=== PATIENT | female | born 1935 | race Caucasian/White ===

== ENCOUNTER 2017-05-07 17:24 | Emergency (ER) | payer MEDICARE, OTHER, SELFPAY ==
[2017-05-07 17:26] VITALS: BP 132/79; PULSE 93; RESP 16; TEMP 36.6; O2SAT 99; BMI 25.4
--- NOTE | 2017-05-07 17:31 | ED.RN ---
PT REPORTS ACHING IN CHEST. RESPIRATORY CALLED FOR EKG.
--- NOTE | 2017-05-07 17:53 | ED.VISSUMM ---
- ER Visit Summary Date of Service: 05/07/17 Chief Complaint: Diarrhea and I just do not feel well History of Present Illness: The patient is a 81 F past medical history of hypertension, high cholesterol and renal insufficiency. Patient's had a prior cholecystectomy and appendectomy. States she has not felt well for weeks. She has had diarrhea. Denies any melena. She has had nausea without vomiting. She has had decreased appetite and decreased intake. Denies any fever. Denies any weight loss. Physical Examination: Elderly female no acute distress. Vital signs are stable afebrile. Pulse ox 9 9% on room air no signs of hypoxia. HEENT exam mildly driving his membranes otherwise unremarkable. Neck nontender no lymphadenopathy. Lungs to auscultation bilaterally. Heart regular rhythm no murmur. Chest nontender. Abdomen soft nondistended normal bowel sounds no peritoneal signs. No organ megaly or masses. No pulsatile masses. Both the right upper right lower quadrant unremarkable. No signs of obstruction. No hernias. She is moving all 4 extremities. They are nontender. No edema. Normal range of motion. Bilateral equal symmetrical dorsi plantar flexion. Bilateral survey technologist strength. Back exam nontender. Neurologically she is awake and alert. Test Results: CBC normal. EKG sinus rhythm rate of 91 with no HI or ischemia. Left bundle branch block. BMP showed potassium of 2.8 she has had low potassium as before. She is on potassium replacement. BUN 25 creatinine 1.25 which is also baseline. Hepatic panel normal. Lipase normal. Troponin normal. Chest x-ray portable one view showed no acute abnormality read both by myself and the radiologist. Emergency Department Course and Treatment: Patient with a very nondescript abdominal discomfort does not feel well. Her exam is benign other than possibly mildly dehydrated. She will be treated with IV fluids and IV Zofran. Labs will be obtained. Treatment Plan: Repeat exam at 1905 the patient is doing well. We discussed all her test results. She states she is currently on potassium she will double that for the next week. Plenty of fluids. Zofran for nausea and follow-up with her primary care physician. Disposition: Discharge Impression: Acute diarrhea of uncertain etiology Hypokalemia Chronic renal insufficiency This note was generated with [employer] software. It may contain incorrect words, spelling, and punctuation that were not noted in review of the chart prior to signing ED Disposition - Plan for ED Patient: Chief Complaint: Diarrhea Referrals: Celio Dumas MD [NON-STAFF] -
[2017-05-07 17:56] VITALS: O2SAT 98
--- NOTE | 2017-05-07 17:56 | ED.DCSUM_ITS ---
- ER Visit Summary Date of Service: 05/07/17 Chief Complaint: Diarrhea and I just do not feel well History of Present Illness: The patient is a 81 F past medical history of hypertension, high cholesterol and renal insufficiency. Patient's had a prior cholecystectomy and appendectomy. States she has not felt well for weeks. She has had diarrhea. Denies any melena. She has had nausea without vomiting. She has had decreased appetite and decreased intake. Denies any fever. Denies any weight loss. Physical Examination: Elderly female no acute distress. Vital signs are stable afebrile. Pulse ox 9 9% on room air no signs of hypoxia. HEENT exam mildly driving his membranes otherwise unremarkable. Neck nontender no lymphadenopathy. Lungs to auscultation bilaterally. Heart regular rhythm no murmur. Chest nontender. Abdomen soft nondistended normal bowel sounds no peritoneal signs. No organ megaly or masses. No pulsatile masses. Both the right upper right lower quadrant unremarkable. No signs of obstruction. No hernias. She is moving all 4 extremities. They are nontender. No edema. Normal range of motion. Bilateral equal symmetrical dorsi plantar flexion. Bilateral chief communications officer strength. Back exam nontender. Neurologically she is awake and alert. Test Results: CBC normal. EKG sinus rhythm rate of 91 with no SD or ischemia. Left bundle branch block. BMP showed potassium of 2.8 she has had low potassium as before. She is on potassium replacement. BUN 25 creatinine 1.25 which is also baseline. Hepatic panel normal. Lipase normal. Troponin normal. Chest x-ray portable one view showed no acute abnormality read both by myself and the radiologist. Emergency Department Course and Treatment: Patient with a very nondescript abdominal discomfort does not feel well. Her exam is benign other than possibly mildly dehydrated. She will be treated with IV fluids and IV Zofran. Labs will be obtained. Treatment Plan: Repeat exam at 1905 the patient is doing well. We discussed all her test results. She states she is currently on potassium she will double that for the next week. Plenty of fluids. Zofran for nausea and follow-up with her primary care physician. Disposition: Discharge Impression: Acute diarrhea of uncertain etiology Hypokalemia Chronic renal insufficiency This note was generated with [employer] software. It may contain incorrect words, spelling, and punctuation that were not noted in review of the chart prior to signing ED Disposition - Plan for ED Patient: Chief Complaint: Diarrhea Referrals: Celio Dumas MD [NON-STAFF] -
[2017-05-07] MEDS: 0.9% Normal Saline 1,000 ML 1000 ML IV (17:57)
--- NOTE | 2017-05-07 18:03 | EKG12_ITS ---
Test Reason : CP Blood Pressure : / mmHG Vent. Rate : 091 BPM Atrial Rate : 091 BPM P-R Int : 160 ms QRS Dur : 136 ms QT Int : 416 ms P-R-T Axes : 050 -25 106 degrees QTc Int : 511 ms Normal sinus rhythm Left bundle branch block Abnormal ECG Confirmed by MANOLO SOMMER, CARLOS ([id number]), newspaper managing editor RAYMOND MONTAÑO ([id number]) on 05/09/2017 4:07:05 PM Referred By: HOME Confirmed By:CARLOS FRENCH MD
--- NOTE | 2017-05-07 18:15 | RAD_ITS ---
STUDY: X-RAY CHEST REASON FOR EXAM: Female, 81 years old. Vertigo, shortness of breath and diarrhea. TECHNIQUE: Single AP portable view of the chest. COMPARISON: Prior comparison studies are not available for review at this time. FINDINGS: Cardiac monitoring leads are present. There is hyperinflation of the lungs consistent with chronic obstructive lung disease (COPD). There is mild interstitial thickening present in both lungs. There is no demonstrated pleural abnormality. There is borderline cardiomegaly. Normal mediastinum and jacob. Normal visualized pulmonary arteries. There is atherosclerotic calcification of the aortic arch with tortuosity. There is demineralization of the osseous structures. Normal visualized ribs, clavicles, and shoulders. There is no demonstrated abnormality of the visualized soft tissue structures of the upper abdomen. RAD/Chest 1 View (Portable) IMPRESSION: No radiographic evidence of acute cardiopulmonary disease. Electronically Signed: Ginny Rosenthal MD at 18:45 EST , Service support ,
[2017-05-07 18:22] LABS: Absolute Neutrophil Count 8.3 X10^3/uL (2.0-7.7); Basophil# 0.01 X10^3/uL; Basophil% 0.1 % (0-1); Eosinophil# 0.11 X10^3/uL; Eosinophils% 1.1 % (0-5); Hematocrit 36.9 % (37-47); Hemoglobin 12.4 g/dl (12.0-15.0); Lymphocyte % 6.2 % (19-41); Mean Corp Hgb Conc 33.6 g/gl (32-36); Mean Corpuscular Hgb 30.2 pg (27.0-32.0); Mean Corpuscular Volume 89.8 fL (81-99); Mean Platelet Vol. 9.3 fl (6.2-12.0); Monocyte# 0.57 X10^3/uL; Monocyte% 5.9 % (0-10); Neutrophil # 8.31 X10^3/uL (2.7-7.7); Neutrophil % 86.6 % (47-70); Platelet Count 248 K/mm3 (150-450); RBC Distribution Width CV 13.5 % (11.6-14.6); RBC Distribution Width SD 44.4 fl (35.1-43.9); Red Blood Count 4.11 M/mm3 (4.2-5.4); White Blood Count 9.6 K/mm3 (4.4-11.0)
[2017-05-07 18:23] LABS: Differential Indicated SCAN CRITERIA MET; POSITIVE COUNT NO; POSITIVE DIFFERENTIAL YES; POSITIVE MORPHOLOGY NO
[2017-05-07 18:31] LABS: AST(SGOT) 20 U/L (15-37); Alanine Aminotransfer ALT/SGPT 22 U/L (13-56); Albumin, Serum 3.5 g/dL (3.2-5.0); Alkaline Phosphatase 44 U/L (45-117); Anion Gap 12 (5-15); BUN 25 mg/dL (7-18); Bilirubin, Direct 0.13 mg/dL (0.00-0.30); Calcium,Total 8.3 mg/dL (8.5-10.1); Chloride 101 mmol/L (98-107); Creatinine, Serum 1.25 mg/dL (0.55-1.02); EST Glomerular Filtration Rate 44 mL/min (>60); Est Glom Filt Rate - Afr Amer 53 mL/min (>60); Estimated Creatinine Clearance 25.78 ml/min; Globulin 4.1 g/dL (2.2-4.2); Glucose 129 mg/dL (74-106); Lipase 228 U/L (73-393); Potassium 2.8 mmol/L (3.5-5.1); Protein, Total 7.6 g/dL (6.4-8.2); Sodium Level 138 mmol/L (136-145)
[2017-05-07 18:37] LABS: Anisocytosis RARE; Platelet Estimate ADEQUATE (ADEQ)
--- OUTSIDE RECORDS SUMMARY | 2017-05-07 18:50 | XMS RPT_ITS ---
:1935 Author Organization OHIP Care Team Providers Name Role Phone CARLOS ORTEGA Attending Unavailable CARLOS ORTEGA Referring Unavailable GRETCHEN VIEIRA (PA) Attending Unavailable GRETCHEN VIEIRA (PA) Referring Unavailable CARLOS ORTEGA Referring Unavailable CARLOS ORTEGA Attending Unavailable CARLOS ORTEGA Referring Unavailable MICHELLE DUNHAM (SALES RECRUITER) Attending Unavailable MICHELLE DUNHAM (SALES RECRUITER) Referring Unavailable CARLOS ORTEGA Attending Unavailable CARLOS ORTEGA Referring Unavailable Celio Ortega Primary Care Unavailable Refugio Sanches Attending Unavailable Celio Tello Attending Unavailable Denny Case Primary Care Unavailable PROBLEMS PROBLEMS DATE TYPE CONDITION / CODE ATTENDING STATUS SOURCE 09/30/2016 Active Low back pain / NA Active [facility] M54.5(ICD-10) [facility] [place] Repository 07/02/2016 Active Essential NA Active [facility] (primary) Clinic Main hypertension / [place] I10(ICD-10) Repository 07/02/2016 Active Disorder of kidney NA Active [facility] and ureter, Clinic Main unspecified / [place] N28.9(ICD-10) Repository 06/27/2016 Active Urinary tract NA Active [facility] infection, site Clinic Main not specified / [place] N39.0(ICD-10) Repository 05/23/2016 Active Hyperglycemia, NA Active [facility] unspecified / Clinic Main R73.9(ICD-10) [facility] Repository 05/23/2016 Active Cystitis, NA Active [facility] unspecified Clinic Main without hematuria [place] / N30.90(ICD-10) Repository 05/17/2016 Active Unknown / CARLOS ORTEGA Active [place] UNK(Medicity R Clinic Main Unknown) [place] Repository 05/20/2016 Admitting ACUTE CYSTITIS Sanches, Refugio Active [facility] diagnosis WITHOUT HEMATURIA Community / N30.00(ICD-10) Hospital Repository 05/20/2016 Admitting HYPOKALEMIA / Sanches, Refugio Active [place] diagnosis E87.6(ICD-10) [facility] Repository 05/20/2016 Admitting OTHER ABNORMAL Sanches, Refugio Active [place] diagnosis GLUCOSE / Community R73.09(ICD-10) Hospital Repository 05/20/2016 Admitting 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, Refugio Active [place] diagnosis DISEASE W STAGE 5 [facility] Hospital / I12.0(ICD-10) Repository 05/20/2016 Admitting END STAGE RENAL Sanches, Refugio Active [place] diagnosis DISEASE / Community N18.6(ICD-10) Hospital Repository 05/20/2016 Admitting PURE Sanches, Refugio Active [facility] diagnosis HYPERCHOLESTEROLEM Community [place], UNSPECIFIED / Hospital E78.00(ICD-10) Repository 05/20/2016 Admitting INTERMEDIATE Sanches, Refugio Active [place] diagnosis (CURRENT) USE OF [facility] ASPIRIN / Hospital Z79.82(ICD-10) Repository 05/20/2016 Admitting OTHER INTERMEDIATE Sanches, Refugio Active [facility] diagnosis (CURRENT) DRUG [facility] THERAPY / Hospital Z79.899(ICD-10) Repository PROCEDURES PROCEDURES No Procedure Records FoundRESULTS RESULTS CBC W/DIFF, AUTOMATED Collected: 05/07/2017 Status: F Source: [facility] 6:00 PM [facility] REPOSITORY TYPE CODE TESTS RESULT OUT OF RANGE REFERENCE UNITS LAB L100.1000 Normal 4.4-11.0 K/mm3 WBC 9.6 LAB L100.1200 Low 4.2-5.4 M/mm3 RBC 4.11 LAB L100.1300 Normal 12.0-15.0 g/dl HGB 12.4 LAB L100.1400 Low 37-47 % HCT 36.9 LAB L100.1500 Normal 81-99 fL MCV 89.8 LAB L100.1600 Normal 27.0-32.0 pg MCH 30.2 LAB L100.1700 Normal 32-36 g/gl MCHC 33.6 LAB L100.1810 Normal 11.6-14.6 % RDW 13.5 CV LAB L100.1820 High 35.1-43.9 fl RDW 44.4 SD LAB L100.1900 Normal 150-450 K/mm3 PLT 248 LAB L100.2000 Normal 6.2-12.0 fl MPV 9.3 LAB L100.2100 High 47-70 % NEUT% 86.6 LAB L100.2200 Low 19-41 % LY% 6.2 LAB L100.2300 Normal 0-10 % MONO% 5.9 LAB L100.2400 Normal 0-5 % EO% 1.1 LAB L100.2500 Normal 0-1 % BASO% 0.1 LAB L100.2550 Normal 0.0-0.9 % IM 0.100 GRAN % Result Comment: IG% - Immature Granulocytes (promyelocytes, myelocytes andmetamyelocytes) > 1% indicates that a LEFT SHIFT is Present. LAB L100.2620 High 2.0-7.7 X10 3/uL Absolute 8.3 Neut LAB L100.2720 Low 0.83-4.51 X10 3/ul Absolute 0.60 Lymph LAB L100.4500 Normal SMEAR SEE COMMENT COMMENT Result Comment: LYMPHOPENIA NOTED LAB L100.5500 Normal ADEQ PLT ADEQUATE EST LAB L100.7300 Normal ANISO RARE Performed By: #### L100.0100 ####[facility] [id number] [place], [place], [address] BASIC METABOLIC Collected: 05/07/2017 Status: F Source: [place] PROFILE ([facility]) 6:00 PM [facility] REPOSITORY Order Comment: 'TROP' Serial specimen #1, #2, #3, or #4: 1 TYPE CODE TESTS RESULT OUT OF RANGE REFERENCE UNITS LAB L501.0100 High 74-106 mg/dL GLU 129 Result Comment: Fasting Glucose result greater than or equal to 126 mg/ dLsuggests DIABETES MELLITUS per A.D.A. criteria.Please note revised GLUCOSE reference range /02/2018. LAB L501.1000 High 7-18 mg/dL BUN 25 LAB L501.1100 High 0.55-1.02 mg/dL CREAT,SERUM 1.25 Result Comment: The validity of the calculated GFR AND GFRAA in patients over70 years has not been determined. Clinical correlation isessential. LAB L501.1110 Low >60 mL/min EST GFR 44 Result Comment: Non- GFR Calc LAB L501.1115 Low >60 mL/min EST GFR - AA 53 Result Comment: GFR Calc LAB L501.1255 Normal ml/min Estimated 25.78 CRCL LAB L501.1300 Normal 10-20 RATIO BUN/CRE 20.0 LAB L501.2200 Low 8.5-10 mg/dL CA 8.3 .1 LAB L501.5300 Normal 136-14 mmol/L NA 138 5 LAB L501.5600 Low 3.5-5. mmol/L K 2.8 1 LAB L501.5900 Normal 98-107 mmol/L CL 101 LAB L501.6100 Normal 21.0-3 mmol/L CO2 25.0 2.0 LAB L501.6200 Normal 5-15 GAP 12 Performed By: #### L500.2500, L500.3400, L501.2450, L501.4010 ####[facility] [address] [place], [place], [address] LIVER PROFILE Collected: 05/07/2017 Status: F Source: [place] 6:00 PM [facility] REPOSITORY Order Comment: 'TROP' Serial specimen #1, #2, #3, or #4: 1 TYPE CODE TESTS RESULT OUT OF RANGE REFERENCE UNITS LAB L501.1500 Normal 6.4-8.2 g/dL T 7.6 PROT LAB L501.1800 Normal 3.2-5.0 g/dL ALB 3.5 LAB L501.1950 Normal 2.2-4.2 g/dL GLOB 4.1 LAB L501.4100 Normal 15-37 U/L AST 20 LAB L501.4305 Low 45-117 U/L ALK P 44 LAB L501.4405 Normal 13-56 U/L ALT 22 Result Comment: Please note revised ALT reference range vlwbynciw70/28/2018. LAB L501.4600 Normal 0.20-1.00 mg/dL T BILI 0.50 LAB L501.4700 Normal 0.00-0.30 mg/dL D BILI 0.13 Performed By: #### L500.2500, L500.3400, L501.2450, L501.4010 ####[facility] [address] [place], [address] LIPASE Collected: 05/07/2017 Status: F Source: [place] 6:00 PM [facility] REPOSITORY Order Comment: 'TROP' Serial specimen #1, #2, #3, or #4: 1 TYPE CODE TESTS RESULT OUT OF RANGE REFERENCE UNITS LAB L501.2450 Normal 73-393 U/L LIPASE 228 Performed By: #### L500.2500, L500.3400, L501.2450, L501.4010 ####[facility] [address] [place], [address] TROPONIN-I Collected: 05/07/2017 Status: F Source: [place] 6:00 PM [facility] REPOSITORY Order Comment: 'TROP' Serial specimen #1, #2, #3, or #4: 1 TYPE CODE TESTS RESULT OUT OF RANGE REFERENCE UNITS LAB L501.4010 Normal <0.06 ng/mL < TROPONIN-I 0.02 Result Comment: TROPONIN-I EXPECTED VALUES <0.05 NEGATIVE 0.06 - 0.59 AT RISK OF AR > OR = 0.60 SUGGEST AR Performed By: #### L500.2500, L500.3400, L501.2450, L501.4010 ####[facility] [address] [place], [address] CHEST 1 VIEW Observed: 05/07/2017 Status: F Source: [place] (PORTABLE) 5:54 PM [facility] RE[facility]ITORY [facility] [id number] [place], [place] [address]Nxmtw 1 View (Portable)MR#: [id number] Acct: [id number]: TALA LOONEY Rep #: [id number]: 1935 F 81 From: Ginny Rosenthal MDPCP: Celio Ortega MD Status: PRE ERStudy: Chest 1 View (Portable) Date of Exam: 05/07/17Exam# [id number] Ordering Dr: Celio Tello MDSTUDY: X-RAY CHESTREASON FOR EXAM: Female, 81 years old. Vertigo, shortness of breath anddiarrhea.TECHNIQUE: Single AP portable view of the chest.COMPARISON: Prior comparison studies are not available for review at thistime. FINDINGS:Cardiac monitoring leads are present.There is hyperinflation of the lungs consistent with chronic obstructivelung disease (COPD). There is mild interstitial thickening present in bothlungs. There is no demonstrated pleural abnormality.There is borderline cardiomegaly. Normal mediastinum and jacob. Normalvisualized pulmonary arteries. There is atherosclerotic calcification ofthe aortic arch with tortuosity.There is demineralization of the osseous structures. Normal visualizedribs, clavicles, and shoulders.There is no demonstrated abnormality of the visualized soft tissuestructures of the upper abdomen. ORDER #: [id number] RAD/Chest 1 View (Portable)IMPRESSION:No radiographic evidence of acute cardiopulmonary disease.Electronically Signed:Ginny Rosenthal MD at 18:45 ESTTel , Service support , HD: Celio Ortega MD; Celio Tello MD Refractory Technician:Signed OBSOLETE Observed: 04/04/2017 Status: COMPLETED Source: [place] 12:00 AM [facility] REPOSITORY Refill (ALECWS) ---------TALA LOONEY ([id number]) 1935 FDate Time Provider Department04/04/17 CARLOS ORTEGA During your visit today, we recorded the following information about you:Carlos Ortega MD 04/04/2017 10: 34 AM SignedThe following approved medication requests have been transmitted electronically.Signed Prescriptions Disp Refills metoprolol succinate ER (TOPROL XL) 50 mg 24 hr tablet 135 tablet 0 Sig: TAKE ONE TABLET BY MOUTH IN THE MORNING AND TAKE ONE-HALF tablet IN THEEVENING JUSTICE: No Authorizing Provider: CARLOS ORTEGA MDAllergies As of Date: 04/04/2017 Noted Allergy ReactionDEMEROL (MEPERIDINE (PF)) 09/10/2014 14 - Other: See Comments Comments: knocked me for a loopINFLUENZA VAC TYP A,B SURF ANT 12/28/2004PENICILLINS 12/28/2004SULFA (SULFONAMIDE ANTIBIOTICS) 05/28/2016 14 - Other: See Comments Comments : pharmacist has sulfa as allergy 05/27/2016Date Reviewed: 12/12/2016Reviewed by: Ayanna George Ma - Fully AssessedReason for Visit: Refill Request [94]Order(s):metoprolol succinate ER (TOPROL XL) 50 mg 24 hr tabletTAKE ONE TABLET BY MOUTH IN THE MORNING AND TAKE ONE-HALF tablet IN THE EVENINGDisp: 135 tabletRfl: 0Prescriptions as of 04/04/2017 Sig: METOPROLOL SUCCINATE ER 50 MG* TAKE ONE TABLET BY MOUTH IN T* AMLODIPINE 5 MG TABLET TAKE ONE TABLET BY MOUTH EVER* TRIAMTERENE 37.5 MG-HYDROCHLO* Take 1 capsule by mouth once * POTASSIUM CHLORIDE ER 20 MEQ * TAKE ONE TABLET BY MOUTH ONCE* ATORVASTATIN 10 MG TABLET Take 1 tablet by mouth once d* CHOLECALCIFEROL (VITAMIN D3) * Take 1 tablet by mouth once d* CALCIUM 500 MG TABLET Take 1 tablet by mouth twice * ASPIRIN 81 MG CAPSULE,DELAYED* Take by mouth once daily.Problem List As Of Date 04/04/2017 Noted Resolved Essential hypertension [I10] Mixed hyperlipidemia [E78.2] OSTEOPOROSIS NOS [M81.0] ANEMIA NOS [D64.9] BUNDLE BRANCH BLOCK NOS [I45.4] More... APPENDICITIS ACUTE [K35.80] INVALID FOR*2008 Hypokalemia [E87.6] INVALID FOR* Change in bowel habits [R19.4] INVALID FOR*Prescriptions ordered this encounter Disp Refills Start End METOPROLOL SUCCINATE ER 50 MG TABLET* 135 * 0 04/04/2017 Cmt: This prescription was filled on . Any refills authorized will be placed on file. Sig: TAKE ONE TABLET BY MOUTH IN THE MORNING AND TAKE ONE-HALF tablet IN THE EVENINGMedications Discontinued During This Encounter metoprolol succinate ER (TOPROL XL) * 135 * 3 07/04/2016 04/04/2017 Si tablet by mouth in the morning and 1/2 tablet in the evening, total of 75 mg daily. Disc: Reason for discontinue is not on file. Status:Closed by NAT GALVEZ on OBSOLETE Observed: 03/25/2017 Status: COMPLETED Source: [place] 12:00 AM [facility] REPOSITORY Refill (FAMPWS) ---------TALA LOONEY ([id number]) 1935 FDate Time Provider Department03/25/17 CARLOS ORTEGA During your visit today, we recorded the following information about you:Kandi Phelanheather Rios 03/25/2017 10:12 AM SignedPlease see patient's MyChart requestCarlos Ortega MD 03/27/2017 7:58 AM SignedThe following approved medication requests have been transmitted electronically.She has appt in June with Dr CaseSigned Prescriptions Disp Refills amLODIPine (NORVASC) 5 mg tablet 90 tablet 0 Sig: TAKE ONE TABLET BY MOUTH EVERY DAY JUSTICE: No Authorizing Provider: CARLOS ORTEGA MDAllergies As of Date: 03/25/2017 Noted Allergy ReactionDEMEROL (MEPERIDINE (PF)) 09/10/2014 14 - Other: See Comments Comments: knocked me for a loopINFLUENZA VAC TYP A, B SURF ANT 12/28/2004PENICILLINS 12/28/2004SULFA (SULFONAMIDE ANTIBIOTICS) 05/28/2016 14 - Other: See Comments Comments: pharmacist has sulfa as allergy 2016Date Reviewed: 12/12/2016Reviewed by: Ayanna George Ma - Fully AssessedReason for Visit : Refill Request [94]Order(s):amLODIPine (NORVASC) 5 mg tabletTAKE ONE TABLET BY MOUTH EVERY DAYDisp: 90 tabletRfl: 0Prescriptions as of 03/25/2017 Sig: AMLODIPINE 5 MG TABLET TAKE ONE TABLET BY MOUTH EVER* TRIAMTERENE 37.5 MG-HYDROCHLO* Take 1 capsule by mouth once * POTASSIUM CHLORIDE ER 20 MEQ * TAKE ONE TABLET BY MOUTH ONCE* METOPROLOL SUCCINATE ER 50 MG* 1 tablet by mouth in the mor* ATORVASTATIN 10 MG TABLET Take 1 tablet by mouth once d* CHOLECALCIFEROL (VITAMIN D3) * Take 1 tablet by mouth once d* CALCIUM 500 MG TABLET Take 1 tablet by mouth twice * ASPIRIN 81 MG CAPSULE,DELAYED* Take by mouth once daily.Problem List As Of Date 03/25/2017 Noted Resolved Essential hypertension [I10] Mixed hyperlipidemia [E78.2] OSTEOPOROSIS NOS [M81.0] ANEMIA NOS [D64.9] BUNDLE BRANCH BLOCK NOS [I45.4] More... APPENDICITIS ACUTE [K35.80] INVALID FOR*2008 Hypokalemia [E87.6] INVALID FOR* Change in bowel habits [R19.4] INVALID FOR*Prescriptions ordered this encounter Disp Refills Start End AMLODIPINE 5 MG TABLET 90 t* 0 03/27/2017 Cmt: This prescription was filled on . Any refills authorized will be placed on file. Sig: TAKE ONE TABLET BY MOUTH EVERY DAYMedications Discontinued During This Encounter amLODIPine (NORVASC) 5 mg tablet 90 t * 3 06/28/2016 03/27/2017 Route: ORAL Sig: Take 1 tablet by mouth once daily. Disc: Reason for discontinue is not on file. Status:Closed by NAT GALVEZ on 03/28/17 OBSOLETE Observed: 02/14/2017 Status: COMPLETED Source: [place] 12:00 AM [facility] REPOSITORY Refill (FAMPWS) ---------TALA LOONEY ([id number]) 1935 FDate Time Provider Sxekczixee11/12/17 CARLOS ORTEGAPKALYN During your visit today, we recorded the following information about you:Daphne Marko Psr 02/14/2017 11:15 AM SignedPatient has been identified by name and date of : YesRX INSTRUCTIONS:Patient aware RX will be sent to pharmacy. No need to notify patient.Daphne Marko DerLori Patricia CLARK 2016 12:03 PM SignedLOV: 12/12/16NOV: 05/16/[address] Rothman REFILL: 08/16/16 #90 w 1 refillCarlos Ortega MD 02/14/2017 5:36 PM SignedThe following approved medication requests have been transmitted electronically.Signed Prescriptions Disp Refills triamterene- hydrochlorothiazide 37.5-25 mg per capsule 90 capsule 1 Sig: Take 1 capsule by mouth once daily. JUSTICE: No Authorizing Provider: CARLOS ORTEGA MDRoxanne James Ma 02/15/2017 9:25 AM SignedThe following approved medication requests have been transmitted electronically.Signed Prescriptions Disp Refills triamterene-hydrochlorothiazide 37.5-25 mg per capsule 90 capsule 1 Sig: Take 1 capsule by mouth once daily. JUSTICE: No Authorizing Provider: CARLOS ORTEGA As of Date: 02/14/2017 Noted Allergy ReactionDEMEROL (MEPERIDINE (PF)) 09/10 14 - Other: See Comments Comments: knocked me for a loopINFLUENZA VAC TYP A,B SURF ANT 12/28/2004PENICILLINS 12/28/2004SULFA (SULFONAMIDE ANTIBIOTICS) 05/28/2016 14 - Other: See Comments Comments: pharmacist has sulfa as allergy 05/27/2016Date Reviewed: 2016Reviewed by: Ayanna George Ma - Fully AssessedReason for Visit: Refill Request [94]Reason For Visit History RecordedVisit Diagnosis:Essential hypertension [I10]Order(s):triamterene- hydrochlorothiazide 37.5-25 mg per capsuleTake 1 capsule by mouth once daily.Disp: 90 capsuleRfl: 1Prescriptions as of 02/14/2017 Sig: TRIAMTERENE 37.5 MG-HYDROCHLO* Take 1 capsule by mouth once * POTASSIUM CHLORIDE ER 20 MEQ * TAKE ONE TABLET BY MOUTH ONCE* METOPROLOL SUCCINATE ER 50 MG* 1 tablet by mouth in the mor* AMLODIPINE 5 MG TABLET Take 1 tablet by mouth once d* ATORVASTATIN 10 MG TABLET Take 1 tablet by mouth once d* CHOLECALCIFEROL (VITAMIN D3) * Take 1 tablet by mouth once d* CALCIUM 500 MG TABLET Take 1 tablet by mouth twice * ASPIRIN 81 MG CAPSULE,DELAYED* Take by mouth once daily.Problem List As Of Date 02/14/2017 Noted Resolved Essential hypertension [I10] Mixed hyperlipidemia [E78.2] OSTEOPOROSIS NOS [M81.0] ANEMIA NOS [D64.9] BUNDLE BRANCH BLOCK NOS [I45.4] More... APPENDICITIS ACUTE [K35.80] INVALID FOR*01/19/2009 Hypokalemia [E87.6] INVALID FOR* Change in bowel habits [R19.4] INVALID FOR*Prescriptions ordered this encounter Disp Refills Start End TRIAMTERENE 37.5 MG-HYDROCHLOROTHIAZ* 90 c* 1 02/14/2017 Route: ORAL Sig: Take 1 capsule by mouth once daily.Medications Discontinued During This Encounter triamterene-hydrochlorothiazide 37.5* 90 c* 1 08/16/2016 02/14/2017 Route: ORAL Sig: Take 1 capsule by mouth once daily. Disc: Reason for discontinue is not on file. Status:Closed by ELVIA REYNOLDS MA on 02/15/17 OBSOLETE Observed: 01/14/2017 Status: COMPLETED Source: [place] 12:00 AM [facility] REPOSITORY Refill (FAMPWS) ---------TALA LOONEY ([id number]) 1935 FDate Time Provider Raedrupvix90/11/17 CARLOS ORTEGA During your visit today, we recorded the following information about you:Carlos Ortega MD 01/16/2017 1: 44 PM SignedThe following approved medication requests have been transmitted electronically.Signed Prescriptions Disp Refills potassium chloride ER (K-DUR, KLOR-CON) 20 mEq tablet 90 tablet 3 Sig : TAKE ONE TABLET BY MOUTH ONCE DAILY JUSTICE: No Authorizing Provider: CARLOS ORTEGA [facility] As of Date: 01/14/2017 Noted Allergy ReactionDEMEROL (MEPERIDINE (PF)) 09/10/2014 14 - Other: See Comments Comments: knocked me for a loopINFLUENZA VAC TYP A, B SURF ANT 12/28/2004PENICILLINS 12/28/2004SULFA (SULFONAMIDE ANTIBIOTICS) 05/28/2016 14 - Other: See Comments Comments: pharmacist has sulfa as allergy 2016Date Reviewed: 12/12/2016Reviewed by: Ayanna George Ma - Fully AssessedReason for Visit : Refill Request [94]Order(s):potassium chloride ER (K-DUR, KLOR-CON) 20 mEq tabletTAKE ONE TABLET BY MOUTH ONCE DAILYDisp: 90 tabletRfl: 3Prescriptions as of 01/14/2017 Sig: POTASSIUM CHLORIDE ER 20 MEQ * TAKE ONE TABLET BY MOUTH ONCE* TRIAMTERENE 37.5 MG-HYDROCHLO* Take 1 capsule by mouth once * METOPROLOL SUCCINATE ER 50 MG* 1 tablet by mouth in the mor* AMLODIPINE 5 MG TABLET Take 1 tablet by mouth once d* ATORVASTATIN 10 MG TABLET Take 1 tablet by mouth once d* CHOLECALCIFEROL (VITAMIN D3) * Take 1 tablet by mouth once d* CALCIUM 500 MG TABLET Take 1 tablet by mouth twice * ASPIRIN 81 MG CAPSULE,DELAYED* Take by mouth once daily.Problem List As Of Date 01/14/2017 Noted Resolved Essential hypertension [I10] Mixed hyperlipidemia [E78.2] OSTEOPOROSIS NOS [M81.0] ANEMIA NOS [D64.9] BUNDLE BRANCH BLOCK NOS [I45.4] More... APPENDICITIS ACUTE [K35.80] INVALID FOR*2008 Hypokalemia [E87.6] INVALID FOR* Change in bowel habits [R19.4] INVALID FOR*Prescriptions ordered this encounter Disp Refills Start End POTASSIUM CHLORIDE ER 20 MEQ TABLET,* 90 t* 3 01/16/2017 Cmt: This prescription was filled on 01/14/2017. Any refills authorized will be placed on file. Sig: TAKE ONE TABLET BY MOUTH ONCE DAILYMedications Discontinued During This Encounter potassium chloride ER (K-DUR, KLOR-C* 90 t * 3 05/03/2016 01/16/2017 Route: ORAL Sig: Take 1 tablet by mouth once daily. Disc: Reason for discontinue is not on file. Status:Closed by SHIMA LOPEZ MA on 01/16/17 PROGRESS Observed: 12/12/2016 Status: COMPLETED Source: [place] 3:23 PM [facility] [place] REPOSITORY HNO ID: [id number]: Carlos Bolivarice: (none) Author Type: PhysicianType: Progress NotesFiled: 12/12/2016 3:25 PMNote Text:Chief ComplaintPatient presents with:F/U 6 MonthHPIRita B Aayush is a 81 year old female who presents here today forfollow-up of pre-diabetes, hypertension .ACTIVE PROBLEM LISTEssential HypertensionMixed HyperlipidemiaOsteoporosis, UnspecifiedAnemia, UnspecifiedBundle Branch Block, UnspecifiedHypokalemiaChange in Bowel HabitsPast medical history, appointments, medications, allergies reviewed.Previous Medical HistoryPAST MEDICAL HISTORYDiagnosis Date- Anemia, unspecified- Bundle branch block, unspecified left- Osteoporosis, unspecified- Other and unspecified hyperlipidemia- Other symptoms involving digestive system(787.99)- Unspecified hypertensive heart disease without heart failurePrevious Surgical HistoryPAST SURGICAL HISTORYProcedure Laterality Date- COLONOSCOP W/ OR W/O [facility] SPEC 12/24/10- LAPAROSCOPY, SURGICAL, APPENDECTOMY 4-55-44Lgmqlt HistoryFAMILY HISTORYProblem Relation Age of Onset- Cancer Brother prostate- Blood Disease Sister 87Patient AllergiesALLERGIESAllergen Reactions- Demerol [Meperidine* Other: See Comments knocked me for a loop- Influenza Vac Typ A*- Penicillins- Sulfa (Sulfonamide * Other: See Comments pharmacist has sulfa as allergy 05/27/2016Current MedicationsCurrent Outpatient Prescriptions on File Prior to Visit:triamterene-hydrochlorothiazide 37.5-25 mg per capsule Take 1 capsule bymouth once daily.metoprolol succinate ER (TOPROL XL) 50 mg 24 hr tablet 1 tablet by mouthin the morning and 1/2 tablet in the evening, total of 75 mg daily.amLODIPine (NORVASC) 5 mg tablet Take 1 tablet by mouth once daily.atorvastatin (LIPITOR) 10 mg tablet Take 1 tablet by mouth once daily.sulfamethoxazole-trimethoprim (BACTRIM) 400-80 mg per tablet Take 2tablets by mouth twice daily.predniSONE (DELTASONE) 50 mg tab Take 1 tablet by mouth as directed. Ifany hives or rash from Sulfa antibioticsdiphenhydrAMINE (BENADRYL) 50 mg capsule Take 1 capsule by mouth asdirected. If any hives or rash from Sulfa antibioticspotassium chloride ER (K-DUR, KLOR-CON) 20 mEq tablet Take 1 tablet bymouth once daily.Cholecalciferol, Vitamin D3, 2,000 unit cap Take 1 tablet by mouth oncedaily.calcium, elemental, Tab Take 1 tablet by mouth twice daily.Aspirin 81 mg ORAL CpDR Take by mouth once daily.No current facility-administered medications on file prior to visit.Social HistorySocial History Marital status: Spouse name: Years of education: Number of children:Social History Main Topics Smoking status: Never Smoker Smokeless status: Never Used Alcohol use: No Drug use: NoSocial History Narrative 2005. 3 years but were together for years prior. Briefprevious marriage. Brother 2013.ROS:General: Feels well, no weight changes, fever, chills.HEENT: No sinus congestion, earache, sore throat.Cardiac: No chest pain, palpitations, shortness of breathResp: No cough, wheeze.GI: No reflux symptoms, food intolerance, bowel changes.: No urinary frequency, dysuria.MS: No pain or joint complaints.PHYSICAL EXAMINATIONBP 140/70 Pulse 74 Resp 16 Wt 59.4 kg (131 lb) BMI 25.58 kg/g0Dhlebdr: Alert and oriented, no distress, pleasant and cooperative.Heart: Regular, normal S1 and S2, no murmurs, rubs, or gallopsLungs: Clear to auscultation bilaterallyAbdomen: BenignExtremities: Feet/ankles without edema, posterior tibial pulses full andsymmetricalHealth Maintenance ListZOSTAVAX due on 1996DIABETES SCREEN due on 10/01/2019TETANUS due on 7BONE DENSITY CompletedADULT PREVNAR-13 CompletedPNEUMOVAX AGE 65 AND OVER WITH 5YR LOOKBACK CompletedData reviewedLab ResultsComponent Value Date/TimeCHOL 187 01/04/2016 09:24 AMHDL 45 (L) 01/04/2016 09:24 AMLDL 105 01/04/2016 09:24 IACCW0C 6.1 (H) 05/23/2016 09:58 AMAssessment/Plan:(I10) Essential hypertension (primary encounter diagnosis)Comment:Plan: COMP METABOLIC PANEL(E78.2) Mixed hyperlipidemiaComment :Plan: LIPID PANEL BASIC(Z88.7) History of influenza vaccine allergyComment:Plan: appropriately declines shot(R73.9) HyperglycemiaComment:Plan: HGB A1C, COMP METABOLIC PANELLabs ordered for before next appt. Dr Wang medications selected for refill.RTO:Carlos Ortega MD CNOV Observed: 12/12/2016 Status: COMPLETED Source: MOBILE 2:40 PM [facility] REPOSITORY Office Visit (FAMPWS) ---------TALA LOONEY ([id number]) 1935 [facility] Tgtovnqiub97/9/17 2:40 PM CARLOS ORTEGA During your visit today, we recorded the following information about you: Pulse Respiration Blood pressure Weight 74/minute 16/minute 140/70 59.4 kgCarlos Ortega MD 12/12/2016 3:25 PM SignedChief ComplaintPatient presents with:F/U 6 MonthHPIRita B Aayush is a 81 year old female who presents here today for follow-upof pre-diabetes, hypertension .ACTIVE PROBLEM LISTEssential HypertensionMixed HyperlipidemiaOsteoporosis, UnspecifiedAnemia, UnspecifiedBundle Branch Block, UnspecifiedHypokalemiaChange in Bowel HabitsPast medical history , appointments, medications, allergies reviewed.Previous Medical HistoryPAST MEDICAL HISTORYDiagnosis Date- Anemia, unspecified- Bundle branch block, unspecified left- Osteoporosis, unspecified- Other and unspecified hyperlipidemia- Other symptoms involving digestive system(787.99)- Unspecified hypertensive heart disease without heart failurePrevious Surgical HistoryPAST SURGICAL HISTORYProcedure Laterality Date- COLONOSCOP W/ OR W/O [facility] SPEC 12/24/10- LAPAROSCOPY, SURGICAL, APPENDECTOMY [id number] HistoryFAMILY HISTORYProblem Relation Age of Onset- Cancer Brother prostate- Blood Disease Sister 87Patient AllergiesALLERGIESAllergen Reactions- Demerol [Meperidine* Other: See Comments ANDquot;knocked me for a loopANDquot;- Influenza Vac Typ A*- Penicillins- Sulfa (Sulfonamide * Other: See Comments pharmacist has sulfa as allergy 05/27/2016Current MedicationsCurrent Outpatient Prescriptions on File Prior to Visit:triamterene-hydrochlorothiazide 37.5-25 mg per capsule Take 1 capsule by mouthonce daily.metoprolol succinate ER (TOPROL XL) 50 mg 24 hr tablet 1 tablet by mouth inthe morning and 1/2 tablet in the evening, total of 75 mg daily.amLODIPine ( NORVASC) 5 mg tablet Take 1 tablet by mouth once daily.atorvastatin (LIPITOR) 10 mg tablet Take 1 tablet by mouth once daily.sulfamethoxazole-trimethoprim (BACTRIM) 400-80 mg per tablet Take 2 tablets bymouth twice daily.predniSONE (DELTASONE) 50 mg tab Take 1 tablet by mouth as directed. If anyhives or rash from Sulfa antibioticsdiphenhydrAMINE (BENADRYL) 50 mg capsule Take 1 capsule by mouth as directed.If any hives or rash from Sulfa antibioticspotassium chloride ER (K-DUR, KLOR-CON) 20 mEq tablet Take 1 tablet by mouthonce daily.Cholecalciferol, Vitamin D3, 2,000 unit cap Take 1 tablet by mouth once daily.calcium, elemental, Tab Take 1 tablet by mouth twice daily.Aspirin 81 mg ORAL CpDR Take by mouth once daily.No current facility-administered medications on file prior to visit.Social HistorySocial History Marital status: Spouse name: Years of education: Number of children:Social History Main Topics Smoking status: Never Smoker Smokeless status: Never Used Alcohol use: No Drug use: NoSocial History Narrative 2005. 3 years but were together for years prior. Briefprevious marriage. Brother 2013.ROS:General: Feels well, no weight changes, fever, chills.HEENT: No sinus congestion, earache, sore throat.Cardiac: No chest pain, palpitations, shortness of breathResp: No cough, wheeze.GI: No reflux symptoms, food intolerance, bowel changes.: No urinary frequency, dysuria.MS: No pain or joint complaints.PHYSICAL EXAMINATIONBP 140/70 Pulse 74 Resp 16 Wt 59.4 kg ( 131 lb) BMI 25.58 kg/j2Ftyysjn: Alert and oriented, no distress, pleasant and cooperative.Heart : Regular, normal S1 and S2, no murmurs, rubs, or gallopsLungs: Clear to auscultation bilaterallyAbdomen: BenignExtremities: Feet/ankles without edema, posterior tibial pulses full andsymmetricalHealth Maintenance ListZOSTAVAX due on 1996DIABETES SCREEN due on 2019TETANUS due on 7BONE DENSITY CompletedADULT PREVNAR-13 CompletedPNEUMOVAX AGE 65 AND OVER WITH 5YR LOOKBACK CompletedData reviewedLab ResultsComponent Value Date/TimeCHOL 187 01/04/2016 09:24 AMHDL 45 (L) 01/04/2016 09:24 AMLDL 105 01/04/2016 09:24 DDHWF8I 6.1 (H) 05/23/2016 09:58 AMAssessment/Plan:(I10) Essential hypertension (primary encounter diagnosis)Comment:Plan: COMP METABOLIC PANEL(E78.2) Mixed hyperlipidemiaComment:Plan: LIPID PANEL BASIC(Z88.7) History of influenza vaccine allergyComment:Plan: appropriately declines shot(R73.9) HyperglycemiaComment:Plan: HGB A1C, COMP METABOLIC PANELLabs ordered for before next appt. Dr Wang medications selected for refill.RTO: Carlos Ortega MDReferring Provider: CARLOS ORTEGA [[id number]]Allergies As of Date: 2016 Noted Allergy ReactionDEMEROL (MEPERIDINE (PF)) 09/10/2014 14 - Other: See Comments Comments: knocked me for a loopINFLUENZA VAC TYP A,B SURF ANT 12/28/2004PENICILLINS 12/28/2004SULFA (SULFONAMIDE ANTIBIOTICS) 05/28/2016 14 - Other: See Comments Comments: pharmacist has sulfa as allergy 05/27/2016Date Reviewed: 12/12/2016Reviewed by: Ayanna George Ma - Fully AssessedReason for Visit: F/U 6 Month [444]Primary Visit Diagnosis: Essential hypertension [I10] Other Visit Diagnoses:Mixed hyperlipidemia [E78.2] History of influenza vaccine allergy [Z88.7] Hyperglycemia [R73.9]Order(s): HGB A1C [ECCSM8W] Order #: [id number] FUTURE COMP METABOLIC PANEL [SQCMP] Order #: [id number] FUTURE LIPID PANEL BASIC [SQLIPB] Order #: [id number] FUTUREPrescriptions as of 12/12/2016 Sig: TRIAMTERENE 37.5 MG-HYDROCHLO* Take 1 capsule by mouth once * METOPROLOL SUCCINATE ER 50 MG* 1 tablet by mouth in the mor* AMLODIPINE 5 MG TABLET Take 1 tablet by mouth once d* ATORVASTATIN 10 MG TABLET Take 1 tablet by mouth once d* POTASSIUM CHLORIDE ER 20 MEQ * Take 1 tablet by mouth once d* CHOLECALCIFEROL (VITAMIN D3) * Take 1 tablet by mouth once d* CALCIUM 500 MG TABLET Take 1 tablet by mouth twice * ASPIRIN 81 MG CAPSULE ,DELAYED* Take by mouth once daily.Problem List As Of Date 12/12/2016 Noted Resolved Essential hypertension [I10] Mixed hyperlipidemia [E78.2] OSTEOPOROSIS NOS [M81.0] ANEMIA NOS [D64.9] BUNDLE BRANCH BLOCK NOS [I45.4] More... APPENDICITIS ACUTE [K35.80] INVALID FOR*01/19/2009 Hypokalemia [E87.6] INVALID FOR* Change in bowel habits [R19.4] INVALID FOR*Medications Discontinued During This Encounter sulfamethoxazole-trimethoprim (BACTR* 20 t* 0 06/03/2016 12/12/2016 Cmt: Supplying pt with Prednisone and benadryl to have on hand if any hives or rash She is aware that any difficulty swallowing or breathing she needs to go immediately to ER Route: ORAL Sig: Take 2 tablets by mouth twice daily. Disc: Reason for discontinue is not on file. predniSONE (DELTASONE) 50 mg tab 2 ta* 1 06/03/2016 12/12/2016 Route: ORAL Sig: Take 1 tablet by mouth as directed. If any hives or rash from Sulfa antibiotics Disc: Course of therapy completed diphenhydrAMINE (BENADRYL) 50 mg cap* 2 ca* 1 06/03/2016 12/12/2016 Route: ORAL Sig: Take 1 capsule by mouth as directed. If any hives or rash from Sulfa antibiotics Disc: Course of therapy completedEncounter Number: [id number] Status:Closed by CELIO ORTEGA MD on 12/12/16 [place] CBC AND DIFF Collected: 09/30/2016 Status: F Source: MOBILE 3:39 PM [facility] REPOSITORY TYPE CODE TESTS RESULT OUT OF REFERENCE UNITS RANGE LAB WWBC 3.70-11.00 k/uL [facility] WBC 6.55 LAB WRBC 3.90-5.20 m/uL [facility] RBC 3.99 LAB WHGB 11.5-15.5 g/dL [place] 12.2 Hemoglobin LAB WHCT 36.0-46.0 % [place] 36.7 Hematocrit LAB WMCV 80.0-100.0 fL [facility] MCV 92.0 LAB WMCH 26.0-34.0 pg [facility] MCH 30.6 LAB WMCHC 30.5-36.0 g/dL [place] MCHC 33.2 LAB WRDW 11.5-15.0 % [place] RDW 13.6 LAB WPLT 150-400 k/uL [place] 280 Platelet Cnt LAB WMPV 9.0-12.7 fL [place] MPV 9.6 Result Comment: Test performed by: [facility], [address] [place] [address]. LAB WNEUT % [facility] Neut% 57.5 LAB WLYMP % [facility] Lymp% 27.8 LAB WMONOC % [facility] [place]% 11.8 LAB WEOS % [facility] Eos% 2.6 LAB WBASO % [place] Baso% 0.3 LAB WANEUT 1.45-7.50 k/uL [place] Abs 3.77 Neut LAB WALYMP 1.00-4.00 k/uL [place] Abs 1.82 Lymp LAB WAMONO 0.00-0.86 k/uL [facility] Abs 0.77 [place] LAB WAEOS 0.00-0.45 k/uL [facility] Abs 0.17 Eos LAB WABASO 0.00-0.10 k/uL [facility] Abs 0.02 Baso BASIC METABOLIC PANL Collected: 09/30/2016 Status: F Source: MOBILE 3:39 PM [facility] REPOSITORY TYPE CODE TESTS RESULT OUT OF REFERENCE UNITS RANGE LAB GLU 74-99 mg/dL Glucose 96 Result Comment: The [place] Diabetes Association (ADA) provides guidance for cutoff values for fasting glucose and random glucose. The ADA defines fasting as no caloric intake for at least 8 hours. Fasting plasma glucose results between 100 to 125 mg/dL indicate increased risk for diabetes (prediabetes).Fasting plasma glucose results greater than or equal to 126 mg/dL meet the criteria for diagnosis of diabetes. In the absence of unequivocal hyperglycemia, results should be confirmed by repeat testing. In a patient with classic symptoms of hyperglycemia or hyperglycemic crisis, random plasma glucose results greater than or equal to 200 mg/dL meet the criteria for diagnosis of diabetes.Reference: Standards of Medical Care in Diabetes 2016 , [place] Diabetes Association. Diabetes Care. 2016.39(Suppl 1). LAB BUN High 7-21 mg/dL BUN 25 LAB CRET High 0.58-0.96 mg/dL Creatinine 1.16 LAB NA 136-144 mmol/L Sodium 140 LAB K Low 3.7-5.1 mmol/L Potassium 3.6 LAB CL 97-105 mmol/L Chloride 99 LAB CO2 22-30 mmol/L CO2 23 LAB AGAP 9-18 mmol/L Anion Gap 18 LAB CA 8.5-10.2 mg/dL Calcium, Total 9.7 LAB GFRAA eGFR- Amer. 54 LAB GFRNAA . eGFR-All Other Races 45 Result Comment: eGFR (Estimated GFR) Units of measure: mL/min/1.73 meters squaredeGFR is derived from the reexpressed MDRD Study equation using the following parameters: serum creatinine, age, gender and race. The creatinine assay has been calibrated to be traceable to IDMS.An eGFR <60 mL/min/1.73m2 for >3 months is consistent with chronic kidney disease. Refer to KDOQI guidelines for clinical interpretation.In patients with unstable renal function, e.g. those with acute kidney injury, the eGFR may not accurately reflect actual GFR. Performed By: #### BMP ####[facility] [address] [place], [place] [phone] PROGRESS Observed: 09/30/2016 Status: COMPLETED Source: MOBILE 2:59 PM [facility] [place] REPOSITORY HNO ID: [id number]: Michelle Nolen (Relief Driller) Jonathan: (none) Author Type: Nurse PractitionerType: Progress NotesFiled: 09/30/2016 3:50 PMNote Text: Chief ComplaintPatient presents with:Pain, BackHPIRita Cristina Looney is a 81 year old female who presents here today for rightlower back ache for about 5 days. Keeps saying I just don't feel right.No known injury, although prior to onset, she admits she has been workingin the garden, bending over pulling weeds. Describes as ache, does radiatearound to the front, rubbing both sides lower abdomen. Also reports she' shad loose stools for one week. Describes as watery. Up to 6/day initially,now once/ day. Denies any nausea or vomiting, no abdominal pain. Againstates I just don't feel good. Continues to eat. Denies weakness,numbness or tingling or radicular pain down her legs. States she isusually full of pep and go.Colonoscopy-2010, normal/clear.The ROS is otherwise negative.Past medical history, appointments, medications, allergies reviewed.Patient AllergiesALLERGIESAllergen Reactions- Demerol [Meperidine* Other: See Comments knocked me for a loop- Influenza Vac Typ A* - Penicillins- Sulfa (Sulfonamide * Other: See Comments pharmacist has sulfa as allergy 05/27/2016Current MedicationsCurrent Outpatient Prescriptions on File Prior to Visit:triamterene-hydrochlorothiazide 37.5-25 mg per capsule Take 1 capsule bymouth once daily.metoprolol succinate ER (TOPROL XL) 50 mg 24 hr tablet 1 tablet by mouthin the morning and 1/2 tablet in the evening, total of 75 mg daily.amLODIPine ( NORVASC) 5 mg tablet Take 1 tablet by mouth once daily.atorvastatin (LIPITOR) 10 mg tablet Take 1 tablet by mouth once daily.sulfamethoxazole-trimethoprim (BACTRIM) 400- 80 mg per tablet Take 2tablets by mouth twice daily.predniSONE (DELTASONE) 50 mg tab Take 1 tablet by mouth as directed. Ifany hives or rash from Sulfa antibioticsdiphenhydrAMINE (BENADRYL) 50 mg capsule Take 1 capsule by mouth asdirected. If any hives or rash from Sulfa antibioticspotassium chloride ER (K -DUR, KLOR-CON) 20 mEq tablet Take 1 tablet bymouth once daily.Cholecalciferol, Vitamin D3, 2,000 unit cap Take 1 tablet by mouth oncedaily.calcium, elemental, Tab Take 1 tablet by mouth twice daily.Aspirin 81 mg ORAL CpDR Take by mouth once daily.No current facility-administered medications on file prior to visit.Previous Medical HistoryPAST MEDICAL HISTORYDiagnosis Date- Anemia, unspecified- Bundle branch block, unspecified left- Osteoporosis, unspecified- Other and unspecified hyperlipidemia- Other symptoms involving digestive system(787.99)- Unspecified hypertensive heart disease without heart failurePrevious Surgical HistoryPAST SURGICAL JZJTAKS42/21/11: COLONOSCOP W/ OR W/O [facility] SPEC3-30-09: LAPAROSCOPY, SURGICAL, APPENDECTOMYFamily HistoryFAMILY HISTORY Cancer Brother Comment: prostate Blood Disease Sister 87Social HistorySocial History Marital status: Spouse name: Years of education: Number of children:Social History Main Topics Smoking status: Never Smoker Smokeless status: Never Used Alcohol use: No Drug use: NoSocial History Narrative 2005. 3 years but were together for years prior. Briefprevious marriage. Brother 2013.EXAM:BP 134/72 (BP Site: Right Arm, BP Position: Sitting, BP Cuff Size: RegularAdult) Pulse 76 Temp 37.3 ?C (99.2 ?F) (Left Tympanic) Resp 16 Wt58.3 kg (128 lb 9.6 oz) BMI 25.12 kg/m2Yupwhcs Appearance: Well appearing, alert, in no acute distress,well-hydrated, well nourished., Not toxic.Oropharynx: Dentures and Lips, mucosa, and tongue normal, teeth and gumsnormal, oropharynx normal.Neck: Supple, no adenopathy; thyroid symmetric, normal size, no bruits.Back:no pain to palpation of vertebrae, good flexion and extension, goodrange of motion, motor and sensory appear to be normal, Able to get up ontip toes, forward flexion normal. + tenderness with hyperextension. +muscle tenderness right lower back.Lungs: Lungs clear to auscultation. No wheezing, rhonchi, rales.Heart: RRR without murmur, gallop, or rubs. No ectopy.Abdomen: Normal abdominal exam, Abdomen soft, non-tender. Bowel soundsnormal. No masses, organomegaly, Negative CVA tenderness.Neurologic: Gait normal. Reflexes normal and symmetric. Sensation grosslyintact..Component Latest Ref Rng AND Units 09/30/2016Glucose, Urine Neg mg/dL NegBilirubin, Urine Neg NegKetones, Urine Neg NegSpecific [place], Ur 1.005 - 1.030 1.010Hemoglobin/Blood,Ur Neg Non-Hemo TrpH, Urine 4.5 - 8.0 6.5Protein, Urine Neg mg/dL NegUrobilinogen, Urine Normal (<1.1) EU NormalNitrites Neg NegLeukocytes Neg NegColor/Appearance comment: Faint yellow-clearQuality Check yes/no YesASSESSMENT/PLAN:1. Acute right-sided low back pain without sciatica - ICD9: 724.2, ICD10:M54.5 (primary diagnosis)Mechanical low back pain- Warm moist heat for 20 min three times a day, tylenol as needed- UA DIP B/O- [facility] CBC AND DIFF- BASIC METABOLIC PNL2. Diarrhea, unspecified - ICD9: 787.91, ICD10: R19.7- Recommend BRAT diet , will check stat CBC.Will have telephone contact with patient early next week.- [facility] CBC AND DIFF- BASIC METABOLIC PNLMichelle Dunham MSN TRAFFIC SIGN SUPERVISOR CNOV Observed: 09/30/2016 Status: COMPLETED Source: MOBILE 2:40 PM [facility] REPOSITORY Office Visit (FAMPWS) ---------TALA LOONEY ([id number]) 1935 FDate Time Provider Department09/30/16 2:40 PM MICHELLE DUNHAM (SALES RECRUITER) FAMPWS During your visit today, we recorded the following information about you: Temperature Pulse Respiration Blood pressure 99.2 degrees 76/minute 16/minute 134/72 Weight 58.3 kgKelJENNIFER Lopez TRAFFIC SIGN SUPERVISOR 09/30/2016 3:50 PM SignedChief ComplaintPatient presents with:Pain, BackHPIRita B Aayush is a 81 year old female who presents here today for right lowerback ache for about 5 days. Keeps saying ANDquot;I just don't feel rightANDquot;.No known injury, although prior to onset, she admits she has been working [place], [place] over pulling weeds. Describes as ache, does radiate aroundto the front, rubbing both sides lower abdomen. Also reports she's had loosestools for one week. Describes as watery. Up to 6/day initially, now once/day.Denies any nausea or vomiting, no abdominal pain. Again states ANDquot;I justdon't feel goodANDquot;. Continues to eat. Denies weakness, numbness or tinglingor radicular pain down her legs. States she is usually full of ANDquot;pep andgoANDquot;.Colonoscopy-2010, normal/clear.The ROS is otherwise negative.Past medical history, appointments, medications, allergies reviewed.Patient AllergiesALLERGIESAllergen Reactions- Demerol [Meperidine* Other: See Comments ANDquot;knocked me for a loopANDquot; - Influenza Vac Typ A*- Penicillins- Sulfa (Sulfonamide * Other: See Comments pharmacist has sulfa as allergy 05/27/2016Current MedicationsCurrent Outpatient Prescriptions on File Prior to Visit:triamterene-hydrochlorothiazide 37.5-25 mg per capsule Take 1 capsule by mouthonce daily.metoprolol succinate ER (TOPROL XL) 50 mg 24 hr tablet 1 tablet by mouth inthe morning and 1/2 tablet in the evening, total of 75 mg daily.amLODIPine (NORVASC) 5 mg tablet Take 1 tablet by mouth once daily.atorvastatin (LIPITOR) 10 mg tablet Take 1 tablet by mouth once daily.sulfamethoxazole-trimethoprim (BACTRIM) 400-80 mg per tablet Take 2 tablets bymouth twice daily.predniSONE (DELTASONE) 50 mg tab Take 1 tablet by mouth as directed. If anyhives or rash from Sulfa antibioticsdiphenhydrAMINE (BENADRYL) 50 mg capsule Take 1 capsule by mouth as directed.If any hives or rash from Sulfa antibioticspotassium chloride ER (K-DUR, KLOR-CON) 20 mEq tablet Take 1 tablet by mouthonce daily.Cholecalciferol, Vitamin D3, 2,000 unit cap Take 1 tablet by mouth once daily.calcium, elemental, Tab Take 1 tablet by mouth twice daily.Aspirin 81 mg ORAL CpDR Take by mouth once daily.No current facility-administered medications on file prior to visit.Previous Medical HistoryPAST MEDICAL HISTORYDiagnosis Date- Anemia, unspecified- Bundle branch block, unspecified left- Osteoporosis, unspecified- Other and unspecified hyperlipidemia- Other symptoms involving digestive system(787.99)- Unspecified hypertensive heart disease without heart failurePrevious Surgical HistoryPAST SURGICAL ZAXJOVV22/21/11: COLONOSCOP W/ OR W/O [facility] SPEC3-30-: LAPAROSCOPY, SURGICAL, APPENDECTOMYFamily HistoryFAMILY HISTORY Cancer Brother Comment: prostate Blood Disease Sister 87Social HistorySocial History Marital status: Spouse name : Years of education: Number of children:Social History Main Topics Smoking status: Never Smoker Smokeless status: Never Used Alcohol use: No Drug use: NoSocial History Narrative 2005. 3 years but were together for years prior. Briefprevious marriage. Brother 2013.EXAM:BP 134/72 (BP Site: Right Arm, BP Position: Sitting, BP Cuff Size: RegularAdult) Pulse 76 Temp 37.3 ?C (99.2 ?F) (Left Tympanic) Resp 16 Wt 58.3kg (128 lb 9.6 oz) BMI 25.12 kg/q5Bmoessq Appearance: Well appearing, alert, in no acute distress, well-hydrated,well nourished., Not toxic.Oropharynx: Dentures and Lips, mucosa, and tongue normal, teeth and gumsnormal, oropharynx normal.Neck: Supple, no adenopathy; thyroid symmetric, normal size, no bruits.Back:no pain to palpation of vertebrae, good flexion and extension, good rangeof motion, motor and sensory appear to be normal, Able to get up on tip toes,forward flexion normal. + tenderness with hyperextension. + muscle tendernessright lower back.Lungs: Lungs clear to auscultation. No wheezing, rhonchi, rales.Heart: RRR without murmur, gallop, or rubs. No ectopy.Abdomen: Normal abdominal exam, Abdomen soft, non-tender. Bowel sounds normal.No masses, organomegaly, Negative CVA tenderness.Neurologic: Gait normal. Reflexes normal and symmetric. Sensation grosslyintact..Component Latest Ref Rng ANDamp; Units 09/30/2016Glucose, Urine Neg mg/dL NegBilirubin, Urine Neg NegKetones, Urine Neg NegSpecific [place], Ur 1.005 - 1.030 1.010Hemoglobin/Blood,Ur Neg Non-Hemo TrpH, Urine 4.5 - 8.0 6.5Protein, Urine Neg mg/dL NegUrobilinogen, Urine Normal (ANDlt;1.1) EU NormalNitrites Neg NegLeukocytes Neg NegColor/Appearance comment: Faint yellow-clearQuality Check yes/no YesASSESSMENT/PLAN:1. Acute right-sided low back pain without sciatica - ICD9: 724.2, ICD10: M54.5(primary diagnosis)Mechanical low back pain- Warm moist heat for 20 min three times a day, tylenol as needed - UA DIP B/O- [facility] CBC AND DIFF- BASIC METABOLIC PNL2. Diarrhea, unspecified - ICD9: 787.91, ICD10: R19.7- Recommend BRAT diet , will check stat CBC.Will have telephone contact with patient early next week.- [facility] CBC AND DIFF- BASIC METABOLIC PNLJENNIFER Hayes MSN TRAFFIC SIGN SUPERVISOR 09/30/2016 3:24 PM Signed1. Recommend that you take Tylenol one tablet every 4-6 hours as needed forback pain.2. Decrease or stop using Flax seed, popcorn for the time being. May use BRATdiet-Bananas, rice, applesauce and toast. YogurtReferring Provider: SELF [[id number]]Allergies As of Date: 09/30/2016 Noted Allergy ReactionDEMEROL (MEPERIDINE (PF)) 09/10/2014 14 - Other: See Comments Comments: knocked me for a loopINFLUENZA VAC TYP A,B SURF ANT 12/28/2004PENICILLINS 12/28/2004SULFA (SULFONAMIDE ANTIBIOTICS) 05/28/2016 14 - Other: See Comments Comments: pharmacist has sulfa as allergy 05/27/2016Date Reviewed: 09/30/2016Reviewed by: Chelly Zhou Ma - Fully AssessedReason for Visit: Pain, Back [855]Primary Visit Diagnosis:Acute right-sided low back pain without sciatica [M54.5] Other Visit Diagnosis:Diarrhea, unspecified [ R19.7]Order(s):UA DIP B/O [[id number]] Order #: [id number] [facility] CBC AND DIFF [SQWCBCDF] Order # : [id number] FUTURE BASIC METABOLIC PNL [SQBMP] Order #: [id number] FUTUREPrescriptions as of 09/30/2016 Sig: TRIAMTERENE 37.5 MG-HYDROCHLO* Take 1 capsule by mouth once * METOPROLOL SUCCINATE ER 50 MG* 1 tablet by mouth in the mor* AMLODIPINE 5 MG TABLET Take 1 tablet by mouth once d* ATORVASTATIN 10 MG TABLET Take 1 tablet by mouth once d* SULFAMETHOXAZOLE 400 MG-TRIME* Take 2 tablets by mouth twice* PREDNISONE 50 MG TABLET Take 1 tablet by mouth as dir* DIPHENHYDRAMINE 50 MG CAPSULE Take 1 capsule by mouth as di* POTASSIUM CHLORIDE ER 20 MEQ * Take 1 tablet by mouth once d* CHOLECALCIFEROL (VITAMIN D3) * Take 1 tablet by mouth once d* CALCIUM 500 MG TABLET Take 1 tablet by mouth twice * ASPIRIN 81 MG CAPSULE ,DELAYED* Take by mouth once daily.Problem List As Of Date 09/30/2016 Noted Resolved Essential hypertension [I10] Mixed hyperlipidemia [E78.2] OSTEOPOROSIS NOS [M81.0] ANEMIA NOS [D64.9] BUNDLE BRANCH BLOCK NOS [I45.4] More... APPENDICITIS ACUTE [K35.80] INVALID FOR*01/19/2009 Hypokalemia [E87.6] INVALID FOR* Change in bowel habits [R19.4] INVALID FOR* Other instructions from your clinician : 1. Recommend that you take Tylenol one tablet every 4-6 hours as needed for back pain. 2. Decrease or stop using Flax seed, popcorn for the time being. May use BRAT diet-Bananas, rice, applesauce and toast. YogurtEncounter Number: [id number] Status:Closed by MICHELLE DUNHAM TRAFFIC SIGN SUPERVISOR on 09/30/16 PROGRESS Observed: 07/10/2016 Status: COMPLETED Source: MOBILE 2:54 PM [facility] RE[facility]IT[facility] HNO ID: [id number]: Carlos Bolivarice: (none) Author Type: PhysicianType: Progress NotesFiled: 07/10/2016 3:15 PMNote Text:Chief ComplaintPatient presents with:F/U 6 monthsHPIRita B Aayush is a 81 year old female who presents here today forfollow-up of BP, osteoporosis, lipid,Patient denies any exertional chest pain, dyspnea, palpitations, syncope,orthopnea, edema or paroxysmal nocturnal dyspnea.generally feeling well.ACTIVE PROBLEM LISTHypertensionMixed HyperlipidemiaOsteoporosis, UnspecifiedAnemia, UnspecifiedBundle Branch Block, UnspecifiedHypokalemiaChange in Bowel HabitsPast medical history, appointments, medications, allergies reviewed.Previous Medical HistoryPAST MEDICAL HISTORYDiagnosis Date- Anemia, unspecified- Bundle branch block, unspecified left- Osteoporosis, unspecified- Other and unspecified hyperlipidemia- Other symptoms involving digestive system- Unspecified hypertensive heart disease without heart failurePrevious Surgical HistoryPAST SURGICAL DVJCZDX85/21/11: COLONOSCOP W/ OR W/O [facility] SPEC3-: LAPAROSCOPY, SURGICAL, APPENDECTOMYFamily HistoryFAMILY HISTORY Cancer Brother Comment: prostate Blood Disease Sister 87Patient AllergiesALLERGIESAllergen Reactions- Demerol [Meperidine* Other: See Comments knocked me for a loop- Influenza Vac Typ A*- Penicillins- Sulfa (Sulfonamide * Other: See Comments pharmacist has sulfa as allergy 05/27/2016Current MedicationsCurrent Outpatient Prescriptions on File Prior to Visit:amLODIPine (NORVASC) 5 mg tablet Take 1 tablet by mouth once daily.atorvastatin (LIPITOR) 10 mg tablet Take 1 tablet by mouth once daily.sulfamethoxazole-trimethoprim (BACTRIM) 400-80 mg per tablet Take 2tablets by mouth twice daily.predniSONE (DELTASONE) 50 mg tab Take 1 tablet by mouth as directed. Ifany hives or rash from Sulfa antibioticsdiphenhydrAMINE (BENADRYL) 50 mg capsule Take 1 capsule by mouth asdirected. If any hives or rash from Sulfa antibioticspotassium chloride ER (K-DUR, KLOR-CON) 20 mEq tablet Take 1 tablet bymouth once daily.triamterene-hydrochlorothiazide 37.5-25 mg per capsule Take 1 capsule bymouth once daily.Cholecalciferol, Vitamin D3, 2,000 unit cap Take 1 tablet by mouth oncedaily.calcium, elemental, Tab Take 1 tablet by mouth twice daily.Aspirin 81 mg ORAL CpDR Take by mouth once daily.No current facility-administered medications on file prior to visit.Social HistorySocial History Marital status : Spouse name: Years of education: Number of children:Social History Main Topics Smoking status: Never Smoker Smokeless status: Never Used Alcohol use: No Drug use: NoSocial History Narrative 2005. 3 years but were together for years prior. Briefprevious marriage. Brother 2013.ROS:General: Feels well, no weight changes, fever, chills.HEENT: No sinus congestion, earache, sore throat.Cardiac: No chest pain, palpitations, shortness of breathResp: No cough, wheeze.GI: No reflux symptoms, food intolerance, bowel changes.: No urinary frequency, dysuria.MS: No pain or joint complaints.PHYSICAL EXAMINATIONBP 130/76 (BP Site: Left Arm, BP Position: Sitting, BP Cuff Size: RegularAdult) Pulse 80 Resp 12 Wt 59.1 kg (130 lb 6.4 oz) BMI 25.47 kg/d9Elfxujk: Alert and oriented, no distress, pleasant and cooperative.Heart: Regular, normal S1 and S2, no murmurs, rubs, or gallopsLungs: Clear to auscultation bilaterallyAbdomen: BenignExtremities: Feet/ankles without edema, posterior tibial pulses full andsymmetricalHealth Maintenance ListZOSTAVAX due on 1996DIABETES SCREEN due on 07/03/2019COLORECTAL CANCER SCREENING,SEE MODIFIER due on 1LIPID SCREEN due on 01/03/2021TETANUS due on 7BONE DENSITY CompletedADULT PREVNAR-13 CompletedPNEUMOVAX AGE 65 AND OVER WITH 5YR LOOKBACK CompletedData reviewedAssessment/Plan:(I10) Essential hypertension (primary encounter diagnosis)Comment:Plan: metoprolol succinate ER (TOPROL XL) 50 mg 24 hr tablet, LIPID PANEL BASIC(R73.9) HyperglycemiaComment:Plan: HGB A1C, BASIC METABOLIC PNL Watch for development of DM, labs prior to December visit.(E78.2) Mixed hyperlipidemiaComment:Plan: LIPID PANEL BASICSigned Prescriptions Disp Refills metoprolol succinate ER (TOPROL XL) 50 mg 24 hr tablet 135 tablet 3 Si tablet by mouth in the morning and 1/2 tablet in the evening,total of 75 mg daily. JUSTICE: NoRTO: 6 Carissa Ortega MD CNOV Observed: 07/04/2016 Status: COMPLETED Source: MOBILE 1:40 PM [facility] REPOSITORY Office Visit (FAMPWS) ---------TALA LOONEY ([id number]) 1935 FDate Time Provider Department07/04/16 1:40 PM CARLOS ORTEGA FAMPWS During your visit today, we recorded the following information about you: Pulse Respiration Blood pressure Weight 80/minute 12/minute 130/76 59.1 kgCarlos Ortega MD 07/10/2016 3:15 PM SignedChief ComplaintPatient presents with:F/U 6 monthsHPRonna Winklera is a 81 year old female who presents here today for follow-upof BP, osteoporosis, lipid ,Patient denies any exertional chest pain, dyspnea, palpitations, syncope,orthopnea, edema or paroxysmal nocturnal dyspnea.generally feeling well.ACTIVE PROBLEM LISTHypertensionMixed HyperlipidemiaOsteoporosis, UnspecifiedAnemia, UnspecifiedBundle Branch Block, UnspecifiedHypokalemiaChange in Bowel HabitsPast medical history, appointments, medications, allergies reviewed.Previous Medical HistoryPAST MEDICAL HISTORYDiagnosis Date- Anemia, unspecified- Bundle branch block, unspecified left- Osteoporosis, unspecified- Other and unspecified hyperlipidemia- Other symptoms involving digestive system- Unspecified hypertensive heart disease without heart failurePrevious Surgical HistoryPAST SURGICAL ZPHFAGC88/21/11: COLONOSCOP W/ OR W/O [facility] SPEC3: LAPAROSCOPY, SURGICAL, APPENDECTOMYFamily HistoryFAMILY HISTORY Cancer Brother Comment: prostate Blood Disease Sister 87Patient AllergiesALLERGIESAllergen Reactions- Demerol [Meperidine* Other: See Comments ANDquot;knocked me for a loopANDquot;- Influenza Vac Typ A*- Penicillins- Sulfa (Sulfonamide * Other: See Comments pharmacist has sulfa as allergy 05/27/2016Current MedicationsCurrent Outpatient Prescriptions on File Prior to Visit:amLODIPine (NORVASC) 5 mg tablet Take 1 tablet by mouth once daily.atorvastatin (LIPITOR) 10 mg tablet Take 1 tablet by mouth once daily.sulfamethoxazole- trimethoprim (BACTRIM) 400-80 mg per tablet Take 2 tablets bymouth twice daily.predniSONE (DELTASONE) 50 mg tab Take 1 tablet by mouth as directed. If anyhives or rash from Sulfa antibioticsdiphenhydrAMINE (BENADRYL) 50 mg capsule Take 1 capsule by mouth as directed.If any hives or rash from Sulfa antibioticspotassium chloride ER (K-DUR, KLOR-CON) 20 mEq tablet Take 1 tablet by mouthonce daily.triamterene-hydrochlorothiazide 37.5-25 mg per capsule Take 1 capsule by mouthonce daily.Cholecalciferol, Vitamin D3, 2,000 unit cap Take 1 tablet by mouth once daily.calcium, elemental, Tab Take 1 tablet by mouth twice daily.Aspirin 81 mg ORAL CpDR Take by mouth once daily.No current facility-administered medications on file prior to visit.Social HistorySocial History Marital status: Spouse name: Years of education: Number of children:Social History Main Topics Smoking status: Never Smoker Smokeless status: Never Used Alcohol use: No Drug use: NoSocial History Narrative 2005. 3 years but were together for years prior. Briefprevious marriage. Brother 2013.ROS :General: Feels well, no weight changes, fever, chills.HEENT: No sinus congestion, earache, sore throat.Cardiac: No chest pain, palpitations, shortness of breathResp: No cough, wheeze.GI: No reflux symptoms, food intolerance, bowel changes.: No urinary frequency, dysuria.MS: No pain or joint complaints.PHYSICAL EXAMINATIONBP 130/76 (BP Site: Left Arm, BP Position: Sitting, BP Cuff Size: RegularAdult) Pulse 80 Resp 12 Wt 59.1 kg (130 lb 6.4 oz) BMI 25.47 kg/ h0Smshvsf: Alert and oriented, no distress, pleasant and cooperative.Heart: Regular, normal S1 and S2, no murmurs, rubs, or gallopsLungs: Clear to auscultation bilaterallyAbdomen: BenignExtremities : Feet/ankles without edema, posterior tibial pulses full andsymmetricalHealth Maintenance ListZOSTAVAX due on 1996DIABETES SCREEN due on 07/03/2019COLORECTAL CANCER SCREENING,SEE MODIFIER due on 1LIPID SCREEN due on 01/03/2021TETANUS due on 7BONE DENSITY CompletedADULT PREVNAR-13 CompletedPNEUMOVAX AGE 65 AND OVER WITH 5YR LOOKBACK CompletedData reviewedAssessment/Plan:(I10) Essential hypertension (primary encounter diagnosis)Comment:Plan: metoprolol succinate ER (TOPROL XL) 50 mg 24 hr tablet, LIPID PANEL BASIC( R73.9) HyperglycemiaComment:Plan: HGB A1C, BASIC METABOLIC PNL Watch for development of DM, labs prior to December visit.(E78.2) Mixed hyperlipidemiaComment:Plan: LIPID PANEL BASICSigned Prescriptions Disp Refills metoprolol succinate ER (TOPROL XL) 50 mg 24 hr tablet 135 tablet 3 Si tablet by mouth in the morning and 1/2 tablet in the evening, totalof 75 mg daily. JUSTICE: NoRTO : 6 Kip Jara Provider: CARLOS ORTEGA [[id number]]Allergies As of Date: 2016 Noted Allergy ReactionDEMEROL (MEPERIDINE (PF)) 09/10/2014 14 - Other: See Comments Comments: knocked me for a loopINFLUENZA VAC TYP A,B SURF ANT 12/28/2004PENICILLINS 12/28/2004SULFA (SULFONAMIDE ANTIBIOTICS) 05/28/2016 14 - Other: See Comments Comments: pharmacist has sulfa as allergy 05/27/2016Date Reviewed: 07/04/2016Reviewed by: Chelly Zhou Ma - Fully AssessedReason for Visit: F/U 6 months [1177]Primary Visit Diagnosis: Essential hypertension [I10] Other Visit Diagnoses:Hyperglycemia [R73.9] Mixed hyperlipidemia [E78.2]Order(s):metoprolol succinate ER (TOPROL XL) 50 mg 24 hr tablet1 tablet by mouth in the morning and 1/2 tablet in the evening, total of 75 mg daily.Disp: 135 tabletRfl: 3 HGB A1C [[id number]] Order #: [id number] FUTURE BASIC METABOLIC PNL [SQBMP ] Order #: [id number] FUTURE LIPID PANEL BASIC [SQLIPB] Order #: [id number] FUTUREPrescriptions as of 07/04/2016 Sig: METOPROLOL SUCCINATE ER 50 MG* 1 tablet by mouth in the mor* AMLODIPINE 5 MG TABLET Take 1 tablet by mouth once d* ATORVASTATIN 10 MG TABLET Take 1 tablet by mouth once d* SULFAMETHOXAZOLE 400 MG-TRIME* Take 2 tablets by mouth twice* PREDNISONE 50 MG TABLET Take 1 tablet by mouth as dir* DIPHENHYDRAMINE 50 MG CAPSULE Take 1 capsule by mouth as di* POTASSIUM CHLORIDE ER 20 MEQ * Take 1 tablet by mouth once d* TRIAMTERENE 37.5 MG-HYDROCHLO* Take 1 capsule by mouth once * CHOLECALCIFEROL (VITAMIN D3) * Take 1 tablet by mouth once d* CALCIUM 500 MG TABLET Take 1 tablet by mouth twice * ASPIRIN 81 MG CAPSULE ,DELAYED* Take by mouth once daily.Problem List As Of Date 07/04/2016 Noted Resolved Hypertension [I10] Mixed hyperlipidemia [E78.2] OSTEOPOROSIS NOS [M81.0] ANEMIA NOS [ D64.9] BUNDLE BRANCH BLOCK NOS [I45.4] More... APPENDICITIS ACUTE [K35.80] INVALID FOR*01/19/2009 Hypokalemia [E87.6] INVALID FOR* Change in bowel habits [R19.4] INVALID FOR*Prescriptions ordered this encounter Disp Refills Start End METOPROLOL SUCCINATE ER 50 MG TABLET* 135 * 3 07/04/2016 Si tablet by mouth in the morning and 1/2 tablet in the evening, total of 75 mg daily.Medications Discontinued During This Encounter metoprolol succinate ER (TOPROL XL) * 135 * 3 07/02/2015 07/04/2016 Si tablet by mouth in the morning and 1/2 tablet in the evening, total of 75 mg daily. Disc: Reason for discontinue is not on file. Status:Closed by CELIO ORTEGA MD on 07/10/16 CNCO Observed: 07/04/2016 Status: COMPLETED Source: MOBILE 12:00 AM [facility] REPOSITORY Letter Laura Ortega M.D.[address] [place], [place] [id number]: Ri Cristina Gvtgobop[address] [facility] [place] [address]Aylgwu #: [id number] Ms. Looney, I have received the results of your recent tests.Sugar and kidney function, electrolytes unchanged. No new orders.Please do not hesitate to contact me with any questions.Sincerely,Carlos Ortega M.D.electronically signed to expedite mailing BASIC METABOLIC PANL Collected: 07/02/2016 Status: F Source: MOBILE 9:37 AM [facility] REPOSITORY TYPE CODE TESTS RESULT OUT OF REFERENCE UNITS RANGE LAB GLU High 74-99 mg/dL Glucose 104 Result Comment: The [place] Diabetes Association (ADA) provides guidance for cutoff values for fasting glucose and random glucose. The ADA defines fasting as no caloric intake for at least 8 hours. Fasting plasma glucose results between 100 to 125 mg/dL indicate increased risk for diabetes (prediabetes).Fasting plasma glucose results greater than or equal to 126 mg/dL meet the criteria for diagnosis of diabetes. In the absence of unequivocal hyperglycemia, results should be confirmed by repeat testing. In a patient with classic symptoms of hyperglycemia or hyperglycemic crisis, random plasma glucose results greater than or equal to 200 mg/dL meet the criteria for diagnosis of diabetes.Reference: Standards of Medical Care in Diabetes 2016 , [place] Diabetes Association. Diabetes Care. 2016.39(Suppl 1). LAB BUN 7-21 mg/dL BUN 21 LAB CRET High 0.58-0.96 mg/dL Creatinine 1.16 LAB NA 136-144 mmol/L Sodium 140 LAB K 3.7-5.1 mmol/L Potassium 4.0 LAB CL 97-105 mmol/L Chloride 99 LAB CO2 22-30 mmol/L CO2 26 LAB AGAP 9-18 mmol/L Anion Gap 15 LAB CA 8.5-10.2 mg/dL Calcium, Total 9.5 LAB GFRAA eGFR- Amer. 54 LAB GFRNAA . eGFR-All Other Races 45 Result Comment: eGFR (Estimated GFR) Units of measure: mL/min/1.73 meters squaredeGFR is derived from the reexpressed MDRD Study equation using the following parameters: serum creatinine, age, gender and race. The creatinine assay has been calibrated to be traceable to IDMS.An eGFR <60 mL/min/1.73m2 for >3 months is consistent with chronic kidney disease. Refer to KDOQI guidelines for clinical interpretation.In patients with unstable renal function, e.g. those with acute kidney injury, the eGFR may not accurately reflect actual GFR. Performed By: #### BMP ####[facility] [place], [place] [phone] OBSOLETE Observed: 06/28/2016 Status: COMPLETED Source: MOBILE 12:00 AM [facility] REPOSITORY Refill (FAMPWS) ---------TALA LOONEY ([id number]) 1935 FDate Time Provider Department06/28/16 CARLOS ORTEGA During your visit today, we recorded the following information about you:Marga Moreira Psr 06/28/2016 10 :13 AM SignedPatient has been identified by name and date of : YesRX INSTRUCTIONS: Patient is completely out of this medication and needs thisprescription sent to her pharmacy today (06/28/2016) as soon as possible!Patient aware RX will be sent to pharmacy. No need to notify patient. Anyquestions/problems, call patient at [phone].Marga Moreira Josefina Hannon PharmD 2016 10:23 AM SignedPharmacist Refill Authorization ReviewName: Tala Cristina NolanRN: [id number]: 06/28/2016Time: 10:23 AMRefill authorization request(s) received via patient request and reviewed undereffective consult agreement. Upon review, did confirm that an activepatient-provider relationship exists and that the prescriber is a participatingphysician under the consult agreement.The medication(s) fall under the following categories:Category 1: 1 corresponding medication(s) qualifies for renewal due to up todate labs and provider visits.Additional actions taken: Prescription(s) issued.Lashon AdmaeDPharmacy Managed Authorization CenterPhone Current Outpatient Prescriptions:amLODIPine (NORVASC) 5 mg tablet Take 1 tablet by mouth once daily.atorvastatin (LIPITOR) 10 mg tablet Take 1 tablet by mouth once daily.sulfamethoxazole- trimethoprim (BACTRIM) 400-80 mg per tablet Take 2 tablets bymouth twice daily.predniSONE (DELTASONE) 50 mg tab Take 1 tablet by mouth as directed. If anyhives or rash from Sulfa antibioticsdiphenhydrAMINE (BENADRYL) 50 mg capsule Take 1 capsule by mouth as directed.If any hives or rash from Sulfa antibioticspotassium chloride ER (K-DUR, KLOR-CON) 20 mEq tablet Take 1 tablet by mouthonce daily.triamterene-hydrochlorothiazide 37.5-25 mg per capsule Take 1 capsule by mouthonce daily.metoprolol succinate ER (TOPROL XL) 50 mg 24 hr tablet 1 tablet by mouth inthe morning and 1/2 tablet in the evening, total of 75 mg daily.Cholecalciferol, Vitamin D3, 2,000 unit cap Take 1 tablet by mouth once daily.calcium, elemental, Tab Take 1 tablet by mouth twice daily.Aspirin 81 mg ORAL CpDR Take by mouth once daily.No current facility-administered medications for this visit.Allergies As of Date: 06/28/2016 Noted Allergy ReactionDEMEROL (MEPERIDINE (PF)) 09/10/2014 14 - Other: See Comments Comments: knocked me for a loopINFLUENZA VAC TYP A, B SURF ANT 12/28/2004PENICILLINS 12/28/2004SULFA (SULFONAMIDE ANTIBIOTICS) 05/28/2016 14 - Other: See Comments Comments: pharmacist has sulfa as allergy 2016Date Reviewed: 06/03/2016Reviewed by: Sirena Sebastian Ma - Fully AssessedReason for Visit: Refill Request [94]Order(s):amLODIPine (NORVASC) 5 mg tabletTake 1 tablet by mouth once daily.Disp: 90 tabletRfl: 3Prescriptions as of 06/28/2016 Sig: AMLODIPINE 5 MG TABLET Take 1 tablet by mouth once d* ATORVASTATIN 10 MG TABLET Take 1 tablet by mouth once d* SULFAMETHOXAZOLE 400 MG-TRIME* Take 2 tablets by mouth twice* PREDNISONE 50 MG TABLET Take 1 tablet by mouth as dir* DIPHENHYDRAMINE 50 MG CAPSULE Take 1 capsule by mouth as di * POTASSIUM CHLORIDE ER 20 MEQ * Take 1 tablet by mouth once d* TRIAMTERENE 37.5 MG-HYDROCHLO* Take 1 capsule by mouth once * METOPROLOL SUCCINATE ER 50 MG* 1 tablet by mouth in the mor* CHOLECALCIFEROL (VITAMIN D3) * Take 1 tablet by mouth once d* CALCIUM 500 MG TABLET Take 1 tablet by mouth twice * ASPIRIN 81 MG CAPSULE,DELAYED* Take by mouth once daily.Problem List As Of Date 06/28/2016 Noted Resolved Hypertension [I10] Mixed hyperlipidemia [E78.2 ] OSTEOPOROSIS NOS [M81.0] ANEMIA NOS [D64.9] BUNDLE BRANCH BLOCK NOS [I45.4] More... APPENDICITIS ACUTE [K35.80] INVALID FOR*01/19/2009 Hypokalemia [E87.6] INVALID FOR* Change in bowel habits [R19.4] INVALID FOR*Prescriptions ordered this encounter Disp Refills Start End AMLODIPINE 5 MG TABLET 90 t* 3 06/28/2016 Route: ORAL Sig: Take 1 tablet by mouth once daily.Medications Discontinued During This Encounter amLODIPine (NORVASC) 5 mg tablet 90 t* 3 07/02/2015 06/28/2016 Route: ORAL Sig: Take 1 tablet by mouth once daily. Disc: Reason for discontinue is not on file. Status:Closed by RATNA (PHARMACIST)ARMAND on 06/28/16 Observed: 06/27/2016 Status: F Source: MOBILE URINE CULTURE 9:35 AM [facility] REPOSITORY Sp. Request/Comment: - Specimen received in preservativeCulture Result - <10,000 CFU/ml Lactose positive gram negative bacilli --> ABNORMAL ALERT Insignificant colony count. No further workup. --> ABNORMAL ALERT Performed By: #### URCUL ####[facility] [place] [facility] [address] [place], [place] [phone] OBSOLETE Observed: 06/14/2016 Status: COMPLETED Source: MOBILE 12:00 AM [facility] REPOSITORY Refill (FAMPWS) ---------TALA LOONEY ([id number]) 1935 [facility] Time Provider Department06/14/16 CARLOS ORTEGA FAMPWS During your visit today, we recorded the following information about you:ADELE Nance, [facility] [place] 9:18 AM SignedPatient has been identified by name and date of : YesRX INSTRUCTIONS :Patient aware RX will be sent to pharmacy. No need to notify patient.Charlotte Jones Pharm-T 06/14/2016 1:29 PM SignedPharmacist Refill Authorization ReviewName: Tala NolanRN: [id number]: 06/14/2016Time: 1:27 PMRefill authorization request(s) received via patient request and reviewed undereffective consult agreement. Upon review, did confirm that an activepatient-provider relationship exists and that the prescriber is a participatingphysician under the consult agreement.The medication(s) fall under the following categories:Category 3: 1 corresponding medication(s) does not qualify for renewal due toValid prescription still active at pharmacy. Sent 06/09/16 for 90 days with 3refills/spoke to Fany at pharmacyAdditional actions taken: Contacted pharmacy to discuss.Ignacia Jones Pharm-TPharmacy Managed Authorization CenterPhone Current Outpatient Prescriptions:atorvastatin (LIPITOR) 10 mg tablet Take 1 tablet by mouth once daily.sulfamethoxazole-trimethoprim (BACTRIM) 400-80 mg per tablet Take 2 tablets bymouth twice daily.predniSONE (DELTASONE) 50 mg tab Take 1 tablet by mouth as directed. If anyhives or rash from Sulfa antibioticsdiphenhydrAMINE (BENADRYL) 50 mg capsule Take 1 capsule by mouth as directed.If any hives or rash from Sulfa antibioticspotassium chloride ER (K-DUR, KLOR-CON) 20 mEq tablet Take 1 tablet by mouthonce daily.triamterene-hydrochlorothiazide 37.5-25 mg per capsule Take 1 capsule by mouthonce daily.amLODIPine (NORVASC) 5 mg tablet Take 1 tablet by mouth once daily.metoprolol succinate ER (TOPROL XL) 50 mg 24 hr tablet 1 tablet by mouth inthe morning and 1/2 tablet in the evening, total of 75 mg daily.Cholecalciferol, Vitamin D3, 2,000 unit cap Take 1 tablet by mouth once daily.calcium, elemental, Tab Take 1 tablet by mouth twice daily.Aspirin 81 mg ORAL CpDR Take by mouth once daily.No current facility-administered medications for this visit.Allergies As of Date: 06/14/2016 Noted Allergy ReactionDEMEROL (MEPERIDINE (PF)) 09/10 14 - Other: See Comments Comments: knocked me for a loopINFLUENZA VAC TYP A,B SURF ANT 12/28/2004PENICILLINS 12/28/2004SULFA (SULFONAMIDE ANTIBIOTICS) 05/28/2016 14 - Other: See Comments Comments: pharmacist has sulfa as allergy 05/27/2016Date Reviewed: 2016Reviewed by: Sirena Sebastian Ma - Fully AssessedReason for Visit: Refill Request [94]Prescriptions as of 06/14/2016 Sig: ATORVASTATIN 10 MG TABLET Take 1 tablet by mouth once d* SULFAMETHOXAZOLE 400 MG-TRIME* Take 2 tablets by mouth twice* PREDNISONE 50 MG TABLET Take 1 tablet by mouth as dir* DIPHENHYDRAMINE 50 MG CAPSULE Take 1 capsule by mouth as di* POTASSIUM CHLORIDE ER 20 MEQ * Take 1 tablet by mouth once d* TRIAMTERENE 37.5 MG-HYDROCHLO* Take 1 capsule by mouth once * AMLODIPINE 5 MG TABLET Take 1 tablet by mouth once d* METOPROLOL SUCCINATE ER 50 MG* 1 tablet by mouth in the mor* CHOLECALCIFEROL (VITAMIN D3) * Take 1 tablet by mouth once d* CALCIUM 500 MG TABLET Take 1 tablet by mouth twice * ASPIRIN 81 MG CAPSULE,DELAYED* Take by mouth once daily.Problem List As Of Date 06/14/2016 Noted Resolved Hypertension [I10] Mixed hyperlipidemia [E78.2] OSTEOPOROSIS NOS [M81.0] ANEMIA NOS [D64.9] BUNDLE BRANCH BLOCK NOS [I45.4] More... APPENDICITIS ACUTE [K35.80] INVALID FOR*01/19/2009 Hypokalemia [E87.6] INVALID FOR* Change in bowel habits [R19.4] INVALID FOR* Status:Closed by ADONAY MEZATIGNACIA on 06/14/16 OBSOLETE Observed: 06/09/2016 Status: COMPLETED Source: JAVI 12:00 AM [facility] REPOSITORY Refill (FAMPWS) ---------TALA LOONEY ([id number]) 1935 FDate Time Provider Department06/09/16 CLAUDIO SOLARES During your visit today, we recorded the following information about you:Kanwal Mcallister PharmD 06/09/2016 3 :32 PM SignedPharmacist Refill Authorization ReviewName: Tala NolanRN: [id number]: 06/09/2016Time: 3:32 PMRefill authorization request(s) received via pharmacy request and reviewedunder effective consult agreement. Upon review, did confirm that an activepatient-provider relationship exists and that the prescriber is a participatingphysician under the consult agreement.The medication(s) fall under the following categories:Category 1: 1 corresponding medication(s) qualifies for renewal due to up todate labs and provider visits.Additional actions taken: Prescription(s) issued.Evert Restrepoharhayden Managed Authorization CenterPhone Current Outpatient Prescriptions:sulfamethoxazole-trimethoprim (BACTRIM) 400-80 mg per tablet Take 2 tablets bymouth twice daily.predniSONE (DELTASONE) 50 mg tab Take 1 tablet by mouth as directed. If anyhives or rash from Sulfa antibioticsdiphenhydrAMINE (BENADRYL) 50 mg capsule Take 1 capsule by mouth as directed.If any hives or rash from Sulfa antibioticspotassium chloride ER (K-DUR, KLOR-CON ) 20 mEq tablet Take 1 tablet by mouthonce daily.triamterene-hydrochlorothiazide 37.5-25 mg per capsule Take 1 capsule by mouthonce daily.amLODIPine (NORVASC) 5 mg tablet Take 1 tablet by mouth once daily.metoprolol succinate ER (TOPROL XL) 50 mg 24 hr tablet 1 tablet by mouth inthe morning and 1/2 tablet in the evening, total of 75 mg daily.atorvastatin (LIPITOR) 10 mg tablet Take 1 tablet by mouth once daily.Cholecalciferol, Vitamin D3, 2,000 unit cap Take 1 tablet by mouth once daily.calcium, elemental, Tab Take 1 tablet by mouth twice daily.Aspirin 81 mg ORAL CpDR Take by mouth once daily.No current facility-administered medications for this visit.Allergies As of Date: 06/09/2016 Noted Allergy ReactionDEMEROL (MEPERIDINE (PF)) 09/10/2014 14 - Other: See Comments Comments: knocked me for a loopINFLUENZA VAC TYP A,B SURF ANT 12/28/2004PENICILLINS 12/28/2004SULFA (SULFONAMIDE ANTIBIOTICS) 05/28/2016 14 - Other: See Comments Comments: pharmacist has sulfa as allergy 05/27/2016Date Reviewed: 06/03/2016Reviewed by: Sirena Sebastian Ma - Fully AssessedReason for Visit: Refill Request [94]Order(s):atorvastatin (LIPITOR) 10 mg tabletTake 1 tablet by mouth once daily.Disp: 90 tabletRfl: 3Prescriptions as of 08/2016 Sig: ATORVASTATIN 10 MG TABLET Take 1 tablet by mouth once d* SULFAMETHOXAZOLE 400 MG-TRIME* Take 2 tablets by mouth twice* PREDNISONE 50 MG TABLET Take 1 tablet by mouth as dir* DIPHENHYDRAMINE 50 MG CAPSULE Take 1 capsule by mouth as di* POTASSIUM CHLORIDE ER 20 MEQ * Take 1 tablet by mouth once d* TRIAMTERENE 37.5 MG-HYDROCHLO* Take 1 capsule by mouth once * AMLODIPINE 5 MG TABLET Take 1 tablet by mouth once d* METOPROLOL SUCCINATE ER 50 MG* 1 tablet by mouth in the mor* CHOLECALCIFEROL (VITAMIN D3) * Take 1 tablet by mouth once d* CALCIUM 500 MG TABLET Take 1 tablet by mouth twice * ASPIRIN 81 MG CAPSULE,DELAYED* Take by mouth once daily.Problem List As Of Date 06/09/2016 Noted Resolved Hypertension [I10] Mixed hyperlipidemia [E78.2] OSTEOPOROSIS NOS [M81.0] ANEMIA NOS [D64.9] BUNDLE BRANCH BLOCK NOS [I45.4] More... APPENDICITIS ACUTE [K35.80] INVALID FOR*01/19/2009 Hypokalemia [E87.6] INVALID FOR* Change in bowel habits [R19.4] INVALID FOR*Prescriptions ordered this encounter Disp Refills Start End ATORVASTATIN 10 MG TABLET 90 t* 3 06/09/2016 Route: ORAL Sig: Take 1 tablet by mouth once daily.Medications Discontinued During This Encounter atorvastatin (LIPITOR) 10 mg tablet 30 t* 11 04/20/2015 06/09/2016 Route: ORAL Sig: Take 1 tablet by mouth once daily. Disc: Reason for discontinue is not on file. Status:Closed by SHAWN (PHARMACIST)KANWAL on 06/09/16 PROGRESS Observed: 06/03/2016 Status: COMPLETED Source: MOBILE 6:34 PM [facility] [place] REPOSITORY HNO ID: [id number]: Gretchen Vela (Pa): (none )Author Type: Physician AssistantType: Progress NotesFiled: 06/03/2016 6:41 PMNote Text :[facility] InstitutePATIENT INFO:Tala Escamilla M.D.: Self HISTORY CHIEF COMPLAINT: UTIHPAustin is a 80 year old female who is her for evaluation of Urinary TractInfection with multiple antibiotic resistantE Coli , with LUTS urgency, dysuriaCurrent TxCiprofloxin 250 mgPrevious TXNonePrevious StudiesCreatinineDate Value Ref Range Mrpept2205/23 1.17 (H) 0.58 - 0.96 mg/dL Final GUROS: ======Force of Stream: GoodUrgency: YesDysuria: YesUTI Hx: Yes E Colisulfamethoxazole- trimethoprim (BACTRIM) 400-80 mg per tablet Take 2tablets by mouth twice daily.predniSONE ( DELTASONE) 50 mg tab Take 1 tablet by mouth as directed. Ifany hives or rash from Sulfa antibioticsdiphenhydrAMINE (BENADRYL) 50 mg capsule Take 1 capsule by mouth asdirected. If any hives or rash from Sulfa antibioticspotassium chloride ER (K-DUR, KLOR-CON ) 20 mEq tablet Take 1 tablet bymouth once daily.triamterene-hydrochlorothiazide 37.5- 25 mg per capsule Take 1 capsule bymouth once daily.amLODIPine (NORVASC) 5 mg tablet Take 1 tablet by mouth once daily.metoprolol succinate ER (TOPROL XL) 50 mg 24 hr tablet 1 tablet by mouthin the morning and 1/2 tablet in the evening, total of 75 mg daily.atorvastatin ( LIPITOR) 10 mg tablet Take 1 tablet by mouth once daily.Cholecalciferol, Vitamin D3, 2,000 unit cap Take 1 tablet by mouth oncedaily.calcium, elemental, Tab Take 1 tablet by mouth twice daily.Aspirin 81 mg ORAL CpDR Take by mouth once daily.PAST MEDICAL HISTORYDiagnosis Date- Anemia, unspecified- Bundle branch block, unspecified left- Osteoporosis, unspecified- Other and unspecified hyperlipidemia- Other symptoms involving digestive system (787.99)- Unspecified hypertensive heart disease without heart failureFAMILY HISTORY Cancer Brother Comment: prostate Blood Disease Sister 87Social History Narrative 2005. 3 years but were together for years prior. Briefprevious marriage. Brother 2013.REVIEW OF SYSTEMS:GENERAL: No fever, chills, weight loss, or fatigue.HEAD AND NECK: No blurred vision, cataracts, or hearing loss.CARDIOVASCULAR:NO CHEST PAIN, PALPITATIONS, ANKLE EDEMARESPIRATORY: No chronic cough, wheezing, dyspnea, hemoptysis.GI: Patient denies any history of GERD, PUD, liver problems or ETOHabuse., Patient denies any history of IBD, IBS, colitis, colorectalcancer, or diarrheal states.MUSCULOSKELETAL:NO CHRONIC BACK PAIN, ARTHRITIS, CHRONIC NECK PAINSKIN: NO VARICOSE VEINS, RASH, ABNORMAL ITCHINGBLOOD/LYMPHATIC: NO EASY BLEEDING, EASY BRUISING, TRANSFUSION HXNEUROLOGICAL: NO HEADACHES, NUMBNESS, SEIZURES, STROKE PHYSICAL EXAM: Blood pressure 148/64, pulse 64, height 152.4 cm (5'), weight 59.9 kg (132lb).GENERAL:WNL nutrition, no deformities, healthy appearingGU Exam:Deferred to INSTRUCTIONAL COACH follow up MEDICAL DECISION MAKING: [facility] Kidney InstituteRecurrent UTI Step Prevention Program: Takes 6 months before it is fullyineffect!This is not a treatment program for each time you may get a breakthroughinfection in the future or while you are waiting for the preventionprogram to take effect over the next 6 months. Your primary care team willtreat any breakthrough infections or provide refills for any of mysuggestions below.The following is the recommended treatment to PREVENT recurrent urinarytract infections.1) Topical estrogen cream for atrophic vaginitis: estrace cream fingertipapplication every other night2) Probiotics: take any brand once daily : Try the brand Align but changebrands every 6 months3) A good bowel regimen to promote a BM each day or by every 3rd day4) For break through infections over the next 6 months, use a 3 day courseof Macrobid in which you use 1 pill 2 x a day for 3 days; if symptomspersists and you think you have a UTI, contact your PCP provider.5) You may use AZO as directed as an OTC bladder pain relief when you havea breakthrough UTI; I think aspirin or Motrin/ Aleve OTC is useful as wellduring an active infectionPatient Information:Topical estrogen cream is recommended to restore the vaginal epithelium toits pre menopausal state. With a decrease in estrogen after menopause,the vaginal environment changes. This can lead to increased itchiness,dryness, and irritation. The environment becomes more basic/ alkaline to apH of 6.0 to 7.5. Normally the pH level is around 3.5 to 4.5. Adifferent bacterial jag then begins to colonize the vagina which canlead to increased urinary tract infections. In order to re-establish thegood bacteria jag, it is important to get the vaginal epithelium back toits pre menopausal state. This can be done with topical estrogen cream.A pea sized amount on the tip of the finger used every other night can dothis. It takes about six months for the environment to become hospitableto good bacteria. During this time your doctor may or may not alsoprescribe a low dose daily antibiotic to decrease your chance ofinfections. Side effects of topical estrogen use include breasttenderness, vaginal bleeding or spotting, nonphysiologic discharge,vaginal irritation, burning and itching. If you have a history of deepvein thrombosis, pulmonary embolism, uterine cancer or estrogen receptorpositive breast cancer, you may want to discuss this with your doctorprior to starting topical estrogen use.Histology slides of vaginal epithelium without estrogen then with estrogensupplementation. Epi stands for epithelium. Progress and Prospects inTreating Postmenopausal Vaginal atrophy. Clinical pharmacology ANDTherapeutics, Vol 89 Number 1, March 2010Probiotics also helps in re-establishing the good bacteria in the vaginalflora. Numerous probiotics are available over the counter to use. Thiscan also help with establishing a good bowel regimen.Given the bowel's close proximity to both the vagina and urethra/bladder,it is important to have regular bowel movements to decrease voidingsymptoms and also decrease the risk of urinary tract infections. A goodbowel regimen help with decreasing colonic jag in the perineal area.This can be done with stool softeners available over the counter to gentlelaxatives such as miralax. We would suggest avoiding usp use oflaxatives though and if you would like a consult with gastroenterology foradditional evaluation please ask.Along with these three strategies to prevent recurrent infections, yourdoctor may add additional strategies tailored to your situation.We are commonly asked whether taking cranberry extract will preventurinary tract infections.Based on the most recent [place] Review evaluating cranberries and theprevention of urinary tract infections, there is no clear evidence tosuggest that cranberries effectively prevents urinary tract infections.Supplements with cranberry extracts have not been studied in astandardized fashion to suggest a benefit to using these daily. As such,we do not include using cranberry extract as part of our regimen todecreasing recurrent urinary tract infections.IMPRESSION/PLAN:New or Established> History of UTI > Sulfa Antibiotics > Prednisone 50 mg and Benadryl 50 ml if rash or hives > If difficult breathing or swallowing - to go immediately to ER > Recheck Urine Culture 2 weeks post treatment - orders placed > Will discuss above UTI prevention ProtocolMEE Ward MT, PA-MEE Oleary MT, PA- CElectronically signed CNOV Observed: 06/03/2016 Status: COMPLETED Source: MOBILE 2:30 PM [facility] REPOSITORY Office Visit (UROLWS) ---------TALA LOONEY ([id number]) 1935 FDate Time Provider Department06/03/16 2:30 PM GRETCHEN VIEIRA) UROLWS During your visit today, we recorded the following information about you: Pulse Blood pressure Weight Height 64/minute 148/64 59.9 kg 1.524 AGNES Quiros 06/03/2016 6:41 PM [facility] Kidney InstitutePATIENT INFO: Tala Escamilla M.D.: Self HISTORY CHIEF COMPLAINT: ANDquot;UTIANDquot;HPIThimagalis is a 80 year old female who is her for evaluation of Urinary TractInfection with multiple antibiotic resistantE Coli , with LUTS urgency, dysuriaCurrent TxCiprofloxin 250 mgPrevious TXNonePrevious StudiesCreatinineDate Value Ref Range [id number] 1.17 (H) 0.58 - 0.96 mg/dL Final GUROS: Force of Stream: GoodUrgency: YesDysuria: YesUTI Hx: Yes E Colisulfamethoxazole- trimethoprim (BACTRIM) 400-80 mg per tablet Take 2 tablets bymouth twice daily.predniSONE (DELTASONE) 50 mg tab Take 1 tablet by mouth as directed. If anyhives or rash from Sulfa antibioticsdiphenhydrAMINE (BENADRYL) 50 mg capsule Take 1 capsule by mouth as directed.If any hives or rash from Sulfa antibioticspotassium chloride ER (K-DUR, KLOR-CON) 20 mEq tablet Take 1 tablet by mouthonce daily.triamterene-hydrochlorothiazide 37.5-25 mg per capsule Take 1 capsule by mouthonce daily.amLODIPine (NORVASC) 5 mg tablet Take 1 tablet by mouth once daily.metoprolol succinate ER (TOPROL XL) 50 mg 24 hr tablet 1 tablet by mouth inthe morning and 1/2 tablet in the evening, total of 75 mg daily.atorvastatin (LIPITOR) 10 mg tablet Take 1 tablet by mouth once daily.Cholecalciferol, Vitamin D3, 2,000 unit cap Take 1 tablet by mouth once daily.calcium, elemental , Tab Take 1 tablet by mouth twice daily.Aspirin 81 mg ORAL CpDR Take by mouth once daily.PAST MEDICAL HISTORYDiagnosis Date- Anemia, unspecified- Bundle branch block, unspecified left- Osteoporosis , unspecified- Other and unspecified hyperlipidemia- Other symptoms involving digestive system(787.99)- Unspecified hypertensive heart disease without heart failureFAMILY HISTORY Cancer Brother Comment: prostate Blood Disease Sister 87Social History Narrative 2005. 3 years but were together for years prior. Briefprevious marriage. Brother 2013.REVIEW OF SYSTEMS: GENERAL: No fever, chills, weight loss, or fatigue.HEAD ANDamp; NECK: No blurred vision, cataracts, or hearing loss.CARDIOVASCULAR:NO CHEST PAIN, PALPITATIONS, ANKLE EDEMARESPIRATORY: No chronic cough, wheezing, dyspnea, hemoptysis.GI: Patient denies any history of GERD, PUD, liver problems or ETOH abuse.,Patient denies any history of IBD, IBS, colitis, colorectal cancer, ordiarrheal states.MUSCULOSKELETAL:NO CHRONIC BACK PAIN, ARTHRITIS, CHRONIC NECK PAINSKIN: NO VARICOSE VEINS, RASH, ABNORMAL ITCHINGBLOOD/LYMPHATIC: NO EASY BLEEDING, EASY BRUISING, TRANSFUSION HXNEUROLOGICAL: NO HEADACHES, NUMBNESS, SEIZURES, STROKE PHYSICAL EXAM: Blood pressure 148/64, pulse 64, height 152.4 cm (5'), weight 59.9 kg (132 lb).GENERAL:WNL nutrition, no deformities, healthy appearingGU Exam:Deferred to INSTRUCTIONAL COACH follow up MEDICAL DECISION MAKING: [facility] Kidney InstituteRecurrent UTI Step Prevention Program: Takes 6 months before it is fullyineffect!This is not a treatment program for each time you may get a breakthroughinfection in the future or while you are waiting for the prevention program totake effect over the next 6 months. Your primary care team will treat anybreakthrough infections or provide refills for any of my suggestions below.The following is the recommended treatment to PREVENT recurrent urinary tractinfections.1) Topical estrogen cream for atrophic vaginitis: estrace cream fingertipapplication every other night2) Probiotics: take any brand once daily: Try the brand Align but changebrands every 6 months3) A good bowel regimen to promote a BM each day or by every 3rd day4) For break through infections over the next 6 months, use a 3 day course ofMacrobid in which you use 1 pill 2 x a day for 3 days; if symptoms persists andyou think you have a UTI, contact your PCP provider.5) You may use AZO as directed as an OTC bladder pain relief when you have abreakthrough UTI; I think aspirin or Motrin/Aleve OTC is useful as well duringan active infectionPatient Information:Topical estrogen cream is recommended to restore the vaginal epithelium to itspre menopausal state. With a decrease in estrogen after menopause, the vaginalenvironment changes. This can lead to increased itchiness, dryness, andirritation. The environment becomes more basic/alkaline to a pH of 6.0 to 7.5. Normally the pH level is around 3.5 to 4.5. A different bacterial jag thenbegins to colonize the vagina which can lead to increased urinary tractinfections. In order to re-establish the good bacteria jag, it is importantto get the vaginal epithelium back to its pre menopausal state. This can bedone with topical estrogen cream. A pea sized amount on the tip of the fingerused every other night can do this. It takes about six months for theenvironment to become hospitable to good bacteria. During this time yourdoctor may or may not also prescribe a low dose daily antibiotic to decreaseyour chance of infections. Side effects of topical estrogen use include breasttenderness, vaginal bleeding or spotting, nonphysiologic discharge, vaginalirritation, burning and itching. If you have a history of deep veinthrombosis, pulmonary embolism, uterine cancer or estrogen receptor positivebreast cancer, you may want to discuss this with your doctor prior to startingtopical estrogen use.Histology slides of vaginal epithelium without estrogen then with estrogensupplementation. Epi stands for epithelium. Progress and Prospects inTreating Postmenopausal Vaginal atrophy. Clinical pharmacology ANDamp;Therapeutics, Vol 89 Number 1, March 2010Probiotics also helps in re-establishing the good bacteria in the vaginalflora. Numerous probiotics are available over the counter to use. This canalso help with establishing a good bowel regimen.Given the bowel's close proximity to both the vagina and urethra/bladder, it isimportant to have regular bowel movements to decrease voiding symptoms and alsodecrease the risk of urinary tract infections. A good bowel regimen help withdecreasing colonic jag in the perineal area. This can be done with stoolsofteners available over the counter to gentle laxatives such as miralax. Wewould suggest avoiding usp use of laxatives though and if you would likea consult with gastroenterology for additional evaluation please ask.Along with these three strategies to prevent recurrent infections, your doctormay add additional strategies tailored to your situation.We are commonly asked whether taking cranberry extract will prevent urinarytract infections.Based on the most recent [place] Review evaluating cranberries and theprevention of urinary tract infections, there is no clear evidence to suggestthat cranberries effectively prevents urinary tract infections. Supplementswith cranberry extracts have not been studied in a standardized fashion tosuggest a benefit to using these daily. As such, we do not include usingcranberry extract as part of our regimen to decreasing recurrent urinary tractinfections.IMPRESSION/PLAN:New or EstablishedANDgt; History of UTI ANDgt ; Sulfa Antibiotics ANDgt; Prednisone 50 mg and Benadryl 50 ml if rash or hives ANDgt; If difficult breathing or swallowing - to go immediately to ER ANDgt; Recheck Urine Culture 2 weeks post treatment - orders placed ANDgt; Will discuss above UTI prevention ProtocolMEE Ward MT, PA-MEE Oleary MT, PA-CElectronically signedReferring Provider: SELF [200] Allergies As of Date: 06/03/2016 Noted Allergy ReactionDEMEROL (MEPERIDINE (PF)) 09/10 14 - Other: See Comments Comments: knocked me for a loopINFLUENZA VAC TYP A,B SURF ANT 12/28/2004PENICILLINS 12/28/2004SULFA (SULFONAMIDE ANTIBIOTICS) 05/28/2016 14 - Other: See Comments Comments: pharmacist has sulfa as allergy 05/27/2016Date Reviewed: 2016Reviewed by: Sirena Sebastian Ma - Fully AssessedReason for Visit: New Patient [172] recurrent uti [ Other]Primary Visit Diagnosis:Recurrent UTI [N39.0]Order(s):UA DIP, URINE (POC) [[id number]] Order # : [id number]. #:[id number] sulfamethoxazole- trimethoprim (BACTRIM) 400-80 mg per tabletTake 2 tablets by mouth twice daily.Disp: 20 tabletRfl: 0 predniSONE (DELTASONE) 50 mg tabTake 1 tablet by mouth as directed. If any hives or rash from Sulfa antibioticsDisp: 2 tabletRfl: 1 diphenhydrAMINE (BENADRYL) 50 mg capsuleTake 1 capsule by mouth as directed. If any hives or rash from Sulfa antibioticsDisp: 2 capsuleRfl: 1 URINE CULTURE [SQURCUL] Order #: [id number] FUTUREPrescriptions as of 06/03/2016 Sig: SULFAMETHOXAZOLE 400 MG-TRIME* Take 2 tablets by mouth twice* PREDNISONE 50 MG TABLET Take 1 tablet by mouth as dir* DIPHENHYDRAMINE 50 MG CAPSULE Take 1 capsule by mouth as di* POTASSIUM CHLORIDE ER 20 MEQ * Take 1 tablet by mouth once d* TRIAMTERENE 37.5 MG-HYDROCHLO* Take 1 capsule by mouth once * AMLODIPINE 5 MG TABLET Take 1 tablet by mouth once d* METOPROLOL SUCCINATE ER 50 MG* 1 tablet by mouth in the mor* ATORVASTATIN 10 MG TABLET Take 1 tablet by mouth once d* CHOLECALCIFEROL (VITAMIN D3) * Take 1 tablet by mouth once d* CALCIUM 500 MG TABLET Take 1 tablet by mouth twice * ASPIRIN 81 MG CAPSULE ,DELAYED* Take by mouth once daily.Problem List As Of Date 06/03/2016 Noted Resolved Hypertension [I10] Mixed hyperlipidemia [E78.2] OSTEOPOROSIS NOS [M81.0] ANEMIA NOS [ D64.9] BUNDLE BRANCH BLOCK NOS [I45.4] More... APPENDICITIS ACUTE [K35.80] INVALID FOR*01/19/2009 Hypokalemia [E87.6] INVALID FOR* Change in bowel habits [R19.4] INVALID FOR*Prescriptions ordered this encounter Disp Refills Start End SULFAMETHOXAZOLE 400 MG-TRIMETHOPRIM* 20 t* 0 06/03/2016 Cmt: Supplying pt with Prednisone and benadryl to have on hand if any hives or rash She is aware that any difficulty swallowing or breathing she needs to go immediately to ER Route: ORAL Sig: Take 2 tablets by mouth twice daily. PREDNISONE 50 MG TABLET 2 ta* 1 06/03/2016 Route : ORAL Sig: Take 1 tablet by mouth as directed. If any hives or rash from Sulfa antibiotics DIPHENHYDRAMINE 50 MG CAPSULE 2 ca* 1 06/03/2016 Route: ORAL Sig: Take 1 capsule by mouth as directed. If any hives or rash from Sulfa antibioticsEncrio hondo hospitaler Number: [id number] Status:Closed by GRETCHEN VIEIRA PA-C on 06/03/16 CNCO Observed: 05/27/2016 Status: COMPLETED Source: MOBILE 12:00 AM [facility] REPOSITORY Letter TextPhone: rita Cristina Lizama[address] [place] [id number] #: [id number] Aldafredrickalysa,Due to a change in the provider's schedule it has been necessary toreschedule your Appointment.Your original appointment was scheduled for 07/05/2016 at 1:40 PM with JefferyR. Alesia MD.Your new appointment is now scheduled on 07/04/2016 at 1:40 PM with Carlos Mccall MD.If this new appointment is not convenient for you, please contact our officeat [phone].Thank you for choosing the [facility] as your Healthcare Provider.Sincerely,Family MedicineAppointment Office Observed: 05/26/2016 Status: F Source: MOBILE URINE CULTURE 8:59 AM [facility] REPOSITORY Culture Result - >=100,000 CFU/ml Escherichia coli --&gt ; ABNORMAL ALERT The resistance pattern of this isolate indicates it may be a broad spectrum beta lactamase music video producer. Such strains may be clinically resistant to all cephalosporins, penicillins and aztreonam. --> ABNORMAL ALERTORGANISM: Escherichia coliMETHOD: Minimum inhibitory concentration(Vitek)Antibiotic Interp ADELINE StatusAmpicillin RESISTANT >=32 FGentamicin SUSCEPTIBLE <=1 FTrimeth sulfameth SUSCEPTIBLE <=20 FCefazolin RESISTANT >=64 FCiprofloxacin RESISTANT >=4 FNitrofurantoin INTERMEDIATE 64 FCefepime RESISTANT FCeftriaxone RESISTANT >=64 FMeropenem SUSCEPTIBLE <=0.25 FErtapenem SUSCEPTIBLE <=0.5 F Performed By: #### URCUL ####[facility] [address] [place], [place] [id number] PROGRESS Observed: 05/23/2016 Status: COMPLETED Source: MOBILE 4:32 PM [facility] REPOSITORY HNO ID: [id number]: Carlos Wesleyervice: (none) Author Type: PhysicianType: Progress NotesFiled: 05/24/2016 8:19 AMNote Text:Chief ComplaintPatient presents with:ER F/U: Bladder infectionHPIRita Cristina Looney is a 80 year old female who presents here today forfollow-up of multiple progelsm, mild anemia, HTN. .ACTIVE PROBLEM LISTHypertensionMixed HyperlipidemiaOsteoporosis, UnspecifiedAnemia, UnspecifiedBundle Branch Block, UnspecifiedHypokalemiaChange in Bowel HabitsPast medical history, appointments, medications, allergies reviewed.Previous Medical HistoryPAST MEDICAL HISTORYDiagnosis Date- Anemia, unspecified- Bundle branch block, unspecified left- Osteoporosis, unspecified- Other and unspecified hyperlipidemia- Other symptoms involving digestive system( 787.99)- Unspecified hypertensive heart disease without heart failurePrevious Surgical HistoryPAST SURGICAL ZFGVAQM28/21/11: COLONOSCOP W/ OR W/O [facility] SPEC3: LAPAROSCOPY, SURGICAL, APPENDECTOMYFamily HistoryFAMILY HISTORY Cancer Brother Comment: prostate Blood Disease Sister 87Patient AllergiesALLERGIESAllergen Reactions- Demerol [Meperidine* Other: See Comments knocked me for a loop- Influenza Vac Typ A*- PenicillinsCurrent MedicationsCurrent Outpatient Prescriptions on File Prior to Visit:potassium chloride ER (K-DUR, KLOR-CON) 20 mEq tablet Take 1 tablet bymouth once daily.triamterene-hydrochlorothiazide 37.5-25 mg per capsule Take 1 capsule bymouth once daily.amLODIPine (NORVASC) 5 mg tablet Take 1 tablet by mouth once daily.metoprolol succinate ER (TOPROL XL) 50 mg 24 hr tablet 1 tablet by mouthin the morning and 1/2 tablet in the evening, total of 75 mg daily.atorvastatin (LIPITOR) 10 mg tablet Take 1 tablet by mouth once daily.Cholecalciferol, Vitamin D3, 2,000 unit cap Take 1 tablet by mouth oncedaily.calcium, elemental, Tab Take 1 tablet by mouth twice daily.Aspirin 81 mg ORAL CpDR Take by mouth once daily.No current facility-administered medications on file prior to visit.Social HistorySocial History Marital status: Spouse name: Years of education: Number of children:Social History Main Topics Smoking status: Never Smoker Smokeless status: Never Used Alcohol use: No Drug use: NoSocial History Narrative 2005. 3 years but were together for years prior. Briefprevious marriage. Brother 2013.ROS:General: Feels well, no weight changes , fever, chills.HEENT: No sinus congestion, earache, sore throat.Cardiac: No chest pain, palpitations, shortness of breathResp: No cough, wheeze.GI: No reflux symptoms, food intolerance, bowel changes.: + urinary frequency, no dysuria.MS: No pain or joint complaints.PHYSICAL EXAMINATIONBP 132/70 (BP Site: Right Arm, BP Position: Sitting, BP Cuff Size: RegularAdult) Pulse 72 Resp 12 Wt 59.4 kg (131 lb) BMI 25.58 kg/f6Abtqwej: Alert and oriented, no distress, pleasant and cooperative.Heart: Regular, normal S1 and S2, no murmurs, rubs, or gallopsLungs: Clear to auscultation bilaterallyAbdomen: BenignExtremities: Feet/ankles without edema, posterior tibial pulses full andsymmetricalHealth Maintenance ListTETANUS due on 06/12/1947ZOSTAVAX due on 1996DIABETES SCREEN due on 2018COLORECTAL CANCER SCREENING,SEE MODIFIER due on 12/24/2020IPID SCREEN due on 1BONE DENSITY CompletedADULT PREVNAR-13 CompletedPNEUMOVAX AGE 65 AND OVER WITH 5YR LOOKBACK CompletedData reviewedLab ResultsComponent Value Date/TimeCHOL 187 01/04/2016 09:24 AMHDL 45 (L) 01/04/2016 09:24 AMLDL 105 01/04/2016 09:24 TFIFH8T 5.9 11/20/2009 09:05 AMAssessment/Plan:(N30.90) Cystitis (primary encounter diagnosis)Comment:Plan: URINALYSIS WITH MICROSCOPIC UA ordered.(R73.9) HyperglycemiaComment: she'll return for labsPlan: HGB A1C, BASIC METABOLIC PNLNo medications selected for refill.RTO: if any ongoing symptoms.Carlos Ortega MD URINALYSIS WITH Collected: 05/23/2016 Status: F Source: [place] MICROSCOPIC 10:05 AM [facility] REPOSITORY TYPE CODE TESTS RESULT OUT OF RANGE REFERENCE UNITS LAB UCOL Yellow Color Yellow LAB [facility] Abnormal Clear Clarity Turbid Alert LAB UGLUC Negative mg/dL Glucose, Urine Negative LAB UBIL Negative Bilirubin, Urine Negative LAB UKET Negative Ketones, Urine Negative LAB USPG 1.005-1.030 Specific 1.012 [place], Ur LAB UHGB Abnormal Negative 1+ Alert Hemoglobin/Blood, Ur LAB UPH 4.5-8.0 pH 6.0 LAB UPROT Abnormal Negative mg/dL Protein, Urine 30 Alert LAB UUROB Normal Urobilinogen Normal LAB UNITR Abnormal Negative Nitrites Alert Positive LAB ULKEST Abnormal Negative Leukest 3+ Alert LAB UCOM Comments SEE COMMENT Result Comment: N/A LAB UMCOM Urine Adeline SEE COMMENT Comment Result Comment: N/A LAB UWBC Abnormal Alert 0-5 /HPF WBC >25 LAB URBC Abnormal Alert 0-3 /HPF RBC 11-25 Performed By: #### UAWMIC ####[facility] [place] [facility] [address], [place] [phone] BASIC METABOLIC PANL Collected: 05/23/2016 Status: F Source: MOBILE 9:58 AM [facility] MAIN CAMPUS REPOSITORY TYPE CODE TESTS RESULT OUT OF REFERENCE UNITS RANGE LAB GLU High 74-99 mg/dL Glucose 104 Result Comment: The [place] Diabetes Association (ADA) provides guidance for cutoff values for fasting glucose and random glucose. The ADA defines fasting as no caloric intake for at least 8 hours. Fasting plasma glucose results between 100 to 125 mg/dL indicate increased risk for diabetes (prediabetes).Fasting plasma glucose results greater than or equal to 126 mg/dL meet the criteria for diagnosis of diabetes. In the absence of unequivocal hyperglycemia, results should be confirmed by repeat testing. In a patient with classic symptoms of hyperglycemia or hyperglycemic crisis, random plasma glucose results greater than or equal to 200 mg/dL meet the criteria for diagnosis of diabetes.Reference: Standards of Medical Care in Diabetes 2016 , [place] Diabetes Association. Diabetes Care. 2016.39(Suppl 1). LAB BUN 7-21 mg/dL BUN 20 LAB CRET High 0.58-0.96 mg/dL Creatinine 1.17 LAB NA 136-144 mmol/L Sodium 141 LAB K 3.7-5.1 mmol/L Potassium 4.2 LAB CL 97-105 mmol/L Chloride 101 LAB CO2 22-30 mmol/L CO2 26 LAB AGAP 9-18 mmol/L Anion Gap 14 LAB CA 8.5-10.2 mg/dL Calcium, Total 10.0 LAB GFRAA eGFR- Amer. 54 LAB GFRNAA . eGFR-All Other Races 45 Result Comment: eGFR (Estimated GFR) Units of measure: mL/min/1.73 meters squaredeGFR is derived from the reexpressed MDRD Study equation using the following parameters: serum creatinine, age, gender and race. The creatinine assay has been calibrated to be traceable to IDMS.An eGFR <60 mL/min/1.73m2 for >3 months is consistent with chronic kidney disease. Refer to KDOQI guidelines for clinical interpretation.In patients with unstable renal function, e.g. those with acute kidney injury, the eGFR may not accurately reflect actual GFR. Performed By: #### BMP, HBA1C ####[facility] [place] [facility] [address] [place], [place] [phone] HEMOGLOBIN A1C Collected: 05/23/2016 Status: F Source: [place]LE 9:58 AM [facility] REPOSITORY TYPE CODE TESTS RESULT OUT OF REFERENCE UNITS RANGE LAB HGBA1C High 4.3-5.6 % Hemoglobin 6.1 A1c Result Comment: [place] Diabetes Association guidelines indicate that patients with HgbA1c in the range 5.7-6.4% are at increased risk for development of diabetes , and intervention by lifestyle modification may be beneficial. HgbA1c greater or equal to 6.5% is considered diagnostic of diabetes. LAB HBA0 mg/dL Est. Average 128 Glucose Result Comment: eAG: (Estimated average glucose) is a calculated value from HgbA1c and is electronics parts sales representative of the average blood glucose level in the last 2-3 month period. Performed By: #### BMP, HBA1C ####[facility] [place] [facility] [address] [place], [place] [phone] OBSOLETE Observed: 05/19/2016 Status: COMPLETED Source: [place] 12:00 AM [facility] REPOSITORY Refill (FAMPWS) ---------TALA LOONEY ([id number]) 1935 FDate Time Provider Department05/19/16 CARLOS ORTEGA FAMPWS During your visit today, we recorded the following information about you:Ignacia Jones Pharm-T 2016 2:39 PM SignedPharmacist Refill Authorization ReviewName: Tala NolanRN: [id number]: 05/19/2016Time: 2:38 PMRefill authorization request(s) received via pharmacy request and reviewedunder effective consult agreement. Upon review, did confirm that an activepatient-provider relationship exists and that the prescriber is a participatingphysician under the consult agreement.The medication(s) fall under the following categories:Category 3: 1 corresponding medication(s) does not qualify for renewal due toValid prescription still active at pharmacy. Sent 02/16/16 for 90 days with 1refillAdditional actions taken: Contacted pharmacy to discuss.Ignacia Jones Pharm- TPharmacy Managed Authorization CenterPhone Current Outpatient Prescriptions:ciprofloxacin HCl ( CIPRO) 250 mg tablet Take 250 mg by mouth twice daily.potassium chloride ER (K-DUR, KLOR-CON) 20 mEq tablet Take 1 tablet by mouthonce daily.triamterene-hydrochlorothiazide 37.5-25 mg per capsule Take 1 capsule by mouthonce daily.amLODIPine (NORVASC) 5 mg tablet Take 1 tablet by mouth once daily.metoprolol succinate ER (TOPROL XL) 50 mg 24 hr tablet 1 tablet by mouth inthe morning and 1/2 tablet in the evening, total of 75 mg daily.atorvastatin (LIPITOR) 10 mg tablet Take 1 tablet by mouth once daily.Cholecalciferol, Vitamin D3, 2,000 unit cap Take 1 tablet by mouth once daily.calcium, elemental , Tab Take 1 tablet by mouth twice daily.Aspirin 81 mg ORAL CpDR Take by mouth once daily.No current facility-administered medications for this visit.Allergies As of Date: 05/19/2016 Noted Allergy ReactionDEMEROL (MEPERIDINE (PF)) 09/10/2014 14 - Other: See Comments Comments: knocked me for a loopINFLUENZA VAC TYP A,B SURF ANT 12/28/2004PENICILLINS 12/28/2004Date Reviewed: 05/17/2016Reviewed by: Chelly Zhou Ma - Fully AssessedReason for Visit: Refill Request [94]Prescriptions as of 05/19/2016 Sig: CIPROFLOXACIN 250 MG TABLET Take 250 mg by mouth twice da* POTASSIUM CHLORIDE ER 20 MEQ * Take 1 tablet by mouth once d* TRIAMTERENE 37.5 MG-HYDROCHLO* Take 1 capsule by mouth once * AMLODIPINE 5 MG TABLET Take 1 tablet by mouth once d* METOPROLOL SUCCINATE ER 50 MG* 1 tablet by mouth in the mor * ATORVASTATIN 10 MG TABLET Take 1 tablet by mouth once d* CHOLECALCIFEROL (VITAMIN D3) * Take 1 tablet by mouth once d* CALCIUM 500 MG TABLET Take 1 tablet by mouth twice * ASPIRIN 81 MG CAPSULE,DELAYED* Take by mouth once daily.Problem List As Of Date 05/19/2016 Noted Resolved Hypertension [I10] Mixed hyperlipidemia [E78.2] OSTEOPOROSIS NOS [M81.0] ANEMIA NOS [D64.9] BUNDLE BRANCH BLOCK NOS [I45.4] More... APPENDICITIS ACUTE [K35.80 ] INVALID FOR*01/19/2009 Hypokalemia [E87.6] INVALID FOR* Change in bowel habits [R19.4] INVALID FOR* Status:Closed by IGNACIA TOWNSEND on 05/19/16 CNOV Observed: 05/17/2016 Status: COMPLETED Source: [place] 3:40 PM [facility] REPOSITORY Office Visit (FAMPWS) ---------AAYUSHTALA Cristina ([id number]) 1935 [facility] Time Provider Department05/17/16 3:40 PM CARLOS ORTEGA FAMPWS During your visit today, we recorded the following information about you: Pulse Respiration Blood pressure Weight 72/minute 12/minute 132/70 59.4 kgCarlos Ortega MD 05/24/2016 8:19 AM SignedChief ComplaintPatient presents with:ER F/U: Bladder infectionHPIRita Cristina Aayush is a 80 year old female who presents here today for follow-upof multiple progelsm, mild anemia, HTN. .ACTIVE PROBLEM LISTHypertensionMixed HyperlipidemiaOsteoporosis, UnspecifiedAnemia, UnspecifiedBundle Branch Block, UnspecifiedHypokalemiaChange in Bowel HabitsPast medical history, appointments, medications, allergies reviewed.Previous Medical HistoryPAST MEDICAL HISTORYDiagnosis Date- Anemia, unspecified- Bundle branch block, unspecified left- Osteoporosis , unspecified- Other and unspecified hyperlipidemia- Other symptoms involving digestive system(787.99)- Unspecified hypertensive heart disease without heart failurePrevious Surgical HistoryPAST SURGICAL HNAGAAQ38/21/11: COLONOSCOP W/ OR W/O [facility] SPEC06-02-08: LAPAROSCOPY, SURGICAL, APPENDECTOMYFamily HistoryFAMILY HISTORY Cancer Brother Comment: prostate Blood Disease Sister 87Patient AllergiesALLERGIESAllergen Reactions- Demerol [Meperidine* Other: See Comments ANDquot;knocked me for a loopANDquot;- Influenza Vac Typ A*- PenicillinsCurrent MedicationsCurrent Outpatient Prescriptions on File Prior to Visit:potassium chloride ER (K-DUR, KLOR-CON) 20 mEq tablet Take 1 tablet by mouthonce daily.triamterene-hydrochlorothiazide 37.5-25 mg per capsule Take 1 capsule by mouthonce daily.amLODIPine (NORVASC) 5 mg tablet Take 1 tablet by mouth once daily.metoprolol succinate ER (TOPROL XL) 50 mg 24 hr tablet 1 tablet by mouth inthe morning and 1/2 tablet in the evening, total of 75 mg daily.atorvastatin (LIPITOR) 10 mg tablet Take 1 tablet by mouth once daily.Cholecalciferol, Vitamin D3, 2,000 unit cap Take 1 tablet by mouth once daily.calcium, elemental , Tab Take 1 tablet by mouth twice daily.Aspirin 81 mg ORAL CpDR Take by mouth once daily.No current facility-administered medications on file prior to visit.Social HistorySocial History Marital status : Spouse name: Years of education: Number of children:Social History Main Topics Smoking status: Never Smoker Smokeless status: Never Used Alcohol use: No Drug use: NoSocial History Narrative 2005. 3 years but were together for years prior. Briefprevious marriage. Brother 2013.ROS:General: Feels well, no weight changes , fever, chills.HEENT: No sinus congestion, earache, sore throat.Cardiac: No chest pain, palpitations , shortness of breathResp: No cough, wheeze.GI: No reflux symptoms, food intolerance, bowel changes.: + urinary frequency, no dysuria.MS: No pain or joint complaints.PHYSICAL EXAMINATIONBP 132/70 (BP Site: Right Arm, BP Position: Sitting, BP Cuff Size: RegularAdult) Pulse 72 Resp 12 Wt 59.4 kg (131 lb) BMI 25.58 kg/k9Kehslmh: Alert and oriented, no distress, pleasant and cooperative.Heart: Regular, normal S1 and S2, no murmurs, rubs, or gallopsLungs: Clear to auscultation bilaterallyAbdomen: BenignExtremities: Feet/ankles without edema, posterior tibial pulses full andsymmetricalHealth Maintenance ListTETANUS due on 06/12/1947ZOSTAVAX due on 1996DIABETES SCREEN due on 01/03/2019COLORECTAL CANCER SCREENING,SEE MODIFIER due on 1LIPID SCREEN due on 1BONE DENSITY CompletedADULT PREVNAR-13 CompletedPNEUMOVAX AGE 65 AND OVER WITH 5YR LOOKBACK CompletedData reviewedLab ResultsComponent Value Date/TimeCHOL 187 01/04/2016 09:24 AMHDL 45 (L) 01/04/2016 09:24 AMLDL 105 01/04/2016 09:24 PZTAQ3I 5.9 11/20/2009 09:05 AMAssessment/Plan:( N30.90) Cystitis (primary encounter diagnosis)Comment:Plan: URINALYSIS WITH MICROSCOPIC UA ordered.( R73.9) HyperglycemiaComment: she'll return for labsPlan: HGB A1C, BASIC METABOLIC PNLNo medications selected for refill.RTO: if any ongoing symptoms.Carlos Ortega, MDReferring Provider: SELF [200]Allergies As of Date: 05/17/2016 Noted Allergy ReactionDEMEROL (MEPERIDINE (PF)) 09/10/2014 14 - Other: See Comments Comments: knocked me for a loopINFLUENZA VAC TYP A, B SURF ANT 12/28/2004PENICILLINS 12/28/2004Date Reviewed: 2016Reviewed by: Chelly Zhou Ma - Fully AssessedReason for Visit: ER F/U [41] Cmt: Bladder infectionPrimary Visit Diagnosis:Cystitis [N30.90] Other Visit Diagnosis:Hyperglycemia [R73.9]Order(s ):HGB A1C [ZZPVF8G] Order #: [id number] FUTURE BASIC METABOLIC PNL [SQBMP] Order #: [id number] FUTURE URINALYSIS WITH MICROSCOPIC [SQUAWMIC] Order #: [id number] FUTUREPrescriptions as of 05/17/2016 Sig: CIPROFLOXACIN 250 MG TABLET Take 250 mg by mouth twice da* POTASSIUM CHLORIDE ER 20 MEQ * Take 1 tablet by mouth once d* TRIAMTERENE 37.5 MG-HYDROCHLO* Take 1 capsule by mouth once * AMLODIPINE 5 MG TABLET Take 1 tablet by mouth once d* METOPROLOL SUCCINATE ER 50 MG* 1 tablet by mouth in the mor* ATORVASTATIN 10 MG TABLET Take 1 tablet by mouth once d* CHOLECALCIFEROL (VITAMIN D3) * Take 1 tablet by mouth once d* CALCIUM 500 MG TABLET Take 1 tablet by mouth twice * ASPIRIN 81 MG CAPSULE,DELAYED* Take by mouth once daily.Problem List As Of Date 05/17/2016 Noted Resolved Hypertension [I10] Mixed hyperlipidemia [E78.2] OSTEOPOROSIS NOS [M81.0] ANEMIA NOS [D64.9] BUNDLE BRANCH BLOCK NOS [I45.4] More... APPENDICITIS ACUTE [K35.80] INVALID FOR*01/19/2009 Hypokalemia [E87.6] INVALID FOR* Change in bowel habits [R19.4] INVALID FOR*Follow-up and Disposition History RecordedEncounter Number: [id number] Status: Closed by CHELLY ZHOU MA on 05/24/16 DISCHARGE INSTRUCTION Observed: 05/14/2016 Status: F Source: [place] 9:58 AM [facility] REPOSITORY [facility] [address] [place], [place] [address]Wmjoevfmn Tsafwcniclk36/11/17 0956MR#: [id number] Acct: [id number]: TALA LOONEY Rep #: [id number]: 1935 80 From: Refugio Sanches MDPCP: Celio Ortega MD Status: REG ERED Disposition- Plan for ED Patient:Disposition: Home or Assisted LivingChief Complaint: General IllnessInstructions: ED UTI Cystitis Female, ED Hyperglycemia New Susp DiabetesPrescriptions:Ciprofloxacin [Cipro] 250 mg PO BID #10 tabletReferrals:Celio Ortega MD [Primary Care Provider] - 3-5 Days if not improvingWhat to do if you have ProblemsFor any increased pain, shortness of breath, bleeding, nausea or vomiting, chest pain, or anyunexpected problems, contact your Primary Care Provider. Call [facility] ([phone])or report to the closest Emergency Room.Call 911 if necessary.05/14/16 0958 <Electronically signed by Refugio Sanches MD>Date Refugio Sanches [facility] – DURANTosign Signature (If Indicated): Date CC: Celio Ortega MD EMERGENCY DEPARTMENT Observed: 05/14/2016 Status: F Source: [place] SUMMARY 9:56 AM [facility] REPOSITORY [facility] Records [address] [place], [place] [address]Iwaoukgdn Department Qgbnqni31/11/17 0754MR#: [id number] Acct: [id number]: TALA LOONEY Rep #: [id number]: 1935 80 From: Refugio Sanches MDPCP: Celio Ortega MD Status: REG ER- ER Visit SummaryDate of Service: 05/14/16Chief Complaint: Rate 90, which is abnormal and lower abdominal pressure with urgencyHistory of Present Illness: The patient is a 80 F who presents with abnormal heart rate.States normal heart rate in the 60s. She states her heart rate has been greater than 90 theentire evening. She is on a beta- ciro. She states she is compliant with her meds. Shedenies fever, chills night sweats. She denies any URI symptoms. She denies any cardiac orrespiratory symptoms other than the tachycardia. She does complain of bilateral abdominalpressure with frequency urgency. She states she is only urinating small amounts. She deniesany history of kidney problems. Denies any back or flank pain. She denies nausea, vomitingdiarrhea. She states her last bowel movement was normal. She denies any blood or mucus in herstool. She denies bruising easily.Physical Examination: Pleasant elderly woman who appears in no distress. HEENT exam isunremarkable. Trachea midline. Lungs are clear to auscultation. Heart is regular withoutmurmur, gallop or rub abdomen soft nontender bowel sounds are present. There is no guardingrebound tenderness. There is no CVA tenderness noted. There is no dermatologic lesions noted.Neuro exam is nonfocal.Test Results: CBC is remarkable for H AND H 11.5 and 35.4. White count and differential normal.Electrode panel is remarkable for a potassium 3.3, glucose 132 in a nondiabetic and creatinineof 1.41, which is baseline. Urine is consistent with infection.Emergency Department Course and Treatment: Temperature is elevated for a 80-year-old and bydefinition is a fever even though not recognized by [facility]. Because she has urinary symptoms UAwill be obtained and will obtain a CBC and BMP to assess kidney function as well as hemoglobinand white count. Because she complains of rapid heart rate she was placed on a monitor.Disposition: Patient be discharged home after she receives her first dose of ciprofloxacin inthe department.Impression:1. Acute sinusitis2. End- stage renal disease stage III3. Hypokalemia4. Elevated blood sugar in a nondiabetic patientED Disposition- Plan for ED Patient:Chief Complaint: General IllnessReferrals:Celio Ortega MD [Primary Care Provider] -What to do if you have ProblemsFor any increased pain, shortness of breath, bleeding, nausea or vomiting, chest pain, or anyunexpected problems, contact your Primary Care Provider. Call [facility] ([phone])or report to the closest Emergency Room.Call 911 if necessary.05/14/16 0956 <Electronically signed by Refugio Sanches MD>Date Refugio Sanches MDCosigner Signature (If Indicated): Date CC: Celio Ortega MD URINALYSIS, COMPLETE Collected: 05/14/2016 Status: F Source: [place] 8:55 AM [facility] REPOSITORY Order Comment: Order Date: 05/14/16Order Date: 05/14/16How was Urine Obtained? CLEAN CATCH TYPE CODE TESTS RESULT OUT OF RANGE REFERENCE UNITS LAB L400.3000 Normal Yellow COLOR Yellow LAB L400.3050 Normal Clear CLARITY Sl. Cloudy LAB L400.3200 Normal Normal mg/dl GLUCOSE, UR Normal LAB L400.3300 Normal Negative mg/dL BILIRUBIN Negative URINE LAB L400.3400 Normal Negative mg/dl KETONE UR Negative LAB L400.3465 Normal 1.002-1.030 SP.GR. 1.015 DIPSTX LAB L400.3550 Normal 5.0 - 8.0 pH UR 6.0 LAB L400.3600 High Negative mg/dl PROT DIPSTX 30 LAB L400.3700 Normal Normal mg/dl UROBILI Normal LAB L400.3750 High Negative NITRITE UR Positive LAB L400.3780 High Negative /ul OCCULT 250 BLOOD-UR LAB L400.3800 High Negative /ul LEUK 500 ESTERASE LAB L400.4050 Normal 0-5 /hpf WBC >100 SEEN LAB L400.4100 Normal 0-5 /hpf RBC-UA 0 SEEN LAB L400.4150 Normal 5-10 /hpf SQUAM EPI 0-5 SEEN LAB L400.4300 Normal None Seen /hpf BACTERIA 2+ LAB L400.4350 Normal <or=2+ /hpf MUCUS, 0 SEEN URINE Performed By: #### L400.0001 ####[facility] [address] [place], [place], [id number] CBC W/DIFF, AUTOMATED Collected: 05/14/2016 Status: F Source: [place] 8:00 AM [facility] REPOSITORY TYPE CODE TESTS RESULT OUT OF RANGE REFERENCE UNITS LAB L100.1000 Normal 4.4-11.0 K/mm3 WBC 9.0 LAB L100.1200 Low 4.2-5.4 M/mm3 RBC 3.79 LAB L100.1300 Low 12.0-15.0 g/dl HGB 11.5 LAB L100.1400 Low 37-47 % HCT 35.4 LAB L100.1500 Normal 81-99 fL MCV 93.4 LAB L100.1600 Normal 27.0-32.0 pg MCH 30.3 LAB L100.1700 Normal 32-36 g/gl MCHC 32.5 LAB L100.1810 Normal 11.6-14.6 % RDW 13.5 CV LAB L100.1820 High 35.1-43.9 fl RDW 44.2 SD LAB L100.1900 Normal 150-450 K/mm3 PLT 236 LAB L100.2000 Normal 6.2-12.0 fl MPV 9.5 LAB L100.2100 Normal 47-70 % NEUT% 67.4 LAB L100.2200 Low 19-41 % LY% 18.5 LAB L100.2300 High 0-10 % MONO% 12.7 LAB L100.2400 Normal 0-5 % EO% 1.1 LAB L100.2500 Normal 0-1 % BASO% 0.2 LAB L100.2550 Normal 0.0-0.9 % IM 0.100 GRAN % Result Comment: IG% - Immature Granulocytes (promyelocytes, myelocytes andmetamyelocytes) > 1% indicates that a LEFT SHIFT is Present. LAB L100.2620 Normal 2.0-7.7 X10 3/uL Absolute Neut 6.1 LAB L100.2720 Normal 0.83-4.51 X10 3/ul Absolute Lymph 1.67 Performed By: #### L100.0100 ####[facility] [address] [place], [address] BASIC METABOLIC Collected: 05/14/2016 Status: F Source: [place] PROFILE ([facility]) 8:00 AM [facility] REPOSITORY TYPE CODE TESTS RESULT OUT OF RANGE REFERENCE UNITS LAB L501.0100 High 70-110 mg/dL GLU 132 Result Comment: Fasting Glucose result greater than or equal to 126 mg/ dLsuggests DIABETES MELLITUS per A.D.A. criteria. LAB L501.1000 High 7-18 mg/dL BUN 29 LAB L501.1100 High 0.55-1.02 mg/dL CREAT,SERUM 1.41 Result Comment: The validity of the calculated GFR AND GFRAA in patients over70 years has not been determined. Clinical correlation isessential. LAB L501.1110 Low >60 mL/min EST GFR 38 Result Comment: Non- GFR Calc LAB L501.1115 Low >60 mL/min EST GFR - AA 46 Result Comment: GFR Calc LAB L501.1255 Normal ml/min Estimated 23.24 CRCL LAB L501.1300 High 10-20 RATIO BUN/CRE 20.6 LAB L501.2200 Normal 8.5-10 mg/dL CA 8.9 .1 LAB L501.5300 Normal 136-14 mmol/L NA 143 5 LAB L501.5600 Low 3.5-5. mmol/L K 3.3 1 LAB L501.5900 Normal 98-107 mmol/L CL 106 LAB L501.6100 Normal 21.0-3 mmol/L CO2 27.0 2.0 LAB L501.6200 Normal 5-15 GAP 10 Performed By: #### L500.2500 ####[facility] [address] [place], [address] ALLERGIES ALLERGIES DATE TYPE / NAME / CODE REACTION SEVERITY SOURCE CODE 05/28/2016 Drug SULFA OTHER: SEE C [facility] [place] [facility] Class/4195 (SULFONAMIDE [place] [address](SNOM ANTIBIOTICS) Repository ED CT) 05/14/2016 Drug meperidine Low blood Unknown [place] Allergy/41 HCl/[id number](RX pressure Community [id number]( NORM) [facility]) Repository 05/14/2016 Drug Penicillins/F0010 Anaphylaxis Unknown [place] Allergy/41 80373(RXNORM) Community 5816636([facility]) Repository 05/14/2016 Drug Sulfa Hives Unknown [place] Allergy/41 (Sulfonamide Community 2644048( Antibiotics)/F001 [facility]) 855973(RXNORM) Repository 05/14/2016 Allergy/42 meperidine HCl Low blood [place] 1542234( pressure [facility]) Hospital Repository 05/14/2016 Allergy/42 Penicillins Anaphylaxis [place] [id number]([facility]) Hospital Repository 05/14/2016 Allergy/42 Sulfa Hives [place] 9535373(SN (Sulfonamide Community OMED CT) Antibiotics) Hospital Repository 09/10/2014 DRUG/06188 MEPERIDINE (PF) OTHER: SEE C [facility] [place] [facility] 1003(SNOME [place] D [facility]) Repository 12/28/2004 DRUG/25471 INFLUENZA VAC TYP [facility] [place] [facility] 1003(SNOME A,B SURF ANT [place] D [facility]) Repository 12/28/2004 Drug PENICILLINS [facility] Class/4195 [place] [address](SNOM Repository ED CT) ENCOUNTERS ENCOUNTERS ADMIT/DISCHARGE ACCOUNT ADMITTING ENCOUNTER LOCATION SOURCE NUMBER CLASS 05/07/2017 [id number] Emergency [facility] ing:ED Repository 12/12/2016/12/13/19 [id number] Ambulatory [address] [place] Repository 09/30/2016/10/01/19 [id number] Ambulatory [address] [place] Repository 09/30/2016/10/04/19 [id number] Ambulatory [address] [place] Repository 07/04/2016/07/05/19 [id number] Ambulatory [address] [place] Repository 07/02/2016/07/03/19 [id number] Ambulatory [address] [place] Repository 06/27/2016/06/28/19 [id number] Ambulatory [address] [place] Repository 06/03/2016/06/05/19 [id number] Ambulatory [address] [place] Repository 05/23/2016/05/24/19 [id number] Ambulatory [address] [place] Repository 05/17/2016/05/18/19 [id number] Ambulatory [address] [place] Repository 05/14/2016/05/15/19 [id number] Emergency [address] ing:ED Repository PAYERS PAYERS ENCOUNTER GUARANTOR PAYER SUBSCRIBER SOURCE 05/07/2017 TALA B Primary TALA B [place] [id number] Insurance:MEDICARE DEPASQUADOB: [facility] PART A [facility] [id number] Repository [id number]: [phone] [id number] [phone] () Date:2017-05-07 05/07/2017 Secondary TALA B [place] Insurance:[facility] DEPASQUADOB: Community Number: [id number] [facility] [id number] Repository Date:[id number], [place] [address]FP: 05/07/2017 Tertiary NOT GIVENUNK [place] Insurance:SELF PAY [facility] Number: Effective Repository Date:2017-05-07 05/14/2016 TALA B Primary TALA B [place] [id number] Insurance:MEDICARE DEPASQUADOB: [facility] PART A [facility] [id number] Number: Repository [id number]: [id number] [phone] () Date:2001-06-04 05/14/2016 Secondary TALA B [place] [facility] DEPASQUADOB: [facility] Number: [id number] Hospital [id number] Repository Date:[id number], [place] [address]RB:
--- NOTE | 2017-05-07 19:07 | ED.DEP ---
ED Disposition - Plan for ED Patient: Disposition: Home or Assisted Living Chief Complaint: Diarrhea Prescriptions: Ondansetron [Zofran Odt] 4 mg PO Q4H PRN PRN #10 tab.rapdis PRN Reason: Nausea Referrals: Denny Case MD [Primary Care Provider] - As soon as possible Additional Instructions: Zofran as needed for nausea. Plenty of fluids and rest. Increase your potassium to either twice a day or 2 pills once a day. Your potassium was low today at 2.8. That will need to be rechecked in 1-2 weeks. Call and follow-up your primary care physician.
[2017-05-07 19:23] VITALS: BP 129/58; PULSE 84; RESP 15; O2SAT 98
[2017-05-07] MEDS: Ondansetron ODT 4 MG Tablet PO (19:28)
== END 2017-05-07 19:29 | disposition home or self-care (01) ==
PROVIDERS: Emergency Provider Emergency Medicine; Family Provider Family Medicine; PCP Family Medicine
DX: R19.7 Diarrhea, unspecified (principal); E87.6 Hypokalemia; I12.9 Hypertensive chronic kidney disease with stage 1 through stage 4 chronic kidney disease, or unspecified chronic kidney disease; N18.9 Chronic kidney disease, unspecified; E78.00 Pure hypercholesterolemia, unspecified; Z79.82 Long term (current) use of aspirin; Z79.899 Other long term (current) drug therapy
CPT/HCPCS: 71045; 80048; 80076; 83690; 84484; 85025; 93005; 96360; 99285; J7030; A4216

== ENCOUNTER 2018-04-30 18:30 | Inpatient (IN) | payer MEDICARE, OTHER, SELFPAY ==
[2018-04-30] VITALS (9 sets, daily range): BP systolic 115–142; BP diastolic 64–91; PULSE 68–130; RESP 15–18; TEMP 36.6–36.7; O2SAT 97–99; BMI 24.4; BMI 25.8
--- NOTE | 2018-04-30 18:43 | ED.RN ---
RN CALLED FOR EKG, PULLED OLD EKGS FOR
--- NOTE | 2018-04-30 18:54 | EKG12_ITS ---
Test Reason : TACHY Blood Pressure : / mmHG Vent. Rate : 129 BPM Atrial Rate : 122 BPM P-R Int : 000 ms QRS Dur : 124 ms QT Int : 360 ms P-R-T Axes : 000 089 -72 degrees QTc Int : 527 ms Atrial fibrillation with rapid ventricular response Non-specific intra-ventricular conduction delay Abnormal ECG Confirmed by MILENA SOMMER, DEEP ([id number]), technical writer and editor BAILEY RUGGIERO ([id number]) on 05/02/2018 10:05:27 AM Referred By: LIBAN Confirmed By:DEEP ABBOTT MD
--- NOTE | 2018-04-30 18:54 | RAD_ITS ---
STUDY: X-RAY CHEST REASON FOR EXAM: Female, 82 years old. Chest pain and palpitation TECHNIQUE: AP portable COMPARISON: May 07, 2017 FINDINGS: The lungs are clear and expanded. There is no demonstrated pleural abnormality. Normal size heart. Normal mediastinum and jacob. Normal visualized pulmonary arteries. Mildly calcified aortic arch and descending thoracic aorta. Dorsal spine demonstrates mild scoliosis and degenerative change. Normal visualized ribs, clavicles, and shoulders. There is no demonstrated abnormality of the visualized soft tissue structures of the upper abdomen. RAD/Chest 1 View (Portable) IMPRESSION: No acute cardiopulmonary pathology Electronically Signed: Celio Gauthier MD at 19:37 EST , Service support ,
[2018-04-30 19:18] LABS: BUN 23 mg/dL (7-18); Creatinine, Serum 1.28 mg/dL (0.55-1.02); Estimated Creatinine Clearance 24.76 ml/min; Glucose 152 mg/dL (74-106)
[2018-04-30 19:19] LABS: Absolute Neutrophil Count 3.6 X10^3/uL (2.0-7.7); Anion Gap 13 (5-15); Basophil# 0.02 X10^3/uL; Basophil% 0.3 % (0-1); Calcium,Total 9.1 mg/dL (8.5-10.1); Chloride 105 mmol/L (98-107); EST Glomerular Filtration Rate 42 mL/min (>60); Eosinophil# 0.28 X10^3/uL; Eosinophils% 3.9 % (0-5); Est Glom Filt Rate - Afr Amer 51 mL/min (>60); Hematocrit 41.2 % (37-47); Hemoglobin 13.3 g/dl (12.0-15.0); Lymphocyte % 35.9 % (19-41); Mean Corp Hgb Conc 32.3 g/gl (32-36); Mean Corpuscular Hgb 29.2 pg (27.0-32.0); Mean Corpuscular Volume 90.5 fL (81-99); Mean Platelet Vol. 9.5 fl (6.2-12.0); Monocyte# 0.75 X10^3/uL; Monocyte% 10.4 % (0-10); Neutrophil # 3.59 X10^3/uL (2.7-7.7); Neutrophil % 49.5 % (47-70); Platelet Count 278 K/mm3 (150-450); Potassium 3.2 mmol/L (3.5-5.1); RBC Distribution Width SD 45.9 fl (35.1-43.9); Red Blood Count 4.55 M/mm3 (4.2-5.4); Sodium Level 141 mmol/L (136-145); White Blood Count 7.2 K/mm3 (4.4-11.0)
[2018-04-30 19:21] LABS: POSITIVE COUNT NO; POSITIVE DIFFERENTIAL NO; POSITIVE MORPHOLOGY NO
[2018-04-30] MEDS: APIXABAN 5 MG TABLET PO (20:23)
--- NOTE | 2018-04-30 21:29 | ED.VIS.GEN ---
History of Present Illness Chief Complaint: Palpitations Detail of Chief Complaint: Elevated blood pressure and elevated heart rate on blood pressure monitor Informant: Patient Onset: Today Timing: - - Unknown Quality: Not applicable Location: Not applicable Current Severity: Mild Maximum Severity: Mild Worsened by: Nothing Relieved by: Nothing Associated Symptoms: None Narrative: Patient is a 82-year-old woman who has history of hypertension on multiple meds who presents because her blood pressure reading at home was high and noted fast heart rate. She was unaware that her heart rate was irregular. Onset of irregularity unknown. She has no known history of dysrhythmia or atrial fibrillation. She is on no anticoagulant. She denies chest pain. She denies shortness of breath, orthopnea, PND or dyspnea on exertion. She denies leg pain, swelling or discoloration. Prior similar symptoms: No Recent Illness/Hospitalization: No Past Medical History - Allergies and Home Meds Allergies/Adverse Reactions: Allergies meperidine HCl [From Demerol] Allergy (Verified 04/30/18 18:31) Low blood pressure Penicillins [PCN] Allergy (Verified 04/30/18 18:31) Anaphylaxis Sulfa (Sulfonamide Antibiotics) Allergy (Verified 04/30/18 18:31) Hives Primary Care Physician: Denny Case MD [Primary Care Provider] - Past Medical History: - - Hypertension and hypercholesterolemia Surgical History: noncontributory Lives: Alone Smoking Status: Never smoker Drugs: None Review of Systems General: Denies: Chills, Fever, Sweats Eyes: Denies: Visual changes - bilaterally, Diplopia ENT: Denies: Rhinorrhea, Sore throat Cardiovascular: Reports: Palpitations. Denies: Chest pain Respiratory: Denies: Dyspnea, Cough, Dyspnea on exertion Gastrointestinal: Denies: Abdominal pain, Nausea, Vomiting, Diarrhea, Melena, Hematochezia Genitourinary: Denies: Dysuria, Hematuria, Frequency Musculoskeletal: Denies: Myalgias, Arthralgias, Back pain, Extremity Pain Skin: Denies: Rash, Wounds Neurological: Denies: Headache, Weakness, Numbness Endocrine: Denies: Polyuria, Polydipsia Hematologic: Denies: Easy bruising, Easy bleeding Allergy: Denies: Uticaria, Swelling of the mouth Physical Exam Vital Signs/Narrative: Vital Signs Temp Pulse Resp BP Pulse Ox 02/25/19 21:08 109 H 18 115/69 97 04/30/18 20:25 95 18 115/82 H 98 04/30/18 19:16 115 H 18 129/83 H 98 04/30/18 18:31 97.9 F 130 H 15 142/91 H 97 Diagnostic/Tx/Re-eval Chest X-Ray - ED: 1 View, Read by ED Physician, Normal, Heart, Lungs, Mediastinum, Bony Structures, No Acute Disease Apparently, TSH was canceled and nurse was unaware. We will redraw. CBC, electronic panel and troponin were remarkable for a creatinine 1.28 and potassium of 3.2. - Rhythm Strip Rhythm Strip: A-fib Rate: 131 Ectopy: None - EKG Initial EKG Interpretation: Atrial Fibrillation, - - Ventricular rate 129. QRS duration prolonged and evidence of an intraventricular conduction delay. [place] is normal. - Medical Decision Making With new onset atrial fibrillation need to evaluate for cardiac ischemia, doubt pulmonary embolus. Suspect secondary to long-standing hypertension. May also have valvular heart disease. To evaluate patient CBC was obtained to assess for white count and anemia. Like to try to assess electro lites and renal function. TSH was obtained to rule out hyperthyroidism. EKG to evaluate for ischemia and etiology of her rapid heartbeat. Troponin was obtained to evaluate for ID. Patient was started on Eliquis. She will need echo and further inpatient testing. She was not cardioverted since onset is unknown. Heart rate has slowed. She is presently on beta-blockers. ED Disposition - Plan for ED Patient: Disposition: Acute Care Hospital [facility] Diagnosis: Atrial fibrillation with RVR, History of hypertension, History of hypercholesterolemia Referrals: Denny Case MD [Primary Care Provider] -
--- NOTE | 2018-04-30 21:34 | ED.DCSUM_ITS ---
History of Present Illness Chief Complaint: Palpitations Detail of Chief Complaint: Elevated blood pressure and elevated heart rate on blood pressure monitor Informant: Patient Onset: Today Timing: - - Unknown Quality: Not applicable Location: Not applicable Current Severity: Mild Maximum Severity: Mild Worsened by: Nothing Relieved by: Nothing Associated Symptoms: None Narrative: Patient is a 82-year-old woman who has history of hypertension on multiple meds who presents because her blood pressure reading at home was high and noted fast heart rate. She was unaware that her heart rate was irregular. Onset of irregularity unknown. She has no known history of dysrhythmia or atrial fibrillation. She is on no anticoagulant. She denies chest pain. She denies shortness of breath, orthopnea, PND or dyspnea on exertion. She denies leg pain, swelling or discoloration. Prior similar symptoms: No Recent Illness/Hospitalization: No Past Medical History - Allergies and Home Meds Allergies/Adverse Reactions: Allergies meperidine HCl [From Demerol] Allergy (Verified 04/30/18 18:31) Low blood pressure Penicillins [PCN] Allergy (Verified 04/30/18 18:31) Anaphylaxis Sulfa (Sulfonamide Antibiotics) Allergy (Verified 04/30/18 18:31) Hives Primary Care Physician: Denny Case MD [Primary Care Provider] - Past Medical History: - - Hypertension and hypercholesterolemia Surgical History: noncontributory Lives: Alone Smoking Status: Never smoker Drugs: None Review of Systems General: Denies: Chills, Fever, Sweats Eyes: Denies: Visual changes - bilaterally, Diplopia ENT: Denies: Rhinorrhea, Sore throat Cardiovascular: Reports: Palpitations. Denies: Chest pain Respiratory: Denies: Dyspnea, Cough, Dyspnea on exertion Gastrointestinal: Denies: Abdominal pain, Nausea, Vomiting, Diarrhea, Melena, Hematochezia Genitourinary: Denies: Dysuria, Hematuria, Frequency Musculoskeletal: Denies: Myalgias, Arthralgias, Back pain, Extremity Pain Skin: Denies: Rash, Wounds Neurological: Denies: Headache, Weakness, Numbness Endocrine: Denies: Polyuria, Polydipsia Hematologic: Denies: Easy bruising, Easy bleeding Allergy: Denies: Uticaria, Swelling of the mouth Physical Exam Vital Signs/Narrative: Vital Signs Temp Pulse Resp BP Pulse Ox 02/25/19 21:08 109 H 18 115/69 97 04/30/18 20:25 95 18 115/82 H 98 04/30/18 19:16 115 H 18 129/83 H 98 04/30/18 18:31 97.9 F 130 H 15 142/91 H 97 Diagnostic/Tx/Re-eval Chest X-Ray - ED: 1 View, Read by ED Physician, Normal, Heart, Lungs, Mediastinu m, Bony Structures, No Acute Disease Apparently, TSH was canceled and nurse was unaware. We will redraw. CBC, electronic panel and troponin were remarkable for a creatinine 1.28 and potassium of 3.2. - Rhythm Strip Rhythm Strip: A-fib Rate: 131 Ectopy: None - EKG Initial EKG Interpretation: Atrial Fibrillation, - - Ventricular rate 129. QRS duration prolonged and evidence of an intraventricular conduction delay. [place] is normal. - Medical Decision Making With new onset atrial fibrillation need to evaluate for cardiac ischemia, doubt pulmonary embolus. Suspect secondary to long-standing hypertension. May also have valvular heart disease. To evaluate patient CBC was obtained to assess for white count and anemia. Like to try to assess electro lites and renal function. TSH was obtained to rule out hyperthyroidism. EKG to evaluate for ischemia and etiology of her rapid heartbeat. Troponin was obtained to evaluate for MT. Patient was started on Eliquis. She will need echo and further inpatient testing. She was not cardioverted since onset is unknown. Heart rate has slowed. She is presently on beta-blockers. ED Disposition - Plan for ED Patient: Disposition: Acute Care Hospital [facility] Diagnosis: Atrial fibrillation with RVR, History of hypertension, History of hypercholesterolemia Referrals: Denny Case MD [Primary Care Provider] -
--- NOTE | 2018-04-30 21:44 | HP.PCM_ITS ---
Problem List (1) Atrial fibrillation with RVR Status: Acute (2) History of hypertension Status: Chronic (3) History of hypercholesterolemia Status: Chronic History of Present Illness Date of Admission: 04/30/18 Chief Complaint: elevated pulse The patient is a 82 year old F with a significant history of hypertension; hyperlipidemia; and CKD stage III who presented to the emergency department because of elevated pulse on the same day of admission. Patient took her pulse and she found that her pulse was elevated. She then used her blood pressure machine to check her pulse; and blood pressure. Her documented blood pressure readings showed blood pressures in the normal range but a pulse of 123. Also patient felt that her face was flushed. She denies any chest pain, palpitations, lightheadedness or vertigo. At emergency department patient was found to be in A. fib with RVR. At emergency department patient was given metoprolol IV and Eliquis 5 mg x1. Past Medical History Past Medical History (Chronic Problems): Chronic Problems History of hypertension (Chronic) History of hypercholesterolemia (Chronic) Allergies meperidine HCl [From Demerol] Allergy (Verified 04/30/18 18:31) Low blood pressure Penicillins [PCN] Allergy (Verified 04/30/18 18:31) Anaphylaxis Sulfa (Sulfonamide Antibiotics) Allergy (Verified 04/30/18 18:31) Hives Home Medications: Ambulatory Orders Medication Instructions Recorded Atorvastatin Calcium [Lipitor] 10 mg PO QHS 03/31/14 Triamterene 37.5MG/Hctz 25MG 1 cap PO DAILY 03/31/14 [Dyazide (G)] Aspirin [Aspirin, Baby] 81 mg PO DAILY@0800 06/04/14 Metoprolol Succinate [Toprol Xl] 25 mg PO QHS 05/14/16 Metoprolol(XL)Succ [Toprol Xl 50 mg PO DAILY 05/14/16 (Beta Garrett)] Potassium Chloride [K-Dur] 20 meq PO DAILY 05/14/16 Cholecalciferol (VIT D3) [Vitamin 2,000 unit PO DAILY 05/07/17 D] Amlodipine Besylate 10 mg PO DAILY 04/30/18 Surgical History: appendectomy, cholecystectomy, tonsillectomy Lives: Alone Smoking Status: Never smoker Drugs: None - *Family History Maternal History Items: Diabetes Paternal History Items: - - Parkinson disease; bowel obstruction. Review of Systems Constitutional: Denies: Chills, Fever, Weight Change HEENT: Denies: Head Aches, Sinus Congestion, Sinus Drainage Cardiovascular: Denies: Chest Pain, Palpitations Respiratory: Denies: Cough, Shortness of breath at rest, Sputum production Gastrointestinal: Denies: Abdominal Pain, Nausea, Vomiting Genitourinary: Denies: Dysuria Musculoskeletal: Denies: Joint Pain, Joint Tenderness Skin: Denies: Rash, Wounds Neurological: Denies: Numbness, Tingling, Focal weakness Psychiatric: Denies: Anxiety, Depression, Homicidal Ideations, Suicidal Ideations Hematologic/ Lymphatic: Denies: Easy Bruising, Easy Bleeding VTE Information - Inpt Only VTE Present on Admission: No VTE Mechan Device Prophylaxis: Knee High FILEMON Hose VTE Pharm Prophylaxis ordered?: No Patient Problems: Active and Suspected Problems Atrial fibrillation with RVR (Acute) - Physical Exam General: Alert, Oriented x3, Cooperative HEENT: Atraumatic, PERRLA, EOMI, Normocephalic Neck: Supple, No JVD, Negative Carotid Bruits Lungs: Clear to auscultation, Normal air movement Cardiovascular: Regular rate, No murmurs Abdomen: Bowel Sounds Present, Soft, Non Tender Extremities: No edema, Capillary Refill Less than 3 Seconds Skin: No rashes, No breakdown Musculoskeletal: No Tenderness to Palpation of Joints or Extremities Neurological: Neuro grossly intact Psych/Mental Status: Normal Affect, Appropriate Vital Signs Temp Pulse Resp BP Pulse Ox 97.9 F 109 H 18 115/69 97 04/30/18 18:31 04/30/18 21:08 04/30/18 21:08 04/30/18 21:08 04/30/18 21:08 Oxygen Delivery Method Room Air Weight: 56.699 kg Body Mass Index (BMI) 24.4 Finger Stick Blood Glucose 169 Laboratory Tests Past 24 Hrs 04/30/18 04/30/18 18:55 18:55 WBC 7.2 RBC 4.55 Hgb 13.3 Hct 41.2 MCV 90.5 MCH 29.2 MCHC 32.3 RDW 14.0 RDW Differential 45.9 H Plt Count 278 MPV 9.5 Immature Gran % (Auto) 0.000 Neut % (Auto) 49.5 Lymph % (Auto) 35.9 Prentiss % (Auto) 10.4 H Eos % (Auto) 3.9 Baso % (Auto) 0.3 Absolute Neuts (auto) 3.6 Absolute Lymphs (auto) 2.60 Total Counted Not Reportable Sodium 141 Potassium 3.2 L Chloride 105 Carbon Dioxide 23.0 Anion Gap 13 BUN 23 H Creatinine 1.28 H Estim Creat Clear Calc 24.76 Est GFR (MDRD) Af Amer 51 L Est GFR (MDRD) Non-Af 42 L BUN/Creatinine Ratio 18.0 Glucose 152 H Calcium 9.1 Troponin I < 0.015 Assessment/Plan All Active Problems Atrial fibrillation with RVR (Acute) The patient is a 82 year old F with a significant history of hypertension; hyperlipidemia; and CKD stage III who presented to the emergency department because of elevated pulse on the same day of admission and found to be in A. fib with RVR.. A. fib RVR Admitted to PCU on telemetry Troponin at emergency department was unremarkable. At the time of my evaluation patient has received metoprolol 5 mg IV and was in sinus rhythm with occasional PACs. Patient reports history of cardiomegaly. Obtain echo Received Eliquis 5 mg x1 at the emergency department. Patient has a high [id number] = 4 (age more equal 75 years; female gender; and hypertension; and assuming patient has no history of congestive heart failure). Because the patient is more than 82 years; weight less than 60 kg and his serum creatinine is more than 1.5 we will continue patient on Eliquis 2.5 mg p.o. twice daily. Since patient has not taking her nighttime dose of metoprolol will resume her night metoprolol; and continue her on her daily twice daily metoprolol. Potassium was 3.2 on admission. Remarkably patient take potassium supplement at home. Received 50 mg of potassium at emergency department. We will give an additional 10 meq of potassium and continue patient on her daily 20 mEq that will be started in a.m. TSH and Magnesium ordered Trend BMP Hypertension On presentation her blood pressure was within goal for her age. Metoprolol and amlodipine continued Trend blood pressure and adjust blood pressure medications. Hyperlipidemia Lipitor continued Vitamin D deficiency Vitamin D continued Hypokalemia Management as above DVT prophylaxis On home FILEMON hose; continued Therapeutic anticoagulation with Eliquis for A. fib with RVR. Code Visit OBSV E&M: 42396 Initial observation care L3
--- NOTE | 2018-04-30 22:28 | ECHOD_ITS ---
Reason For Study: Afib/Flutter Procedure This was a 2D Doppler, Color Flow transthoracic echocardiogram. The exam was of adequate technical quality. Exam performed portable in patient room. Left Ventricle Normal LV size. Left ventricular systolic function is normal. The estimated ejection fraction is 55 %. Septal motion consistent with IVCD. Diastolic function is indeterminate. Right Ventricle Normal RV size. Normal systolic function. Atria The left atrium is moderately enlarged. Normal right atrium. No doppler evidence for ASD. Mitral Valve There is mild mitral annular calcification. Normal mitral valve. Trivial mitral valve insufficiency. Tricuspid Valve Normal tricuspid valve. Trivial tricuspid valve insufficiency. Right ventricular systolic pressure estimated to be 25 mmHg. Aortic Valve Trisinus/trileaflet aortic valve. Mild focal aortic valve calcification. Mild (1+) aortic valve insufficiency. Pulmonic Valve The pulmonic valve is not well visualized. Mild (1+) pulmonic valve insufficiency. Great Vessels Mildly dilated aortic root. Pericardium/Pleural No pericardial effusion. MMode/2D Measurements & Calculations LVIDd: 3.9 cm IVSd: 1.3 cm Ao root diam: 4.0 cm LVIDs: 2.4 cm LVPWd: 0.95 cm LA dimension: 2.9 cm RVDd: 3.3 cm FS: 39.9 % LAV(MOD-bp): 56.7 ml LA A4 area: 19.3 cm2 RA A4 area: 14.8 cm2 LAV(MOD-bp) Indexed: 37.3 ml/m2 LAV(MOD-sp2): 55.9 ml LAV(MOD-sp4): 55.0 ml Time Measurements MV dec time: 0.28 sec Doppler Measurements & Calculations MV E max fred: 66.9 cm/sec Lat Peak E' Fred: 5.9 cm/sec Med Peak E' Fred: 5.0 cm/sec MV A max fred: 84.7 cm/sec E/E' lat: 11.4 E/E' med: 13.3 MV E/A: 0.79 MV V2 max: 89.1 cm/sec MV P1/2t max fred: 68.7 cm/sec Ao V2 max: 108.7 cm/sec MV max P.2 mmHg MV P1/2t: 104.8 msec Ao max P.7 mmHg MV V2 mean: 48.3 cm/sec MV dec slope: 192.1 cm/sec2 MV mean P.1 mmHg MVA(P1/2t): 2.1 cm2 MV V2 VTI: 29.0 cm AI max fred: 370.5 cm/sec LV V1 max: 82.5 cm/sec PA V2 max: 79.9 cm/sec AI max P.2 mmHg LV V1 max P.7 mmHg AI dec slope: 135.3 cm/sec2 AI P1/2t: 801.8 msec TR max fred: 232.8 cm/sec TR max P.7 mmHg Interpretation Summary Left ventricular systolic function is normal. The estimated ejection fraction is 55 %. Septal motion consistent with IVCD. The left atrium is moderately enlarged. There is mild mitral annular calcification. Trivial mitral valve insufficiency. Trivial tricuspid valve insufficiency. Mild focal aortic valve calcification. Mild (1+) aortic valve insufficiency. Mild (1+) pulmonic valve insufficiency. Mildly dilated aortic root. Right ventricular systolic pressure estimated to be 25 mmHg. Diastolic function is indeterminate. Ordering Physician: Adolfo Porter Referring Physician: Denny Case Performed By: Taqueria Coughlin RCS
[2018-04-30 23:04] LABS: Magnesium 1.7 mg/dL (1.6-2.6); Thyroid Stim Hormone (TSH) 4.92 uIU/mL (0.358-3.74)
[2018-04-30] MEDS: Atorvastatin Calcium 10 MG Tablet PO (23:35)
[2018-04-30] MEDS: Metoprolol(XL)Succ 25 MG Tablet PO (23:36)
[2018-05-01] VITALS (13 sets, daily range): BP systolic 127–141; BP diastolic 46–69; PULSE 60–78; RESP 16–18; TEMP 36.6–37.1; O2SAT 93–100
[2018-05-01 06:48] LABS: Anion Gap 9 (5-15); BUN 18 mg/dL (7-18); BUN/Creat Ratio 18.7 RATIO (10-20); Calcium,Total 8.7 mg/dL (8.5-10.1); Chloride 111 mmol/L (98-107); Creatinine, Serum 0.96 mg/dL (0.55-1.02); EST Glomerular Filtration Rate 59 mL/min (>60); Est Glom Filt Rate - Afr Amer 71 mL/min (>60); Estimated Creatinine Clearance 40.63 ml/min; Glucose 96 mg/dL (74-106); Potassium 3.7 mmol/L (3.5-5.1); Sodium Level 143 mmol/L (136-145)
[2018-05-01] MEDS: Metoprolol(XL)Succ 50 MG Tablet PO (10:08)
[2018-05-01] MEDS: Aspirin 81 MG TAB.CHEW PO (10:08)
[2018-05-01] MEDS: amLODIPine 10 MG Tablet PO (10:08)
[2018-05-01] MEDS: APIXABAN 2.5 MG TABLET PO ×2 (10:08→22:10)
--- NOTE | 2018-05-01 10:33 | PN_ITS ---
Patient Problems: Active and Suspected Problems Atrial fibrillation with RVR (Acute) Subjective: The patient is an 82-year-old female with a past medical history of hypertension, left bundle branch block, chronic renal failure stage III and hyperlipidemia who presented to the emergency department at [facility] on 04/30/2018 complaining of a fast pulse. The heart rate on her blood pressure machine was 123. She denied chest pain, lightheadedness, nausea/vomiting. EKG in the emergency department showed atrial fibrillation with rapid ventricular response and a LBBB. She was given IV metoprolol in the emergency department and Eliquis 5 mg x1. She converted to normal sinus rhythm while in the emergency department but has been going in and out. She had been on Metoprolol XL 75 mg daily at home. Lab at admission showed an unremarkable CBC and potassium was low at 3.2. The BUN was 23 with a creatinine of 1.28 which is within her baseline. Magnesium was 1.7 and the troponin was less than 0.015. TSH was 4.92. Chest x-ray showed no infiltrates, pleural effusions or pulmonary vascular congestion. There was no cardiomegaly. All events of the past 24 hours of been reviewed. She has been afebrile since admission. Vital signs are stable. Currently the temp is 98 ?F with a heart rate of 70, blood pressure of 137/47, respiratory rate of 18 and she is 93-100% saturated on room air. All lab was personally reviewed. Potassium today is 3.7 following supplementation. The BUN is 18 and the creatinine is 0.96, down from 1.28 at admission. Echocardiogram has been completed but there is no report yet. Telemetry shows paroxysmal atrial fibrillation intermixed with normal sinus rhythm. No significant pauses. ECHO was done this AM - Physical Exam General: Alert, Oriented x3, Cooperative, No apparent distress, Well developed, Well nourished HEENT: Atraumatic, PERRLA, EOMI, Normocephalic Oral: Dry Mucosa Neck: Supple, No JVD, Negative Carotid Bruits Lungs: Clear to auscultation, Normal air movement, No rhonchi, No wheeze, No rales Cardiovascular: Regular rate, Regular Rhythm, Normal S1, Normal S2, Murmur - 1- 2/6 VENUS at the second RICS with no radiation, No rub noted, No Gallop Abdomen: Bowel Sounds Present, Soft, Non Tender, Non-Distended Extremities: No clubbing, No cyanosis, No edema, Diminished Peripheral Pulses Skin: No rashes, No breakdown Neurological: Cranial nerves II-XII grossly intact, Neuro grossly intact Psych/Mental Status: Normal Affect, Appropriate Vital Signs Temp Pulse Resp BP Pulse Ox 98 F 77 18 137/47 H 100 05/01/18 10:04 05/01/18 10:08 05/01/18 10:04 05/01/18 10:04 05/01/18 10:04 Oxygen Delivery Method Room Air Weight: 123 lb 7.342 oz Body Mass Index (BMI) 25.8 Finger Stick Blood Glucose 169 Intake and Output for Last 24 Hours 04/29/18 04/30/18 05/01/18 23:59 23:59 23:59 Intake Total 360 / 360 Balance 360 / 360 Laboratory Tests Past 24 Hrs 04/30/18 04/30/18 04/30/18 18:55 18:55 18:55 WBC 7.2 RBC 4.55 Hgb 13.3 Hct 41.2 MCV 90.5 MCH 29.2 MCHC 32.3 RDW 14.0 RDW Differential 45.9 H Plt Count 278 MPV 9.5 Immature Gran % (Auto) 0.000 Neut % (Auto) 49.5 Lymph % (Auto) 35.9 [place] % (Auto) 10.4 H Eos % (Auto) 3.9 Baso % (Auto) 0.3 Absolute Neuts (auto) 3.6 Absolute Lymphs (auto) 2.60 Total Counted Not Reportable Sodium 141 Potassium 3.2 L Chloride 105 Carbon Dioxide 23.0 Anion Gap 13 BUN 23 H Creatinine 1.28 H Estim Creat Clear Calc 24.76 Est GFR (MDRD) Af Amer 51 L Est GFR (MDRD) Non-Af 42 L BUN/Creatinine Ratio 18.0 Glucose 152 H Calcium 9.1 Magnesium 1.7 Troponin I < 0.015 TSH 4.92 H 05/01/18 05:35 WBC RBC Hgb Hct MCV MCH MCHC RDW RDW Differential Plt Count MPV Immature Gran % (Auto) Neut % (Auto) Lymph % (Auto) [place] % (Auto) Eos % (Auto) Baso % (Auto) Absolute Neuts (auto) Absolute Lymphs (auto) Total Counted Sodium 143 Potassium 3.7 Chloride 111 H Carbon Dioxide 23.0 Anion Gap 9 BUN 18 Creatinine 0.96 Estim Creat Clear Calc 40.63 Est GFR (MDRD) Af Amer 71 Est GFR (MDRD) Non-Af 59 L BUN/Creatinine Ratio 18.7 Glucose 96 Calcium 8.7 Magnesium Troponin I TSH Medical Necessity - Tobacco Use Smoking Status: Never smoker Assessment/Plan All Active Problems Atrial fibrillation with RVR (Acute) Impressions 1. new onset AF with RVR 2. LBBB, PAC's and PVC's 3. HTN 4. HLD 5. Chronic renal failure stage III 6. Hypokalemia Supplement the potassium to keep the K around 4 supplement the MAG to keep it around 2 Await the results of the ECHO Stress in the AM to r/o CAD as the etiology of the new onset AF.....kaleb in light of the LBBB, HLD and HTN hx Recheck the BMP, MAG and a lipid panel in the AM Code Visit Inpatient E&M: 67980 Subs Hosp L2
--- NOTE | 2018-05-01 12:31 | CASEMGMT ---
GARCIA COOMBS assessment: Face to Face with patient for initial transition planning/care coordination assessment. GARCIA COOMBS introduced self and role at [facility], pt voices understanding and consents to assessment at this time. Pt is sitting up in bed in no distress at this time. Pt is A/Ox4 at this time and answers all questions appropriately at this time. Care providers, pharmacy, and demographics verified at this time. PCP: Manpreet Specialists: Pt states currently has no specialists. Preferred Pharmacy: [facility] retail pharmacy Insurance: MCR A/B, [employer] Prescription Benefit: C[employer] Living Will/HPOA: Pt states has a LW/HPOA but they are not currently on file at [facility] at this time. Pt states that her niece, Liliana Johnson, is HPOA. LNOK: Liliana Johnson, nigypsy Living Arrangements: Pt states lives alone on main level of 2 story home and states no concerns at home at this time. Pt states is normally independent with ADL's. Transportation: Pt states drives self and states no transportation concerns at this time. DME/HHC: Pt states has a walker, shower chair, and grab bars but does not use the walker. Pt is interested in info on medical alert buttons at this time and info provided at this time. Pt states no hx of HHC or SNF in the past. Pt states no concerns with going home at time of discharge. Pt is retired. Pt states does not smoke or drink ETOH. Pt states no further concerns/needs at this time. CM to follow for any further discharge planning/needs. Advised pt to ask for CM if any further questions/concerns/needs arise, voices understanding. Plan: Home [place] GARCIA COOMBS
[2018-05-01] MEDS: 0.9% NaCl Peripheral Flush Adult/Peds IV (13:24)
[2018-05-01] MEDS: Metoprolol(XL)Succ 25 MG Tablet PO (22:10)
[2018-05-01] MEDS: Atorvastatin Calcium 10 MG Tablet PO (22:10)
[2018-05-02] VITALS (9 sets, daily range): BP systolic 117–133; BP diastolic 54–61; PULSE 68–80; RESP 16–18; TEMP 36.4–37.1; O2SAT 96–100
--- NOTE | 2018-05-02 05:55 | EKG12_ITS ---
Test Reason : AM EKG Blood Pressure : / mmHG Vent. Rate : 065 BPM Atrial Rate : 065 BPM P-R Int : 136 ms QRS Dur : 134 ms QT Int : 466 ms P-R-T Axes : -06 -37 089 degrees QTc Int : 484 ms Normal sinus rhythm Left axis deviation Left bundle branch block Abnormal ECG When compared with ECG of 30-APR-2018 18:35, MANUAL COMPARISON REQUIRED, DATA IS UNCONFIRMED Confirmed by MANOLO SOMMER, CARLOS ([id number]), communications editor BAILEY RUGGIERO ([id number] on 05/03/2018 4:06:51 PM Referred By: OLY Confirmed By:CARLOS FRENCH MD
[2018-05-02] MEDS: Aspirin 81 MG TAB.CHEW PO (05:57)
[2018-05-02 05:58] LABS: International Normalized Ratio 1.2
[2018-05-02 06:00] LABS: Partial Thromboplast Time 33.1 Seconds (24.1-36.2)
[2018-05-02 06:06] LABS: Absolute Neutrophil Count 4.7 X10^3/uL (2.0-7.7); Basophil# 0.02 X10^3/uL; Basophil% 0.3 % (0-1); Eosinophil# 0.24 X10^3/uL; Eosinophils% 3.1 % (0-5); Hematocrit 35.3 % (37-47); Hemoglobin 11.5 g/dl (12.0-15.0); Lymphocyte % 23.2 % (19-41); Mean Corp Hgb Conc 32.6 g/gl (32-36); Mean Corpuscular Volume 92.2 fL (81-99); Mean Platelet Vol. 9.5 fl (6.2-12.0); Monocyte# 0.97 X10^3/uL; Monocyte% 12.5 % (0-10); Neutrophil # 4.71 X10^3/uL (2.7-7.7); Neutrophil % 60.8 % (47-70); Platelet Count 246 K/mm3 (150-450); RBC Distribution Width CV 13.8 % (11.6-14.6); Red Blood Count 3.83 M/mm3 (4.2-5.4); White Blood Count 7.8 K/mm3 (4.4-11.0)
[2018-05-02 06:08] LABS: POSITIVE COUNT NO; POSITIVE DIFFERENTIAL NO; POSITIVE MORPHOLOGY NO
[2018-05-02 06:15] LABS: Anion Gap 11 (5-15); BUN 19 mg/dL (7-18); BUN/Creat Ratio 19.8 RATIO (10-20); Calcium,Total 8.7 mg/dL (8.5-10.1); Chloride 109 mmol/L (98-107); Cholesterol 150 mg/dL (200); Creatinine, Serum 0.96 mg/dL (0.55-1.02); EST Glomerular Filtration Rate 59 mL/min (>60); Est Glom Filt Rate - Afr Amer 72 mL/min (>60); Estimated Creatinine Clearance 40.63 ml/min; Glucose 100 mg/dL (74-106); High Density Lipoprotein 52 mg/dL; Potassium 3.8 mmol/L (3.5-5.1); Sodium Level 143 mmol/L (136-145); Triglycerides 142 mg/dL; Very Low Density Lipoprotein 28 mg/dL (5-40)
--- NOTE | 2018-05-02 11:56 | STRESSREP ---
Stress Test Report Pharmacologic myocardial perfusion stress test. 82-year old lady with a history of hypertension hyperlipidemia chronic kidney disease and chest pain. Stress protocol: Resting EKG demonstrates normal sinus rhythm with a rate of 71 bpm left bundle branch block pattern is noted resting blood pressure is 142/74 mmHg. 0.4 mg of regadenoson was infused per usual protocol fluid Intravenous saline flush injection continuous EKG monitoring was performed. The maximal heart rate was 93 bpm which was 66% maximal protected heart rate and maximum workload was 1 metabolic equivalent. At rest there were no ST or T wave changes noted to suggest abnormal flow reserve a left bundle branch block pattern was noted throughout. The resting blood pressure was 142/74 with a final blood pressure 122/80. Myocardial perfusion protocol. 11.8 mCi of technetium 99m sestamibi was injected at rest. 0.4 mg of regadenoson was infused per usual protocol for confusion 33.3 mCi of technetium 99m sestamibi was injected and stress images were obtained stress and rest images were reconstructed and compared in the short axis vertical and horizontal long axis. Gated images were also obtained the next Perfusion SPECT analysis: Review of the stress images demonstrate normal uptake of tracer noted in all areas of myocardium except for the apex with a small defect noted. This appears to be present on the stress and resting just to a similar extent. A previous apical infarct cannot be completely excluded. Gated SPECT analysis: The gated ejection fraction is noted to be 78%. Conclusion: Pharmacologic myocardial perfusion stress test with no obvious evidence of ischemia. Previous apical infarct cannot be completely excluded Left bundle branch block pattern. Preserved ejection fraction
[2018-05-02] MEDS: amLODIPine 10 MG Tablet PO (12:47)
[2018-05-02] MEDS: APIXABAN 2.5 MG TABLET PO (12:47)
[2018-05-02] MEDS: Metoprolol(XL)Succ 50 MG Tablet PO (12:48)
[2018-05-02] MEDS: 0.9% NaCl Peripheral Flush Adult/Peds IV (12:50)
--- NOTE | 2018-05-02 16:12 | DCINST_ITS ---
- Discharge Diagnoses Current Active Problems: Current Active and Chronic Problems Atrial fibrillation with RVR (Acute) History of hypertension (Chronic) History of hypercholesterolemia (Chronic) You will use the following diet at home:: Cardiac Your food should be the consistency of: Regular Your liquids should be the consistency of: Regular/Thin Discharge Activity: Return to Normal Activity Call your doctor if you observe: Fever of 101 or Higher, Shortness of breath, Dizziness, Fainting spells, Swelling in the ankles, Chest pain, - - Fever, shaking chills, increasing redness of the right wrist or increased swelling. Bloody noses, blood in the urine, blood from the rectum, vomiting blood, large bruises. Additional Instructions: The stress test was negative and there is no evidence that you have any significant coronary artery disease. The ultrasound of the heart(also called an Echocardiogram) shows your heart squeezes normally and there is no significant disease in the valves of your heart. There is enlargement of the left upper chamber ( called the atrium ) and this can sometimes cause the AFIB...the problem with the rhythm of the heart you had at admission. AFIB is a risk factor for strokes so you are being sent home with a prescription for Eliquis which is an anticoagulant. You will take it twice a day. Keep an eye on the red area at the site of the IV on the R wrist......I think the redness is due to superficial thrombophlebitis from the IV but, it could be an infection....they can look the same and be very hard to distinguish. If the redness is getting bigger or the pain is increasing or you have fevers call Dr. Hebert or come to the ED to be evaluated. I increased the potassium to twice a day and Dr. Hebert will probably want to check some lab on you next week when you see him. It was a pleasure to meet you Tala...take care! Pending Tests on Discharge: none Allergies/Adverse Reactions: Allergies meperidine HCl [From Demerol] Allergy (Verified 04/30/18 18:31) Low blood pressure Penicillins [PCN] Allergy (Verified 04/30/18 18:31) Anaphylaxis Sulfa (Sulfonamide Antibiotics) Allergy (Verified 04/30/18 18:31) Hives Medications to take at Discharge Atorvastatin Calcium [Lipitor] 10 mg PO QHS 03/31/14 Aspirin [Aspirin, Baby] 81 mg PO DAILY@0800 06/04/14 Metoprolol Succinate [Toprol Xl] 25 mg PO QHS 05/14/16 Metoprolol(XL)Succ [Toprol Xl (Beta Garrett)] 50 mg PO DAILY 05/14/16 Potassium Chloride [K-Dur] 20 meq PO DAILY 05/14/16 Cholecalciferol (VIT D3) [Vitamin D3] 2,000 unit PO DAILY 05/07/17 Amlodipine Besylate 10 mg PO DAILY 04/30/18 Apixaban [Eliquis] 2.5 mg PO BID #60 tablet 05/02/18 Potassium Chloride [K-Dur] 20 meq PO BID #60 tablet 05/02/18 The following prescriptions were given: Apixaban [Eliquis] 2.5 mg PO BID #60 tablet Potassium Chloride [K-Dur] 20 meq PO BID #60 tablet Primary Care Physician: Denny Case MD [Primary Care Provider] - Please follow up with your Primary Care Physician in: 1 week Test Results: Test results from this visit will be discussed in further detail at your follow- up appointment, if applicable. Proposed Discharge Date: 05/02/18
--- NOTE | 2018-05-02 16:30 | PCM.DC.SUM ---
Discharge Date and Diagnosis - Problem List Patient Problems: Active and Suspected Problems Superficial thrombophlebitis of arm (Acute) Hypokalemia (Acute) Date of Admission: 04/30/18 Date of Discharge: 05/02/18 - Primary Discharge Diagnosis Active and Suspected Problems Atrial fibrillation with RVR (Acute) Hypokalemia (Acute) Superficial thrombophlebitis of Right arm at the wrist(Acute) - Secondary Discharge Diagnosis Chronic Problems Left bundle branch block (Chronic) Hyperlipidemia (Chronic) Chronic renal failure, stage 3 (moderate) (Chronic) Left atrial enlargement (Chronic) History of hypertension (Chronic) History of hypercholesterolemia (Chronic) Hospital Course and Treatment Imaging Results: Clinical Impression(s) from Imaging Studies Chest X-Ray 04/30/18 18:54 IMPRESSION: No acute cardiopulmonary pathology Electronically Signed: Celio Gauthier MD at 19:37 EST , Service support , Laboratory Results - last 24 hr 05/02/18 05/02/18 05/02/18 05:00 05:00 05:00 WBC 7.8 RBC 3.83 L Hgb 11.5 L Hct 35.3 L MCV 92.2 MCH 30.0 MCHC 32.6 RDW 13.8 RDW Differential 46.0 H Plt Count 246 MPV 9.5 Immature Gran % (Auto) 0.100 Neut % (Auto) 60.8 Lymph % (Auto) 23.2 [place] % (Auto) 12.5 H Eos % (Auto) 3.1 Baso % (Auto) 0.3 Absolute Neuts (auto) 4.7 Absolute Lymphs (auto) 1.80 Total Counted Not Reportable PT 15.0 H INR 1.2 APTT 33.1 Sodium 143 Potassium 3.8 Chloride 109 H Carbon Dioxide 23.0 Anion Gap 11 BUN 19 H Creatinine 0.96 Estim Creat Clear Calc 40.63 Est GFR (MDRD) Af Amer 72 Est GFR (MDRD) Non-Af 59 L BUN/Creatinine Ratio 19.8 Glucose 100 Calcium 8.7 Magnesium 2.0 Triglycerides 142 Cholesterol 150 LDL Cholesterol 70 VLDL Cholesterol 28 HDL Cholesterol 52 none Operations: None Procedures: 2-D Echocardiogram - Interpretation Summary Left ventricular systolic function is normal. The estimated ejection fraction is 55 %. Septal motion consistent with IVCD. The left atrium is moderately enlarged. There is mild mitral annular calcification. Trivial mitral valve insufficiency. Trivial tricuspid valve insufficiency. Mild focal aortic valve calcification. Mild (1+) aortic valve insufficiency. Mild (1+) pulmonic valve insufficiency. Mildly dilated aortic root. Right ventricular systolic pressure estimated to be 25 mmHg. Diastolic function is indeterminate., Stress test - Conclusion: Pharmacologic myocardial perfusion stress test with no obvious evidence of ischemia. Previous apical infarct cannot be completely excluded Left bundle branch block pattern. Preserved ejection fraction Nuclear ejection fraction is 78% Summary of Care Provided: The patient is an 82-year-old female with a past medical history of hypertension, left bundle branch block, chronic renal failure stage III and hyperlipidemia who presented to the emergency department at [facility] on 04/30/2018 complaining of a fast pulse. The heart rate on her blood pressure machine was 123. She denied chest pain, lightheadedness, nausea/vomiting. EKG in the emergency department showed atrial fibrillation with rapid ventricular response and a LBBB. She was given IV metoprolol in the emergency department and Eliquis 5 mg x1. She converted to normal sinus rhythm while in the emergency department but, was going in and out once she arrived on PCU. She had been taking Metoprolol XL 75 mg daily at home (50 in the AM and 25 at HS). Lab at admission showed an unremarkable CBC and potassium was low at 3.2. The BUN was 23 with a creatinine of 1.28 which is within her baseline. Magnesium was 1.7 and the troponin was less than 0.015. TSH was 4.92. Chest x-ray showed no infiltrates, pleural effusions or pulmonary vascular congestion. There was no cardiomegaly. She was admitted to a monitored bed on PCU and potassium and magnesium were supplemented. Eliquis 2.5 mg BID was initiated. An ECHO was ordered and showed a 55% ejection fraction with moderate left atrial enlargement and no significant valvular heart disease. The aortic root was mildly dilated and the right ventricular systolic pressure was estimated at 25. Diastolic function was indeterminate. She converted to NSR following supplementation of the potassium and Mag. A chemical nuclear stress test was done on 05/02/2018 and was negative for ischemia and showed a nuclear ejection fraction of 78%. She was discharged home on apixaban 2.5 mg twice daily and K-Dur 20 milliequivalents twice daily ( was previously on 20 MEQ once daily). she is going to follow up with Dr. Case in 1 week and will need to have the potassium and the magnesium rechecked. Would try and maintain the K+ at around 4 and the mag at 2. At the time of DC she had redness, warmth to touch and pain at the R wrist (at the site of a previous IV). There was no purulent DC and there was tenderness over the vein which had a small area of thrombosis. She was instructed to apply warm compresses 2-3 times a day. If the redness increases or she develops fevers she will call Dr. Case or return to the ED. - Physical Exam General: Alert, Oriented x3, Cooperative, No apparent distress, Well developed, Well nourished, sitting in the recliner HEENT: Atraumatic, PERRLA, EOMI, Normocephalic Oral: Dry Mucosa Neck: Supple, No JVD, Negative Carotid Bruits Lungs: Clear to auscultation, Normal air movement, No rhonchi, No wheeze, No rales Cardiovascular: Regular rate, Regular Rhythm, Normal S1, Normal S2, Murmur - 1-2/6 VENUS at the second RICS with no radiation, No rub noted, No Gallop Abdomen: Bowel Sounds Present, Soft, Non Tender, Non-Distended Extremities: No clubbing, No cyanosis, No edema, Diminished Peripheral Pulses Skin: the skin over the R wrist is red, warm to touch and painful to palpation.....suspect superficial thrombophlebitis rather than cellulitis Neurological: Cranial nerves II-XII grossly intact, Neuro grossly intact Psych/Mental Status: Normal Affect, Appropriate This note was generated with [employer] dictation software. It may contain incorrect words, spelling, and punctuation that were not noted in checking the note before signing. Patient Problems: Active and Suspected Problems Superficial thrombophlebitis of arm (Acute) Hypokalemia (Acute) - Physical Exam Vital Signs Temp Pulse Resp BP Pulse Ox 98.3 F 80 16 120/54 L 100 05/02/18 12:00 05/02/18 15:27 05/02/18 12:00 05/02/18 12:00 05/02/18 12:00 Oxygen Delivery Method Room Air Weight: 123 lb 7.342 oz Body Mass Index (BMI) 25.8 Finger Stick Blood Glucose 169 Intake and Output for Last 24 Hours 04/30/18 05/01/18 05/02/18 23:59 23:59 23:59 Intake Total 840 / 840 480 / 480 Balance 840 / 840 480 / 480 Laboratory Tests Past 24 Hrs 05/02/18 05/02/18 05/02/18 05:00 05:00 05:00 WBC 7.8 RBC 3.83 L Hgb 11.5 L Hct 35.3 L MCV 92.2 MCH 30.0 MCHC 32.6 RDW 13.8 RDW Differential 46.0 H Plt Count 246 MPV 9.5 Immature Gran % (Auto) 0.100 Neut % (Auto) 60.8 Lymph % (Auto) 23.2 [place] % (Auto) 12.5 H Eos % (Auto) 3.1 Baso % (Auto) 0.3 Absolute Neuts (auto) 4.7 Absolute Lymphs (auto) 1.80 Total Counted Not Reportable PT 15.0 H INR 1.2 APTT 33.1 Sodium 143 Potassium 3.8 Chloride 109 H Carbon Dioxide 23.0 Anion Gap 11 BUN 19 H Creatinine 0.96 Estim Creat Clear Calc 40.63 Est GFR (MDRD) Af Amer 72 Est GFR (MDRD) Non-Af 59 L BUN/Creatinine Ratio 19.8 Glucose 100 Calcium 8.7 Magnesium 2.0 Triglycerides 142 Cholesterol 150 LDL Cholesterol 70 VLDL Cholesterol 28 HDL Cholesterol 52 Discharge Activity: Return to Normal Activity Call your doctor if you observe: Fever of 101 or Higher, Shortness of breath, Dizziness, Fainting spells, Swelling in the ankles, Chest pain, - - Fever, shaking chills, increasing redness of the right wrist or increased swelling. Bloody noses, blood in the urine, blood from the rectum, vomiting blood, large bruises. Home Medications: Medications to take at Discharge Atorvastatin Calcium [Lipitor] 10 mg PO QHS 03/31/14 Aspirin [Aspirin, Baby] 81 mg PO DAILY@0800 06/04/14 Metoprolol Succinate [Toprol Xl] 25 mg PO QHS 05/14/16 Metoprolol(XL)Succ [Toprol Xl (Beta Garrett)] 50 mg PO DAILY 05/14/16 Potassium Chloride [K-Dur] 20 meq PO DAILY 05/14/16 Cholecalciferol (VIT D3) [Vitamin D3] 2,000 unit PO DAILY 05/07/17 Amlodipine Besylate 10 mg PO DAILY 04/30/18 Apixaban [Eliquis] 2.5 mg PO BID #60 tablet 05/02/18 Potassium Chloride [K-Dur] 20 meq PO BID #60 tablet 05/02/18 Following Prescrptions Were Given to Patient: Apixaban [Eliquis] 2.5 mg PO BID #60 tablet Potassium Chloride [K-Dur] 20 meq PO BID #60 tablet Primary Care Physician: Denny Case MD [Primary Care Provider] - Please follow up with your Primary Care Physician in: 1 week Disposition: Home Minutes spent on discharge:: 35 Patient Condition:: Good Medical Necessity - Tobacco Use Smoking Status: Never smoker Tobacco Use: Non-smoker Meaningful Use Info Meaningful Use Diagnoses (Choose all that apply): None applicable Code Visit Inpatient E&M: 84328 Disch Hosp
== END 2018-05-02 18:08 | disposition home or self-care (01) | DRG 310 ==
LOC: ED 21:39 → PCU 22:04
PROVIDERS: Admitting Provider Hospitalist; Emergency Provider Emergency Medicine; Family Provider Family Medicine; PCP Family Medicine; Visit Provider Internal Medicine
DX: I48.91 Unspecified atrial fibrillation (principal); I12.9 Hypertensive chronic kidney disease with stage 1 through stage 4 chronic kidney disease, or unspecified chronic kidney disease; N18.3 Chronic kidney disease, stage 3 (moderate); E78.5 Hyperlipidemia, unspecified; E87.6 Hypokalemia; E55.9 Vitamin D deficiency, unspecified; I44.7 Left bundle-branch block, unspecified; I49.3 Ventricular premature depolarization; I49.1 Atrial premature depolarization; I80.8 Phlebitis and thrombophlebitis of other sites
CPT/HCPCS: 36415; 71045; 78452; 80048; 80061; 83735; 84443; 84484; 85025; 85610; 85730; 93005; 93017; 93306; 97161; 97165; 97802; 99285; A9500; A4216; J2785

== ENCOUNTER 2020-04-05 17:03 | Emergency (ER) | payer MEDICARE, OTHER, SELFPAY ==
[2018-04-30 22:33] VITALS: BMI 25.8
[2020-04-05 17:04] VITALS: BP 136/58; PULSE 84; RESP 16; TEMP 36.8; O2SAT 99; BMI 25.2
--- NOTE | 2020-04-05 17:15 | EKG12_ITS ---
Test Reason : HIGH BP Blood Pressure : / mmHG Vent. Rate : 077 BPM Atrial Rate : 077 BPM P-R Int : 162 ms QRS Dur : 130 ms QT Int : 434 ms P-R-T Axes : 051 -36 095 degrees QTc Int : 491 ms Normal sinus rhythm Left axis deviation Left bundle branch block Abnormal ECG Confirmed by MANOLO SOMMER, CARLOS ([id number]), editorial writer KAREN DAIGLE ([id number]) on 04/06/2020 1:15:21 PM Referred By: ELIZABETH Confirmed By:CARLOS FRENCH MD
--- NOTE | 2020-04-05 17:17 | ED.VIS.GEN ---
History of Present Illness Chief Complaint: Hypertension Informant: Patient Onset: Today Narrative: Presents due to concern for high blood pressure. She checked her blood pressure multiple times today and it kept climbing, most recently up to 151 systolic. She states she was concerned about this so she came in to be checked. She is a history of A. fib and wanted to be sure she was not back in A. fib. No recent changes to her blood pressure medications. She states usually her blood pressures in the 120s and 130s. She otherwise has no complaints. She denies chest pain or shortness of breath. She denies headache. - Past Medical History (1) A-fib Status: Chronic (2) Chronic renal failure, stage 3 (moderate) Status: Chronic (3) Hyperlipidemia Status: Chronic (4) Left bundle branch block Status: Chronic Past Medical History - Allergies and Home Meds Allergies/Adverse Reactions: Allergies meperidine HCl [From Demerol] Allergy (Verified 04/05/20 17:07) Low blood pressure Penicillins [PCN] Allergy (Verified 04/05/20 17:07) Anaphylaxis Sulfa (Sulfonamide Antibiotics) Allergy (Verified 04/05/20 17:07) Hives Primary Care Physician: Denny Case MD [Primary Care Provider] - Prior records reviewed: Yes Surgical History: appendectomy, cholecystectomy, tonsillectomy Smoking Status: Never smoker - Family History Maternal Family History: Reports: Diabetes Paternal Family History: Reports: - - Parkinson disease; bowel obstruction. Review of Systems General: Denies: Chills, Fever Eyes: Denies: Visual changes - bilaterally ENT: Denies: Bilateral ear pain Cardiovascular: Denies: Chest pain Respiratory: Denies: Dyspnea, Cough Gastrointestinal: Denies: Abdominal pain Musculoskeletal: Denies: Swelling Skin: Denies: Rash Neurological: Denies: Headache Hematologic: Denies: Easy bruising, Easy bleeding Allergy: Denies: Uticaria Physical Exam Vital Signs/Narrative: Vital Signs Temp Pulse Resp BP Pulse Ox 04/05/20 17:04 98.3 F 84 16 136/58 H 99 Inital Vital Signs reviewed: Yes General: Well nourished, Well developed Head: Normocephalic ENT: Moist mucous membranes Neck: Supple Cardiovascular: Regular rate, Regular rhythm Respiratory: No distress, CTA bilaterally Abdomen: Soft, Nontender Extremities: Nontender Skin: Normal color Neurological: Alert, Oriented x3, Normal Strength, Normal Sensation Psychological: Normal affect Diagnostic/Tx/Re-eval - EKG Initial EKG Interpretation: Sinus Rhythm - Sinus at 77 with no acute ischemia. Left bundle branch block present. - Medical Decision Making Patient is observed on cardiac rehab nurse. Blood pressure has fluctuated between 129 and 151 systolic. She is asymptomatic with this. I did advise her that I would rather let her run a little bit high then adjust her medications and have her drop too low and become dizzy. She voices understanding and agreement. She is due to take her metoprolol at bedtime tonight and will continue that. She will talk to her doctor tomorrow about potential changes in her medications. ED Disposition - Plan for ED Patient: Disposition: Home or Assisted Living Diagnosis: Hypertension Instructions: ED Hypertension, Established Referrals: Denny Case MD [Primary Care Provider] - 3-5 Days
[2020-04-05 18:00] VITALS: BP 129/66; PULSE 76; RESP 12; O2SAT 100
[2020-04-05 18:21] VITALS: BP 160/66; PULSE 79; RESP 17; O2SAT 98
== END 2020-04-05 18:22 | disposition home or self-care (01) ==
PROVIDERS: Emergency Provider Emergency Medicine; PCP Family Medicine
DX: I10 Essential (primary) hypertension (principal); E78.5 Hyperlipidemia, unspecified; I48.91 Unspecified atrial fibrillation; Z79.02 Long term (current) use of antithrombotics/antiplatelets; Z79.899 Other long term (current) drug therapy
CPT/HCPCS: 93005; 99283; A4216

== ENCOUNTER 2021-02-09 23:59 | Emergency (ER) | payer MEDICARE, OTHER, SELFPAY ==
[2021-02-10] VITALS: BP 143/74; PULSE 77; RESP 16; TEMP 36.4; O2SAT 100; BMI 22.6
--- NOTE | 2021-02-10 00:08 | CT_ITS ---
STUDY: CT BRAIN WITHOUT CONTRAST REASON FOR EXAM: Female, 85 years old. Pain after trauma RADIATION DOSAGE (If Supplied By Facility): CTDIvol = ( 44.99 ) mGy, DLP = ( 745.49 ) mGycm TECHNIQUE: Transaxial CT imaging of the brain was performed without administration of intravenous contrast material. Individualized dose optimization techniques were used for this CT. COMPARISON: No relevant priors. FINDINGS: There is no intra-/extra-axial fluid collection, mass effect, or midline shift. Focal encephalomalacia noted in the right cerebellar hemisphere. The bustillos/white matter junction is preserved. Hypoattenuation of periventricular and subcortical white matter suggestive of chronic small vessel ischemic disease. Mild diffuse parenchymal volume loss is noted. There is vascular calcification. The basal cisterns are patent. A small polyp versus retention cyst in the left maxillary sinus. Other paranasal sinuses and mastoid air cells are clear. The calvarium is intact. CT/Brain/Head without Contrast IMPRESSION: No acute intracranial injury. Electronically Signed: Santosh Duran MD at 1:55 EST Tel , Service support ,
[2021-02-10] MEDS: Acetaminophen 325 MG Tablet 650 MG PO (00:13)
--- NOTE | 2021-02-10 00:33 | EDS_ITS ---
HPI History of Present Illness Chief Complaint: Head Injury Informant: patient Onset/Context/Timing Onset: Yesterday Current Severity: Mild Maximum Severity: Mild Narrative Narrative: Patient presents secondary to left-sided headache after hitting her head on a wood window seat yesterday around 4 PM. Patient is on Eliquis so she is concerned. No vision change. No nausea or vomiting. Patient states she did notice that her blood pressure seems to be higher than normal tonight and she is not sure if it is related to anxiety or from her head trauma. [facility] Medical History Afib HTN (hypertension) Hypercholesteremia Left atrial enlargement Left bundle branch block (LBBB) Renal failure Home Medications atorvastatin 10 mg PO QHS 03/31/14 [History Last Taken Unknown] aspirin 81 mg PO DAILY@0800 06/04/14 [History Last Taken Unknown] metoprolol succinate 50 mg PO DAILY 05/14/16 [History Last Taken Unknown] metoprolol succinate [Toprol XL] 25 mg PO QHS 05/14/16 [History Last Taken Unknown] potassium chloride [Klor-Con M20] 20 meq PO DAILY 05/14/16 [History Last Taken Unknown] cholecalciferol (vitamin D3) [Vitamin D3] 2,000 unit PO DAILY 05/07/17 [History Last Taken Unknown] amlodipine 10 mg PO DAILY 04/30/18 [History Last Taken Unknown] apixaban [Eliquis] 2.5 mg PO BID #60 tablet 05/02/18 [Rx Last Taken Unknown] potassium chloride [Klor-Con M20] 20 meq PO BID #60 tablet 05/02/18 [Rx Last Taken Unknown] Allergy/AdvReac Type Severity Reaction Status Date / Time meperidine HCl [From Demerol] Allergy Low blood Verified 02/10/21 00:02 pressure Penicillins [PCN] Allergy Anaphylaxis Verified 02/10/21 00:02 Sulfa (Sulfonamide Allergy Hives Verified 02/10/21 00:02 Antibiotics) Social History Smoking Status: Never smoker ROS ROS ED Constitutional Constitutional ED: Denies chills or fever(s) Eyes Eyes: Denies change in vision ENT ENT ED: Denies sore throat Cardiovascular Cardiovascular: Denies chest pain Respiratory/Chest Respiratory/Chest: Denies cough or dyspnea Gastrointestinal Gastrointestinal: Denies abdominal pain, nausea or vomiting Musculoskeletal Musculoskeletal: Denies back pain or neck pain Integumentary Denies Abrasions or rash Neurologic Neurologic: Reports headache(s); Denies weakness Psychiatric Psychiatric: Reports anxiety Allergic/Immunologic Allergic/Immunologic ED: Denies urticaria EXAM Physical Exam Const Vital Signs: 02/10/21 00:00 02/10/21 00:06 Temperature 97.6 F L Temperature Source Temporal Pulse Rate 77 Respiratory Rate 16 Respiratory Effort Normal Non-Labored Respiratory Depth Normal Respiratory Pattern Normal Blood Pressure 143/74 H Blood Pressure Mean 97 Pulse Ox 100 Oxygen Delivery Method Room Air Positive well nourished and well developed General Appearance ED: well developed HEENT Reports moist mucous membranes HEENT Narrative: Mild left parietal scalp tenderness. No ecchymosis or hematoma noted. No laceration or abrasion. Negative for trauma Eyes PERRL and EOMs intact bilaterally Neck supple Neck Narrative: No C-spine tenderness. Chest Wall inspection of chest normal and palpation of chest normal Resp normal respiratory effort and clear to auscultation bilaterally Cardio regular rate and regular rhythm GI normal to inspection, nondistended, normoactive bowel sounds and non-tender Palpation: soft Extremity normal to inspection Neuro oriented x3 and no sensory deficits noted Sensorium / Orientation: alert Motor Exam: strength 5/5 throughout Psych mental status grossly normal Skin no rashes or lesions noted MDM MDM MDM Narrative Medical decision making narrative: Patient given Tylenol for headache. CT head obtained. Treatment and Re-Evaluation Comments:: Head CT per my interpretation is unremarkable. If radiologist interpretation agrees patient be discharged home with supportive care. Oncoming physician will check final report. Discharge Plan Triage Chief Complaint: Head Injury ED Provider: Caitie Adams Dx/Rx/DC Orders Clinical Impression: Closed head injury Instructions: ED Head Injury (Adult) Prescriptions: No Action atorvastatin 10 MG tablet 10 mg PO QHS RF: 0 aspirin 81 MG Tab.Chew 81 mg PO DAILY@0800 RF: 0 metoprolol succinate 50 MG tablet 50 mg PO DAILY RF: 0 metoprolol succinate [Toprol XL] 50 MG Tab.Er.24h 25 mg PO QHS RF: 0 potassium chloride [Klor-Con M20] 20 MEQ tablet 20 meq PO DAILY RF: 0 cholecalciferol (vitamin D3) [Vitamin D3] 1,000 UNIT tablet 2,000 unit PO DAILY RF: 0 amlodipine 10 MG tablet 10 mg PO DAILY RF: 0 potassium chloride [Klor-Con M20] 20 MEQ tablet 20 meq PO BID Qty: 60 RF: 0 apixaban [Eliquis] 2.5 MG tablet 2.5 mg PO BID Qty: 60 RF: 0 Primary Care Provider: Denny Case Referrals: Denny Case MD [Primary Care Provider] - 3-5 Days if not improving Disposition Disposition: Home, Self Care
== END 2021-02-10 02:02 | disposition home or self-care (01) ==
PROVIDERS: Emergency Provider Emergency Medicine; PCP Family Medicine
DX: S09.90XA Unspecified injury of head, initial encounter (principal); I48.91 Unspecified atrial fibrillation; I10 Essential (primary) hypertension; E78.00 Pure hypercholesterolemia, unspecified; Z79.02 Long term (current) use of antithrombotics/antiplatelets; Z79.899 Other long term (current) drug therapy; W22.09XA Striking against other stationary object, initial encounter; Y93.89 Activity, other specified; Y92.009 Unspecified place in unspecified non-institutional (private) residence as the place of occurrence of the external cause; Y99.8 Other external cause status
CPT/HCPCS: 70450; 99283

== ENCOUNTER 2022-02-21 19:28 | Emergency (ER) | payer MEDICARE, OTHER, SELFPAY ==
[2022-02-21 19:29] VITALS: BP 139/65; PULSE 107; RESP 18; TEMP 37.9; O2SAT 94; BMI 23.2
[2022-02-21 19:43] VITALS: BP 138/70; PULSE 101; O2SAT 100
--- NOTE | 2022-02-21 19:59 | EDS_ITS ---
HPI <AGNES Ken - Last Filed: 02/21/22 21:33> History of Present Illness Chief Complaint: Hypertension Narrative Narrative: Patient presents today because she is concerned about an elevated blood pressure reading that she obtained earlier. She states her blood pressure was 146/63 and she had a pulse of 112 bpm. She reports her heart rate felt irregular and she was concerned that her heart rate was high. Patient does have a history of A. fib. She states her PCP recently discontinued her 10 mg of lisinopril daily. Patient states she also felt very cold earlier but denies recent illness and fever. She denies shortness of breath, chest pain, abdominal pain, dysuria. PFSH <AGNES Ken - Last Filed: 02/21/22 21:33> [facility] Medical History Afib HTN (hypertension) Hypercholesteremia Left atrial enlargement Left bundle branch block (LBBB) Renal failure Home Medications atorvastatin 10 mg tablet 10 mg PO QHS cholesterol 03/31/14 [History Last Taken Unknown] aspirin 81 mg chewable tablet 81 mg PO DAILY@0800 [facility] 06/04/14 [History Last Taken Unknown] metoprolol succinate 50 mg tablet,extended release 24 hr (Toprol XL) 50 mg PO QHS blood pressure 05/14/16 [History Last Taken Unknown] potassium chloride 20 mEq tablet,extended release(part/cryst) (Klor-Con M) 20 meq PO DAILY supplement 05/14/16 [History Last Taken Unknown] cholecalciferol (vitamin D3) 25 mcg (1,000 unit) tablet (Vitamin D3) 2,000 unit PO DAILY vitamin 05/07/17 [History Last Taken Unknown] amlodipine 10 mg tablet 10 mg PO DAILY blood pressure 04/30/18 [History Last Taken Unknown] apixaban 2.5 mg tablet (Eliquis) 2.5 mg PO BID ##60 05/02/18 [Rx Last Taken Unknown] Allergy/AdvReac Type Severity Reaction Status Date / Time meperidine HCl [From Demerol] Allergy Low blood Verified 02/21/22 19:41 pressure Penicillins [PCN] Allergy Anaphylaxis Verified 02/21/22 19:41 Sulfa (Sulfonamide Allergy Hives Verified 02/21/22 19:41 Antibiotics) Social History Smoking Status: Never smoker ROS <AGNES Ken - Last Filed: 02/21/22 21:33> ROS ED Constitutional Constitutional ED: Reports chills; Denies fever(s) or sweats Eyes Eyes: Denies blurry vision or change in vision ENT ENT ED: Denies rhinorrhea or sore throat Cardiovascular Cardiovascular: Reports palpitations; Denies chest pain or racing heartbeat Respiratory/Chest Respiratory/Chest: Denies cough, dyspnea or dyspnea on exertion Gastrointestinal Gastrointestinal: Denies abdominal pain, diarrhea, nausea or vomiting Genitourinary Genitourinary ED: Denies dysuria, hematuria or urinary frequency Musculoskeletal Musculoskeletal: Denies back pain, myalgias or neck pain Integumentary Denies abscess, Abrasions or rash Neurologic Neurologic: Denies headache(s), paresthesias or weakness Psychiatric Psychiatric: Denies anxiety, depression or suicidal ideation EXAM <AGNES Ken - Last Filed: 02/21/22 21:33> Physical Exam Const Vital Signs: 02/21/22 19:29 02/21/22 19:43 02/21/22 19:43 Temperature 100.3 F H Temperature Source Temporal Pulse Rate 107 H 101 H Respiratory Rate 18 Respiratory Effort Normal Non-Labored Respiratory Pattern Normal Blood Pressure 139/65 H 138/70 H Blood Pressure Mean 89 92 Pulse Ox 94 100 Oxygen Delivery Method Room Air Room Air 02/21/22 20:49 Temperature 101.3 F H Temperature Source Pulse Rate 96 Respiratory Rate Respiratory Effort Respiratory Pattern Blood Pressure 124/74 H Blood Pressure Mean Pulse Ox Oxygen Delivery Method Positive well nourished and well developed General Appearance ED: well developed and NAD HEENT Reports moist mucous membranes Negative for trauma Eyes PERRL and EOMs intact bilaterally Neck no lymphadenopathy and supple Chest Wall inspection of chest normal and palpation of chest normal Resp normal respiratory effort and clear to auscultation bilaterally Cardio regular rate, regular rhythm and no murmurs GI non-tender, non-distended and no masses Palpation: soft Extremity normal to inspection Neuro oriented x3, CN's II-XII intact bilaterally and no sensory deficits noted Sensorium / Orientation: alert Motor Exam: strength 5/5 throughout Psych mental status grossly normal Skin no rashes or lesions noted, no wounds and skin turgor normal <Kulwant Castillo MD - Last Filed: 02/21/22 21:50> Physical Exam Const Vital Signs: 02/21/22 19:29 02/21/22 19:43 02/21/22 19:43 Temperature 100.3 F H Temperature Source Temporal Pulse Rate 107 H 101 H Respiratory Rate 18 Respiratory Effort Normal Non-Labored Respiratory Pattern Normal Blood Pressure 139/65 H 138/70 H Blood Pressure Mean 89 92 Pulse Ox 94 100 Oxygen Delivery Method Room Air Room Air 02/21/22 20:49 Temperature 101.3 F H Temperature Source Pulse Rate 96 Respiratory Rate Respiratory Effort Respiratory Pattern Blood Pressure 124/74 H Blood Pressure Mean Pulse Ox Oxygen Delivery Method [facility] <AGNES Ken - Last Filed: 02/21/22 21:33> [facility] Narrative Medical decision making narrative: Patient's blood pressure here remained stable and at its highest was 139/65 upon arrival and was 124/74 on discharge. Patient's pulse was 96 bpm on discharge. Temperature was slightly elevated upon arrival, however, this was obtained via a forehead reading and patient had a hat on. Upon reexamination orally it was below 99 ?F. Patient was told to alternate between Tylenol and ibuprofen if fever develops. Patient told to follow-up with PCP for hypertension management. Patient is agreeable with plan. I am comfortable with patient discharging home. EKG Initial EKG: Comments: 96 bpm. Normal sinus rhythm. Left axis deviation, left bundle branch block. No ST elevation. This EKG has also been reviewed by attending ED physician. Prior EKG tracings: available for review Prior: Unchanged <Kulwant Castillo MD - Last Filed: 02/21/22 21:50> [facility] Narrative Medical decision making narrative: Patient's blood pressure here remained stable and at its highest was 139/65 upon arrival and was 124/74 on discharge. Patient's pulse was 96 bpm on discharge. Temperature was slightly elevated upon arrival, however, this was obtained via a forehead reading and patient had a hat on. Upon reexamination orally it was below 99 ?F. Patient was told to alternate between Tylenol and ibuprofen if fever develops. Patient told to follow-up with PCP for hypertension management. Patient is agreeable with plan. I am comfortable with patient discharging home. I have personally performed a face to face assessment of the patient and have reviewed the CELESTINO Note. I performed a substantive portion of the visit including all aspects of the following. My guidry findings include: History is recently taken off lisinopril as one of her antihypertensives. Reported blood pressure of 140 systolic and above. Patient also concerned that her heart rate was 112 with history of atrial fibrillation Exam is afebrile. Vital signs noted. Regular rate and rhythm. Lungs clear to auscultation bilaterally. Abdomen soft and nontender. Medical Decision Making: Current blood pressure 139/65, then 124/74. Heart rate normal at 96. Check EKG. Normal sinus rhythm at 96 bpm without ectopy or acute ST changes as interpreted by ED physician. Discharge. Follow-up primary care. Reassurance. Other additions or changes: [None] Discharge Plan Triage Chief Complaint: Hypertension ED Midlevel Provider: Marlen Gordillo ED Provider: Kulwant Castillo Dx/Rx/DC Orders Clinical Impression: History of hypertension, History of atrial fibrillation Instructions: ED Hypertension, Established Prescriptions: No Action atorvastatin 10 MG tablet 10 mg PO QHS aspirin 81 MG tablet,chewable 81 mg PO DAILY@0800 metoprolol succinate [Toprol XL] 50 MG tablet extended release 24 hr 50 mg PO QHS potassium chloride [Klor-Con M20] 20 MEQ tablet 20 meq PO DAILY cholecalciferol (vitamin D3) [Vitamin D3] 1,000 UNIT tablet 2,000 unit PO DAILY amlodipine 10 MG tablet 10 mg PO DAILY Label Comments: TAKE ONE TABLET BY MOUTH EVERY DAY Eliquis 2.5 MG tablet 2.5 mg PO BID Qty: 60 0RF Primary Care Provider: Denny Case Referrals: Denny Case MD [Primary Care Provider] - 5-7 Days Activity Restrictions/Additional Instructions: Please follow-up with PCP. Disposition Disposition: Home, Self Care Discharge Date/Time: 02/21/22 21:06
--- NOTE | 2022-02-21 19:59 | EKG12_ITS ---
Test Reason : HTN Blood Pressure : / mmHG Vent. Rate : 096 BPM Atrial Rate : 096 BPM P-R Int : 162 ms QRS Dur : 130 ms QT Int : 378 ms P-R-T Axes : 033 -41 125 degrees QTc Int : 477 ms Normal sinus rhythm Left axis deviation Left bundle branch block Abnormal ECG Confirmed by MILENA SOMMER, DEEP ([id number]), medical transcription editor KAREN DAIGLE ([id number]) on 02/23/2022 10:17:15 AM Referred By: ELIZABETH Confirmed By:DEEP ABBOTT MD
[2022-02-21 20:49] VITALS: BP 124/74; PULSE 96; TEMP 38.5
--- NOTE | 2022-02-21 20:50 | ED.RN ---
MD AWARE OF TEMP, TOLD PT TO TAKE TYLENOL AT HOME, FOLLOW UP WITH PCP OR RETURN FOR ANY CONCERNS
== END 2022-02-21 21:06 | disposition home or self-care (01) ==
LOC: ED 20:21
PROVIDERS: Emergency Provider Emergency Medicine; PCP Family Medicine; Visit Provider Emergency Medicine
DX: I10 Essential (primary) hypertension (principal); I48.91 Unspecified atrial fibrillation; E78.00 Pure hypercholesterolemia, unspecified; R00.2 Palpitations
CPT/HCPCS: 93005; 99282

== ENCOUNTER 2022-03-11 12:59 | Emergency (ER) | payer MEDICARE, OTHER, SELFPAY ==
[2022-03-11 13:00] VITALS: BP 129/57; PULSE 89; RESP 18; TEMP 36.6; O2SAT 100; BMI 23.2
--- NOTE | 2022-03-11 14:09 | CT_ITS ---
STUDY: CT BRAIN WITHOUT CONTRAST REASON FOR EXAM: Female, 86 years old. An injury due to a fall. RADIATION DOSAGE (If Supplied By Facility): CTDIvol = ( 44.99 ) mGy, DLP = ( 779.24 ) mGycm TECHNIQUE: Transaxial CT imaging of the brain was performed without administration of intravenous contrast material. Individualized dose optimization techniques were used for this CT. COMPARISON: Comparison is made with prior examination of 02/10/2021. FINDINGS: Normal soft tissue structures. Normal calvarium. There is mild cerebral atrophy with widening of the extra-axial spaces and ventricular dilatation. There are areas of decreased attenuation within the white matter tracts of the supratentorial brain, consistent with microvascular disease changes. Normal basal ganglia and thalami. Normal brainstem. There is mild cerebellar atrophy. Stable focal encephalomalacia in the posterior aspect of the right cerebellar hemisphere. There is no intracranial hemorrhage. There are no findings of an acute ischemic infarction. Atherosclerotic calcification of the vertebral arteries and cavernous portions of the internal carotid arteries bilaterally. Nodular mucosal thickening of the maxillary sinuses slightly worse on the left side. Partial opacification of the ethmoid sinuses. CT/Brain/Head without Contrast IMPRESSION: Chronic involutional changes of the brain. Stable changes in the maxillary and ethmoid sinuses. Electronically Signed: Ok Murphy MD at 14:48 EST ,
--- NOTE | 2022-03-11 14:09 | CT_ITS ---
STUDY: CT CERVICAL SPINE WITHOUT CONTRAST REASON FOR EXAM: Female, 86 years old. Neck injury due to a fall. RADIATION DOSAGE (If Supplied By Facility): CTDIvol = ( 14.02 ) mGy, DLP = ( 283.10 ) mGycm TECHNIQUE: High resolution transaxial imaging was performed without contrast material. Sagittal and coronal images were reconstructed. Individualized dose optimization techniques were used for this CT. COMPARISON: None FINDINGS: Normal craniovertebral junction. There are degenerative changes of the anterior atlantoaxial articulation. Normal odontoid process. Normal cervical lordosis. Multilevel spondylosis. C2-3: Moderate degree of disc space narrowing. Facet joint osteoarthritis and hypertrophy on the right side. Uncovertebral arthrosis. Mild degree of bilateral neural foraminal stenosis. C3-4: Moderate degree of disc space narrowing. Uncovertebral arthrosis and hypertrophy worse on the left side. Spondylosis. Uncovertebral arthrosis worse on the left side. C4-5: Mild degree of disc space narrowing. Facet joint osteoarthritis more prominent on the left side. C5-6: Marked degree of disc space narrowing with spondylosis. Uncovertebral arthrosis. Facet joint osteoarthritis bilateral neural foraminal stenosis. C6-7: Normal endplates. Normal disc height and morphology. Normal central canal and intervertebral neuroforamina. C7-T1: Normal endplates. Normal disc height and morphology. Normal central canal and intervertebral neuroforamina. Atherosclerotic plaque formation of the carotid bifurcations. CT/Spine Cervical without Contras IMPRESSION: Multilevel degenerative changes, as described above. Electronically Signed: Ok Murphy MD at 14:53 EST ,
--- NOTE | 2022-03-11 14:13 | EDS_ITS ---
HPI HPI - Fall History of Present Illness Chief Complaint: Fall Informant: patient Narrative Narrative: Patient presents after a fall this morning. She states she was getting out of bed. Normally she puts her hand on the headboard but for some reason did not do that this time. When she got up and turned she just lost her footing and fell. She was not syncopal. She did hit her head but never lost consciousness at any point. There were no dysrhythmias or irregular heartbeats palpitations. No chest pain. Patient is on Eliquis so is at higher risk for injury. She is also on metoprolol. She states that sometimes she has soreness in the back of her head and neck but its not hurting now. She notes that if she lifts her arm way over her head she has a little soreness occasionally in her right shoulder but not with regular motion. She complains of pain over toward the right hip. No pain in the actual thorax or lumbar area. She has been up walking. After the fall she actually got in her car drove to the local store to get some coffee and drove home. She has not been ill recently. No fevers or chills. No new medications. No congestion. No cough. No trouble breathing. No chest pain. No abdominal pain nausea vomiting diarrhea or blood in her stools. No urinary symptoms or blood in the urine. There is no numbness tingling or weakness. [facility] Medical History Afib HTN (hypertension) Hypercholesteremia Left atrial enlargement Left bundle branch block (LBBB) Renal failure Home Medications atorvastatin 10 mg tablet 10 mg PO QHS cholesterol 03/31/14 [History Last Taken Unknown] aspirin 81 mg chewable tablet 81 mg PO DAILY@0800 heart health 06/04/14 [History Last Taken Unknown] metoprolol succinate 50 mg tablet,extended release 24 hr (Toprol XL) 50 mg PO QHS blood pressure 05/14/16 [History Last Taken Unknown] potassium chloride 20 mEq tablet,extended release(part/cryst) (Klor-Con M) 20 meq PO DAILY supplement 05/14/16 [History Last Taken Unknown] cholecalciferol (vitamin D3) 25 mcg (1,000 unit) tablet (Vitamin D3) 2,000 unit PO DAILY vitamin 05/07/17 [History Last Taken Unknown] amlodipine 10 mg tablet 10 mg PO DAILY blood pressure 04/30/18 [History Last Taken Unknown] apixaban 2.5 mg tablet (Eliquis) 2.5 mg PO BID ##60 05/02/18 [Rx Last Taken Unknown] Allergy/AdvReac Type Severity Reaction Status Date / Time meperidine HCl [From Demerol] Allergy Low blood Verified 03/11/22 13:00 pressure Penicillins [PCN] Allergy Anaphylaxis Verified 03/11/22 13:00 Sulfa (Sulfonamide Allergy Hives Verified 03/11/22 13:00 Antibiotics) Social History Smoking Status: Never smoker EXAM Physical Exam Narrative Exam Narrative: Patient is awake alert no acute distress. She states she hit the back of her head but I am not seeing any bruising on the head at this time. No notable tenderness. There is no cervical spine tenderness although she states sometimes it seems to be sore. No anterior facial tenderness. No tenderness to the clavicle shoulders or upper extremities. Her lungs are clear bilaterally. Her heart sounds are regular. She has a history of intermittent atrial fibrillation but sounds quite regular at this time. Peripheral pulses are equal. Her abdomen is completely benign. No pulsatile mass. No tenderness. There is no thoracic or lumbar tenderness. There is a slight tenderness in the left buttock area and greater trochanter but no bruising at this point. No pain with rotation of that joint. There is no tenderness on the right side. No tenderness anywhere else in the legs knees lower legs ankles or feet. I see no sign of contusions abrasions or petechiae in the skin. She is awake alert appropriate without any numbness tingling or weakness. Const Vital Signs: 03/11/22 13:00 03/11/22 13:46 Temperature 97.8 F Temperature Source Temporal Pulse Rate 89 Respiratory Rate 18 Respiratory Effort Normal Non-Labored Respiratory Depth Normal Respiratory Pattern Normal Blood Pressure 129/57 H Blood Pressure Mean 81 Pulse Ox 100 Oxygen Delivery Method Room Air Room Air MDM MDM MDM Narrative Medical decision making narrative: My independent interpretation was done for brain CT that showed no acute process. I see no skull fracture or bleeding. I also did independent her rotation of cervical spine that showed arthritic changes but no acute fracture dislocation or facet abnormality other than arthritis. Independent interpretation of 4 view x-ray of the right shoulder shows some calcification within the femoral neck but no acute fracture or dislocation. My independent interpretation of the pelvis x-ray shows DJD but there is a question of the inferior pubic rami fracture. This may all be DJD but I am going to add further imaging. Radiology readings are all negative other than chronic and arthritic type changes. CT scan of the pelvis without contrast was read as no acute fracture. My independent evaluation also does not see a sign of fracture on this. I think the patient is able to go home. She is walking and mobile. Tylenol should be appropriate. We discussed reasons to return that would include headache, neurologic symptoms, weakness, development of any new areas of pain or different pain. Radiography Diagnostic Testing: Clinical Impression(s) from Imaging Studies Brain CT 03/11/22 14:09 IMPRESSION: Chronic involutional changes of the brain. Stable changes in the maxillary and ethmoid sinuses. Electronically Signed: Ok Murphy MD at 14:48 EST , Cervical Spine CT 03/11/22 14:09 IMPRESSION: Multilevel degenerative changes, as described above. Electronically Signed: Ok Murphy MD at 14:53 EST , Hip/Pelvis X-Ray 03/11/22 14:40 IMPRESSION: Moderate degree of joint space narrowing of both hip joints. No acute fracture or dislocation is seen. Electronically Signed: Ok Murphy MD at 14:54 EST , Shoulder X-Ray 03/11/22 14:40 IMPRESSION: No acute fracture or dislocation. Findings suggestive of chondroid calcification in the neck of the proximal right humerus. Electronically Signed: Ok Murphy MD at 14:57 EST , Pelvis CT 03/11/22 15:08 IMPRESSION: No acute pelvic abnormality. Electronically Signed: Nasir Subramanian MD at 16:27 EST , See MDM Discharge Plan Triage Chief Complaint: Fall ED Provider: Keny Noriega Dx/Rx/DC Orders Clinical Impression: Fall at home, Closed head injury, Contusion of right shoulder, initial encounter, Medication induced coagulopathy Instructions: Falls Prevent Adjust Living Space, ED Head Injury (Adult) Prescriptions: No Action atorvastatin 10 MG tablet 10 mg PO QHS aspirin 81 MG tablet,chewable 81 mg PO DAILY@0800 metoprolol succinate [Toprol XL] 50 MG tablet extended release 24 hr 50 mg PO QHS potassium chloride [Klor-Con M20] 20 MEQ tablet 20 meq PO DAILY cholecalciferol (vitamin D3) [Vitamin D3] 1,000 UNIT tablet 2,000 unit PO DAILY amlodipine 10 MG tablet 10 mg PO DAILY Label Comments: TAKE ONE TABLET BY MOUTH EVERY DAY Eliquis 2.5 MG tablet 2.5 mg PO BID Qty: 60 0RF Primary Care Provider: Denny Case Referrals: Denny Case MD [Primary Care Provider] - 3-5 Days if not improving Disposition Disposition: Home, Self Care
--- NOTE | 2022-03-11 14:40 | RAD_ITS ---
STUDY: X-RAY - PELVIS AND LEFT HIP REASON FOR EXAM: Female, 86 years old. Left hip pain following a fall. TECHNIQUE: 3 views of the pelvis and hip. COMPARISON: None. FINDINGS: There is a non-specific bowel gas pattern. There are multiple calcified phleboliths. There is narrowing with cortical sclerosis and osteophyte formation of the sacroiliac joint consistent with degenerative osteoarthritic changes. Normal bilateral superior and inferior pubic rami. Normal pubic symphysis. Normal bilateral ischial tuberosities. Normal visualized femoral head. Normal acetabulum. There is moderate articular joint space narrowing of the hip. RAD/HIP, UNI W/ Pelvis 2-3 Views IMPRESSION: Moderate degree of joint space narrowing of both hip joints. No acute fracture or dislocation is seen. Electronically Signed: Ok Murphy MD at 14:54 EST ,
--- NOTE | 2022-03-11 14:40 | RAD_ITS ---
STUDY: X-RAY - RIGHT SHOULDER REASON FOR EXAM: Female, 86 years old. Pain following a fall. TECHNIQUE: 4 view(s) of the shoulder. COMPARISON: None. FINDINGS: Normal glenohumeral articulation. Normal acromioclavicular joint. Normal acromion. There is a 2.8 cm x 1.3 cm matrix like calcification in the neck of the humerus suggestive of chondroid calcification. The soft tissue structures are unremarkable. Normal visualized pulmonary apex. RAD/Shoulder min 2 Views IMPRESSION: No acute fracture or dislocation. Findings suggestive of chondroid calcification in the neck of the proximal right humerus. Electronically Signed: Ok Murphy MD at 14:57 EST ,
[2022-03-11 15:00] VITALS: BP 118/72
--- NOTE | 2022-03-11 15:08 | CT_ITS ---
EXAM: CT PELVIS WITHOUT INTRAVENOUS CONTRAST CLINICAL INDICATION: Trauma, left buttock pain, question hip/pubic Fx TECHNIQUE: Helically acquired images were obtained of the pelvis without intravenous contrast. This CT exam was performed using one or more of the following dose reduction techniques: automated exposure control, adjustment of the mA and/or kV according to patient size, and/or use of iterative reconstruction technique. This report was created using [employer] report generation technology. COMPARISON: None. FINDINGS: BOWEL: Unremarkable as visualized. No bowel distention. No focal inflammatory change. APPENDIX: Surgical clips at the base of the cecum consistent with appendectomy. INTRAPERITONEAL SPACE: Normal. No ascites or other fluid collection. No free air. BLADDER: Normal. REPRODUCTIVE: Multiple small uterine calcifications consistent with fibroids measuring less than 1 cm in diameter. BONES/JOINTS: No acute fracture or subluxation. No suspicious lytic or blastic abnormality. SOFT TISSUES: Normal. No pelvic wall hernia. LYMPH NODES: Normal. No enlarged lymph nodes. CT/Pelvis without IV Contrast IMPRESSION: No acute pelvic abnormality. Electronically Signed: Nasir Subramanian MD at 16:27 EST ,
[2022-03-11 16:44] VITALS: RESP 14
== END 2022-03-11 16:44 | disposition home or self-care (01) ==
PROVIDERS: Emergency Provider Emergency Medicine; PCP Family Medicine; Visit Provider Emergency Medicine
DX: S09.90XA Unspecified injury of head, initial encounter (principal); I10 Essential (primary) hypertension; S40.011A Contusion of right shoulder, initial encounter; E78.00 Pure hypercholesterolemia, unspecified; W19.XXXA Unspecified fall, initial encounter
CPT/HCPCS: 70450; 72125; 72192; 73030; 73502; 99282

== ENCOUNTER 2022-05-11 05:48 | Emergency (ER) | payer MEDICARE, OTHER, SELFPAY ==
[2022-05-11 05:50] VITALS: BP 143/71; PULSE 82; RESP 15; TEMP 36.8; O2SAT 96; BMI 23.5
--- NOTE | 2022-05-11 06:07 | EKG12_ITS ---
Test Reason : PALPS Blood Pressure : / mmHG Vent. Rate : 073 BPM Atrial Rate : 073 BPM P-R Int : 156 ms QRS Dur : 132 ms QT Int : 440 ms P-R-T Axes : 011 -41 106 degrees QTc Int : 484 ms Normal sinus rhythm Left axis deviation Left bundle branch block Abnormal ECG Confirmed by MILENA SOMMER, DEEP ([id number]), news video editor KAREN DAIGLE ([id number]) on 05/12/2022 8:56:29 AM Referred By: AVI Confirmed By:DEEP ABBOTT MD
[2022-05-11 06:39] VITALS: BP 125/63; PULSE 67; RESP 14; O2SAT 99
--- NOTE | 2022-05-11 06:58 | EDS_ITS ---
HPI History of Present Illness Chief Complaint: Palpitations Narrative Narrative: Patient is an eight 6-year-old female with past medical history of paroxysmal atrial fibrillation currently on Eliquis. She states she awoke this morning and felt like her heart was skipping beats and racing. She states she took her pulse and it had gone anywhere from 85-1 17 and this concerned her and secondary to this she comes in for evaluation. She states that she typically takes metoprolol in the morning and nighttime and has not had her morning dose yet. She denies any excessive stimulant use or illicit drug use or any type of nausea vomiting or sick symptoms. She states she feels perfectly normal at this time but with the events occurring at home presented for evaluation. [facility] Medical History Afib HTN (hypertension) Hypercholesteremia Left atrial enlargement Left bundle branch block (LBBB) Renal failure Home Medications atorvastatin 10 mg tablet 10 mg PO QHS cholesterol 03/31/14 [History Last Taken Unknown] aspirin 81 mg chewable tablet 81 mg PO DAILY@0800 heart health 06/04/14 [History Last Taken Unknown] metoprolol succinate 50 mg tablet,extended release 24 hr (Toprol XL) 50 mg PO QHS blood pressure 05/14/16 [History Last Taken Unknown] potassium chloride 20 mEq tablet,extended release(part/cryst) (Klor-Con M) 20 meq PO DAILY supplement 05/14/16 [History Last Taken Unknown] cholecalciferol (vitamin D3) 25 mcg (1,000 unit) tablet (Vitamin D3) 2,000 unit PO DAILY vitamin 05/07/17 [History Last Taken Unknown] amlodipine 10 mg tablet 10 mg PO DAILY blood pressure 04/30/18 [History Last Taken Unknown] apixaban 2.5 mg tablet (Eliquis) 2.5 mg PO BID ##60 05/02/18 [Rx Last Taken Un known] Allergy/AdvReac Type Severity Reaction Status Date / Time meperidine HCl [From Demerol] Allergy Low blood Verified 03/11/22 13:00 pressure Penicillins [PCN] Allergy Anaphylaxis Verified 03/11/22 13:00 Sulfa (Sulfonamide Allergy Hives Verified 03/11/22 13:00 Antibiotics) Social History Smoking Status: Never smoker ROS ROS ED Constitutional Constitutional ED: Denies chills or fever(s) ENT ENT ED: Denies sore throat Cardiovascular Cardiovascular: Reports palpitations and racing heartbeat; Denies chest pain Respiratory/Chest Respiratory/Chest: Denies cough or dyspnea Gastrointestinal Gastrointestinal: Denies abdominal pain, diarrhea, nausea or vomiting Genitourinary Genitourinary ED: Denies dysuria Musculoskeletal Musculoskeletal: Denies myalgias Integumentary Denies rash Neurologic Neurologic: Denies headache(s) Hematologic/Lymphatic Hematologic/Lymphatic: Reports easy bleeding and easy bruising EXAM Physical Exam Const Vital Signs: 05/11/22 05:50 05/11/22 06:39 05/11/22 06:39 Temperature 98.2 F Temperature Source Temporal Pulse Rate 82 67 Respiratory Rate 15 14 Respiratory Pattern Normal Blood Pressure 143/71 H 125/63 H Blood Pressure Mean 95 83 Pulse Ox 96 99 Oxygen Delivery Method Room Air Room Air 05/11/22 07:06 Temperature Temperature Source Pulse Rate 62 Respiratory Rate 16 Respiratory Pattern Blood Pressure 140/59 H Blood Pressure Mean Pulse Ox 99 Oxygen Delivery Method Positive well nourished and well developed General Appearance ED: well developed HEENT Reports moist mucous membranes Eyes PERRL and EOMs intact bilaterally Neck supple and no JVD Chest Wall palpation of chest normal Resp normal respiratory effort and clear to auscultation bilaterally Cardio regular rate and regular rhythm Rate: other Other Details: Radial pulses are plus 2 out of 4 bilaterally are equal and symmetric GI normal to inspection, nondistended, normoactive bowel sounds, non-tender, non- distended and no masses GI Narrative: No voluntary guarding or rigidity no pulsatile mass or fluid wave Auscultation: normoactive bowel sounds Palpation: soft Extremity normal to inspection Extremity Narrative: No asymmetric edema no pitting edema negative Homans' sign bilaterally Neuro oriented x3 and CN's II-XII intact bilaterally Sensorium / Orientation: alert Psych Psych Narrative: Patient has a nervous/anxious affect Skin no rashes or lesions noted MDM MDM MDM Narrative Medical decision making narrative: Patient presented to the ER with stable vitals and spontaneous resolution of her symptoms. An EKG was obtained which shows normal sinus rhythm with left bundle branch block and this was compared to February 2022 and this is the same EKG she had at that time. She does have a known history of paroxysmal atrial fibrillation and with her report of palpitations and heart racing it is most likely that she went into atrial fibrillation but then converted before arriving to the hospital. She has no risk factors such as excessive stimulant use or illicit drug use and she has had no sick symptoms that would lead to electrolyte imbalance. Therefore this time I do not feel there is need for work-up as patient has a known history of paroxysmal atrial fibrillation is currently anticoagulated so concern for DVT/PE is low and has had no recent sick symptoms or derangement to her vital signs in the ER and her EKG is not normal sinus rhythm. The plan of care to simply have the patient be discharged and continue her normal medications now that she is symptom-free was discussed with her and her neighbor. Both are agreeable to this plan of care and therefore patient be discharged at this time History & Record Review Discussion w/independent historian: Patient and Friend Discharge Plan Triage Chief Complaint: Palpitations Other Complaint: Chest Pain ED Provider: Reynold Lindo Dx/Rx/DC Orders Clinical Impression: Paroxysmal A-fib, Left bundle branch block, History of hypertension Instructions: AFib Dc, Left Bundle Branch Block Prescriptions: No Action atorvastatin 10 MG tablet 10 mg PO QHS aspirin 81 MG tablet,chewable 81 mg PO DAILY@0800 metoprolol succinate [Toprol XL] 50 MG tablet extended release 24 hr 50 mg PO QHS potassium chloride [Klor-Con M20] 20 MEQ tablet 20 meq PO DAILY cholecalciferol (vitamin D3) [Vitamin D3] 1,000 UNIT tablet 2,000 unit PO DAILY amlodipine 10 MG tablet 10 mg PO DAILY Label Comments: TAKE ONE TABLET BY MOUTH EVERY DAY Eliquis 2.5 MG tablet 2.5 mg PO BID Qty: 60 0RF Primary Care Provider: Denny Case Referrals: Denny Case MD [Primary Care Provider] - Activity Restrictions/Additional Instructions: Please continue all of your normal medications as directed by your doctor. A normal heart rate is between 60 and 100 bpm. If your heart rate is under 120 bpm just take your medication as directed as this should slow your heart rate down and prevent any side effect. If your heart rate is consistently greater than 150 please come to the hospital for repeat evaluation Disposition Disposition: Home, Self Care Discharge Date/Time: 05/11/22 07:07
[2022-05-11 07:06] VITALS: BP 140/59; PULSE 62; RESP 16; O2SAT 99
== END 2022-05-11 07:07 | disposition home or self-care (01) ==
LOC: ED 06:34
PROVIDERS: Emergency Provider Emergency Medicine; PCP Family Medicine; Visit Provider Emergency Medicine
DX: I48.0 Paroxysmal atrial fibrillation (principal); I44.7 Left bundle-branch block, unspecified; I10 Essential (primary) hypertension; R00.2 Palpitations; E78.00 Pure hypercholesterolemia, unspecified; Z79.01 Long term (current) use of anticoagulants
CPT/HCPCS: 93005; 99282

== ENCOUNTER 2022-09-06 12:21 | Emergency (ER) | payer MEDICARE, OTHER, SELFPAY ==
[2022-09-06] VITALS (8 sets, daily range): BP systolic 128–158; BP diastolic 56–88; PULSE 68–77; RESP 15–22; TEMP 36.6; O2SAT 95–98; BMI 23.2
--- NOTE | 2022-09-06 12:46 | EKG12_ITS ---
Test Reason : Blood Pressure : / mmHG Vent. Rate : 067 BPM Atrial Rate : 067 BPM P-R Int : 182 ms QRS Dur : 132 ms QT Int : 446 ms P-R-T Axes : 035 -41 093 degrees QTc Int : 471 ms Normal sinus rhythm Left axis deviation Left bundle branch block Abnormal ECG When compared with ECG of 11-MAY-2022 05:58, No significant change was found Confirmed by MANOLO SOMMER, CARLOS ([id number]), desk editor KAREN DAIGLE ([id number]) on 09/09/2022 8:57:51 AM Referred By: CARTER/HOME Confirmed By:CARLOS FRENCH MD
--- NOTE | 2022-09-06 13:16 | EDS_ITS ---
HPI History of Present Illness Chief Complaint: Hypertension Informant: patient Onset/Context/Timing Onset: Today Context: Sudden Onset Timing: Continuous Quality: Flushing Location: Face Worsened by: Nothing Relieved by: Nothing Narrative Narrative: Patient presents with elevated blood pressures that were noticed today. Patient states she felt some facial flushing today. Patient checked her blood pressure at home and it was 151/74 at 6:30 AM. Patient states she took her normal medications at that time. Patient states she has been monitoring it throughout the morning. Patient states it was 149/63 at 7:30 AM. Patient states it was 151/65 at 9:10 AM. Patient states it was 155/67 at 12 noon. Patient denies any chest pain or shortness of breath. Patient denies any nausea or vomiting. Patient denies any headaches or weakness. Patient denies any other symptoms. [facility] Medical History Afib HTN (hypertension) Hypercholesteremia Left atrial enlargement Left bundle branch block (LBBB) Renal failure Medical History no medical history Home Medications atorvastatin 10 mg tablet 10 mg PO QHS cholesterol 03/31/14 [History Last Taken Unknown] aspirin 81 mg chewable tablet 81 mg PO DAILY@0800 heart health 06/04/14 [History Last Taken Unknown] metoprolol succinate 50 mg tablet,extended release 24 hr (Toprol XL) 50 mg PO QHS blood pressure 05/14/16 [History Last Taken Unknown] potassium chloride 20 mEq tablet,extended release(part/cryst) (Klor-Con M) 20 meq PO DAILY supplement 05/14/16 [History Last Taken Unknown] cholecalciferol (vitamin D3) 25 mcg (1,000 unit) tablet (Vitamin D3) 2,000 unit PO DAILY vitamin 05/07/17 [History Last Taken Unknown] amlodipine 10 mg tablet 10 mg PO DAILY blood pressure 04/30/18 [History Last T ak Unknown] apixaban 2.5 mg tablet (Eliquis) 2.5 mg PO BID ##60 05/02/18 [Rx Last Taken Unknown] Allergy/AdvReac Type Severity Reaction Status Date / Time meperidine HCl [From Demerol] Allergy Low blood Verified 09/06/22 12:23 pressure Penicillins [PCN] Allergy Anaphylaxis Verified 09/06/22 12:23 Sulfa (Sulfonamide Allergy Hives Verified 09/06/22 12:23 Antibiotics) Social History Smoking Status: Never smoker ROS ROS ED Constitutional Constitutional ED: Denies chills or fever(s) Eyes Eyes: Denies blurry vision or change in vision ENT ENT ED: Denies rhinorrhea or sore throat Cardiovascular Cardiovascular: Denies chest pain or palpitations Respiratory/Chest Respiratory/Chest: Denies cough or dyspnea Gastrointestinal Gastrointestinal: Denies nausea or vomiting Genitourinary Genitourinary ED: Denies dysuria or hematuria Musculoskeletal Musculoskeletal: Denies back pain or neck pain Integumentary Denies abscess or rash Neurologic Neurologic: Denies headache(s) or weakness Allergic/Immunologic Allergic/Immunologic ED: Denies mouth swelling or urticaria EXAM Physical Exam Const Vital Signs: 09/06/22 12:22 09/06/22 12:33 09/06/22 12:34 Temperature 98 F Temperature Source Temporal Pulse Rate 75 Pulse Rate [Lying] Pulse Rate [Sitting (for 1 minute prior to obtaining)] Pulse Rate [Standing (for 1 minute prior to obtaining)] Respiratory Rate 18 Respiratory Effort Normal Non-Labored Blood Pressure 152/71 H 155/71 H Blood Pressure [Lying] Blood Pressure [Sitting (for 1 minute prior to obtaining)] Blood Pressure [Standing (for 1 minute prior to obtaining)] Blood Pressure Mean 98 99 Blood Pressure Mean [Lying] Blood Pressure Mean [Sitting (for 1 minute prior to obtaining)] Blood Pressure Mean [Standing (for 1 minute prior to obtaining)] Pulse Ox 95 Oxygen Delivery Method Room Air 09/06/22 12:47 09/06/22 12:56 09/06/22 14:14 Temperature Temperature Source Pulse Rate 68 Pulse Rate [Lying] 72 Pulse Rate [Sitting (for 1 minute prior to obtaining)] 71 Pulse Rate [Standing (for 1 minute prior to obtaining)] 71 Respiratory Rate 17 Respiratory Effort Blood Pressure 154/69 H 150/56 H Blood Pressure [Lying] 156/66 H Blood Pressure [Sitting (for 1 minute prior to obtaining)] 158/62 H Blood Pressure [Standing (for 1 minute prior to obtaining)] 136/88 H Blood Pressure Mean 97 87 Blood Pressure Mean [Lying] 96 Blood Pressure Mean [Sitting (for 1 minute prior to obtaining)] 94 Blood Pressure Mean [Standing (for 1 minute prior to obtaining)] 104 Pulse Ox 98 Oxygen Delivery Method Room Air 09/06/22 15:01 Temperature Temperature Source Pulse Rate 77 Pulse Rate [Lying] Pulse Rate [Sitting (for 1 minute prior to obtaining)] Pulse Rate [Standing (for 1 minute prior to obtaining)] Respiratory Rate 22 H Respiratory Effort Blood Pressure 146/71 H Blood Pressure [Lying] Blood Pressure [Sitting (for 1 minute prior to obtaining)] Blood Pressure [Standing (for 1 minute prior to obtaining)] Blood Pressure Mean 96 Blood Pressure Mean [Lying] Blood Pressure Mean [Sitting (for 1 minute prior to obtaining)] Blood Pressure Mean [Standing (for 1 minute prior to obtaining)] Pulse Ox 97 Oxygen Delivery Method Room Air Positive well nourished and well developed General Appearance ED: well developed and NAD HEENT Reports moist mucous membranes Neck supple and no JVD Resp normal respiratory effort and clear to auscultation bilaterally Cardio regular rate and regular rhythm GI non-tender and non-distended Palpation: soft Extremity normal to inspection General Extremety ED: Negative for edema or tenderness General Extremity: Negative for edema Neuro oriented x3, CN's II-XII intact bilaterally and no sensory deficits noted Sensorium / Orientation: alert Motor Exam: strength 5/5 throughout Psych mental status grossly normal MDM MDM MDM Narrative Medical decision making narrative: Differential diagnosis includes uncontrolled hypertension, cardiac ischemia, anxiety, and electrolyte abnormality. EKG will be obtained to assess for cardiac dysrhythmia and cardiac ischemia. CBC will be obtained to assess for leukocytosis and anemia. Basic metabolic profile will be obtained to assess for electrolyte abnormality and renal function. High-sensitivity troponin will be obtained to assess for cardiac ischemia. Lab Data Attestation: I reviewed the patient's lab results. Lab results narrative: CBC was reviewed and was within normal limits. Basic metabolic profile was reviewed and was essentially within normal limits. High-sensitivity troponin was reviewed and was normal at 7. Labs: Laboratory Results - last 24 hr 09/06/22 13:08 WBC 5.6 RBC 4.03 L Hgb 12.0 Hct 38.3 MCV 95.0 MCH 29.8 MCHC 31.3 L RDW Std Deviation 49.4 H RDW Coeff of Oswald 14.1 Plt Count 236 MPV 9.7 Immature Gran % (Auto) 0.400 Neut % (Auto) 61.8 Lymph % (Auto) 25.6 Hitchcock % (Auto) 9.5 Eos % (Auto) 1.8 Baso % (Auto) 0.9 Absolute Neuts (auto) 3.5 Absolute Lymphs (auto) 1.43 Nucleated RBC % 0 Sodium 137 Potassium 3.8 Chloride 109 H Carbon Dioxide 24.0 Anion Gap 4 L BUN 17 Creatinine 0.91 Estim Creat Clear Calc 31.88 Est GFR (MDRD) Af Amer 75 Est GFR (MDRD) Non-Af 62 BUN/Creatinine Ratio 18.6 Glucose 111 H Calcium 9.2 Troponin I High Sens 7 EKG Initial EKG: Attestation: I personally reviewed and interpreted this EKG as follows: Interpretation: Sinus Rhythm (67), LBBB and Non-Specific ST Changes Comments: EKG was obtained. On my independent interpretation, it shows normal sinus rhythm with a rate of 67. NV interval was normal at 182 ms. QRS interval slightly prolonged at 132 ms. QTc interval was 471 ms. There is left axis deviation -41. There is a left bundle branch block pattern noted. There are nonspecific ST-T wave changes noted. Prior EKG tracings: available for review Prior: Unchanged (05/11/2022) Treatment and Re-Evaluation :: Orthostatic vital signs were obtained and were negative. Patient was advised of her findings. Patient is feeling better on reevaluation. Patient's blood pressure improved to 146/71. Patient was instructed to continue to monitor her blood pressures. Patient was instructed to follow-up with her primary care physician in 3 to 5 days. Patient understood and was agreeable with the plan. All questions were answered. Discharge Plan Triage Chief Complaint: Hypertension ED Provider: Michael Rodriguez Dx/Rx/DC Orders Clinical Impression: A-fib, Hypertension Instructions: ED Hypertension, Established Prescriptions: No Action atorvastatin 10 MG tablet 10 mg PO QHS aspirin 81 MG tablet,chewable 81 mg PO DAILY@0800 metoprolol succinate [Toprol XL] 50 MG tablet extended release 24 hr 50 mg PO QHS potassium chloride [Klor-Con M20] 20 MEQ tablet 20 meq PO DAILY cholecalciferol (vitamin D3) [Vitamin D3] 1,000 UNIT tablet 2,000 unit PO DAILY amlodipine 10 MG tablet 10 mg PO DAILY Patient Comments: TAKE ONE TABLET BY MOUTH EVERY DAY Eliquis 2.5 MG tablet 2.5 mg PO BID Qty: 60 0RF Primary Care Provider: Denny Case Referrals: Denny Case MD [Primary Care Provider] - 5-7 Days Disposition Disposition: Home, Self Care
[2022-09-06 13:27] LABS: Absolute Lymphocyte Count 1.43 X10^3/uL (0.83-4.51); Absolute Neutrophil Count 3.5 X10^3/uL (2.0-7.7); Basophil# 0.05 X10^3/uL; Basophil% 0.9 % (0-1); Eosinophils% 1.8 % (0-5); Hematocrit 38.3 % (37-47); Lymphocyte # 1.43 X10^3/ul (0.83-4.51); Lymphocyte % 25.6 % (19-41); Mean Corp Hgb Conc 31.3 g/dL (32-36); Mean Corpuscular Hgb 29.8 pg (27.0-32.0); Mean Platelet Vol. 9.7 fl (6.2-12.0); Monocyte# 0.53 X10^3/uL; Monocyte% 9.5 % (0-10); NRBC Flagged by Analyzer 0 % (0-5); Neutrophil # 3.45 X10^3/uL (2.7-7.7); Neutrophil % 61.8 % (47-70); Platelet Count 236 K/mm3 (150-450); RBC Distribution Width CV 14.1 % (11.6-14.6); RBC Distribution Width SD 49.4 fl (35.1-43.9); Red Blood Count 4.03 M/mm3 (4.2-5.4); White Blood Count 5.6 K/mm3 (4.4-11.0)
[2022-09-06 13:34] LABS: Anion Gap 4 (5-15); BUN 17 mg/dL (7-18); BUN/Creat Ratio 18.6 RATIO (10-20); Calcium,Total 9.2 mg/dL (8.5-10.1); Chloride 109 mmol/L (98-107); Creatinine, Serum 0.91 mg/dL (0.55-1.02); EST Glomerular Filtration Rate 62 mL/min (>60); Est Glom Filt Rate - Afr Amer 75 mL/min (>60); Estimated Creatinine Clearance 31.88 ml/min; Glucose 111 mg/dL (74-106); Potassium 3.8 mmol/L (3.5-5.1); Sodium Level 137 mmol/L (136-145); Troponin-I HS 7 pg/mL (3.0-54.0)
== END 2022-09-06 16:51 | disposition home or self-care (01) ==
PROVIDERS: Emergency Provider Emergency Medicine; PCP Family Medicine; Visit Provider Emergency Medicine
DX: I48.91 Unspecified atrial fibrillation (principal); E78.00 Pure hypercholesterolemia, unspecified; I10 Essential (primary) hypertension
CPT/HCPCS: 80048; 84484; 85025; 93005; 99284; A4216

== ENCOUNTER 2024-01-07 20:26 | Emergency (ER) | payer MEDICARE, OTHER, SELFPAY ==
[2024-01-07] VITALS (12 sets, daily range): BP systolic 151–206; BP diastolic 68–99; PULSE 69–95; RESP 14–25; TEMP 36.6–36.9; O2SAT 96–99; BMI 24.8
--- NOTE | 2024-01-07 20:30 | EKG12_ITS ---
Test Reason : DYSRHYTHMIA Blood Pressure : */* mmHG Vent. Rate : 105 BPM Atrial Rate : * BPM P-R Int : * ms QRS Dur : 128 ms QT Int : 334 ms P-R-T Axes : * -49 126 degrees QTcB Int : 441 ms Atrial fibrillation with rapid ventricular response Left axis deviation Left bundle branch block Abnormal ECG Confirmed by Giorgio Beach ([id number]), business editor CLEVELAND GALLARDO ([id number]) on 01/08/2024 9:23:34 AM Referred By: Confirmed By: Giorgio Beach
--- NOTE | 2024-01-07 20:32 | EX.ED.DYSGE1 ---
HPI History of Present Illness Chief Complaint: Palpitations [facility] Medical History Afib HTN (hypertension) Hypercholesteremia Left atrial enlargement Left bundle branch block (LBBB) Renal failure Medical History no medical history Home Medications ?Medication ?Instructions ?Recorded ?Last Taken ?Type atorvastatin 10 mg tablet 10 mg PO QHS cholesterol 03/31/14 Unknown History aspirin 81 mg chewable tablet 81 mg PO DAILY@0800 heart health 06/04/14 Unknown History metoprolol succinate 50 mg 50 mg PO QHS blood pressure 05/14/16 Unknown History tablet,extended release 24 hr (Toprol XL) potassium chloride 20 mEq 20 meq PO DAILY supplement 05/14/16 Unknown History tablet,extended release(part/cryst) (Klor-Con M) cholecalciferol (vitamin D3) 25 2,000 unit PO DAILY vitamin 05/07/17 Unknown History mcg (1,000 unit) tablet (Vitamin D3) amlodipine 10 mg tablet 10 mg PO DAILY blood pressure 04/30/18 Unknown History apixaban 2.5 mg tablet (Eliquis) 2.5 mg PO BID ##60 05/02/18 Unknown Rx magnesium chloride 71.5 mg 143 mg PO DAILY 01/07/24 Unknown History (magnesium chloride) tablet,delayed release (Slow-Mag) Allergy/AdvReac Type Severity Reaction Status Date / Time meperidine HCl (From Demerol) Allergy Low blood Verified 01/07/24 20:29 pressure Penicillins (PCN) Allergy Anaphylaxis Verified 01/07/24 20:29 Sulfa (Sulfonamide Allergy Hives Verified 01/07/24 20:29 Antibiotics) Social History Smoking Status: Never smoker EXAM Physical Exam Const Vital Signs: 01/07/24 20:27 01/07/24 20:40 01/07/24 20:42 Temperature 98.4 F Temperature Source Oral Pulse Rate 95 84 Respiratory Rate 16 25 H Blood Pressure 156/96 H 190/87 H Blood Pressure Mean 116 118 Pulse Ox 97 98 Oxygen Delivery Method Room Air 01/07/24 20:45 01/07/24 21:00 01/07/24 21:15 Temperature Temperature Source Pulse Rate 73 74 73 Respiratory Rate 19 H 14 15 Blood Pressure 202/89 H Blood Pressure Mean 123 Pulse Ox 97 98 97 Oxygen Delivery Method 01/07/24 21:39 Temperature Temperature Source Pulse Rate Respiratory Rate Blood Pressure 151/68 H Blood Pressure Mean 95 Pulse Ox Oxygen Delivery Method [facility] [place] Medical decision making narrative: HISTORY OF PRESENT ILLNESS: 88-year-old female presents with concern for being in A-fib again. The patient states she developed palpitations this evening. Notes she took her metoprolol at 7 PM as noted slight improvement in symptoms since then. Denies chest pain, shortness of breath. Notes compliance Eliquis. Last dose was this morning. No vomiting, no diarrhea, no bleeding diathesis. REVIEW OF SYSTEMS: Pertinent positives: Palpitations Pertinent negatives: Chest pain, shortness breath, fever, cough, vomiting, diarrhea, bleeding diathesis PHYSICAL EXAM: Nursing triage notes reviewed, Vital signs reviewed Constitutional: please see mdm HENT: MMM Eyes: Pupils equal round and reactive to light, Extraocular muscles intact Neck: No stridor, no JVD, full neck ROM Lungs: Clear to auscultation, No wheezing or rales. No increased work of breathing, no conversational dyspnea, no accessory muscle use, no nasal flaring. No respiratory distress noted Heart: Regular rate and rhythm, No murmurs, No rubs and No gallops, 2+ distal pulses (radial, femoral, posterior tibial) in all extremities Abdomen: Soft, there is no tenderness, rigidity, rebound or guarding, no obvious peritoneal signs, no palpable pulsatile abdominal masses, no auscultated abdominal bruit : No CVAT Extremities: No edema Neuro: No focal neurological deficits, cranial nerves II through XII intact, 5/5 strength in all extremities. Intact sensation to light touch in all extremities, 2+ reflexes bilateral patella tendons. Normal gait. No ataxia. Skin: No rash or lesions noted MEDICAL DECISION MAKING: Chief Complaint: Palpitation External records reviewed: Reviewed allergies, problem list, current medications which include metoprolol and Eliquis Factors affecting care: Atrial fibrillation Social determinants of health: none History obtained from others: [place] Consults: none [facility] Narrative: Patient was initially hemodynamically stable, afebrile and nontoxic-appearing. Exam with irregularly irregular rate however in the 70s on my exam. Lungs are clear. No leg swelling. No stigmata VTE I considered the following differential diagnosis: Arrhythmia, anemia, electrolyte disturbance, myocardial ischemia ALL IMAGES (IF OBTAINED) HAVE BEEN PERSONALLY REVIEWED AND INTERPRETED BY MYSELF. EKG with A-fib rate of 105, left ax deviation, normal intervals, no STEMI CBC without leukocytosis, severe anemia, no thrombocytopenia. I have personally reviewed the patient's chest x-ray. Chest x-ray is unremarkable for pulmonary edema, pneumothorax, pneumonia or focal cardiopulmonary abnormality. High-sensitivity troponin is negative, no evidence of myocardial ischemia Repeat EKG showed normal sinus rhythm, left axis deviation, left bundle branch block, no STEMI Upon reevaluation the patient's heart rate improved to 73. She is in normal sinus rhythm. She is asymptomatic. She is appropriate for discharge home The synthesis of the patient history, physical exam, labs images suggest likely transient exacerbation of A-fib with RVR. He has been his heart rate was less than 110. She had no signs of anemia, electro disturbance, severe dehydration or myocardial ischemia to precipitate worsening A-fib. She is already anticoagulated she is on home metoprolol which she took tonight. 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 Notification for admission at this time The patient and/or family, caregivers express understanding. The patient and/or family, caregivers agrees with the plan. Shared decision making: I will have a discussion with the patient and or visitors regarding risk/benefits of further testing or admission. They will be made aware of of the risk/benefits inherent in this decision they will be given the opportunity to voice understanding. Total critical care time today provided was at least 0 minutes. This excludes separately billable procedures. Critical care time (if documented) is secondary to the patient having high probability of clinically significant/life threatening deterioration in the patient's condition which required my urgent intervention. Impression: 1. Palpitations 2. History of atrial fibrillation Dispo: This note was generated with [employer]eebbo dictation software. It may contain incorrect words, spelling, and punctuation that were not noted in review of the chart prior to signing. Lab Data Labs: Laboratory Results - last 24 hr 01/07/24 20:40 WBC 7.1 RBC 4.33 Hgb 12.9 Hct 39.2 MCV 90.5 MCH 29.8 MCHC 32.9 RDW Std Deviation 45.6 H RDW Coeff of Oswald 13.7 Plt Count 275 MPV 9.4 Sodium 140 Potassium 3.8 Chloride 108 H Carbon Dioxide 24.0 Anion Gap 8 BUN 27 H Creatinine 1.28 H Estim Creat Clear Calc 24.63 Est GFR (MDRD) Af Amer 51 L Est GFR (MDRD) Non-Af 42 L BUN/Creatinine Ratio 21.1 H Glucose 197 H Calcium 9.2 Troponin I High Sens 10 Discharge Plan Triage Chief Complaint: Palpitations ED Provider: Nadeem Gonzalez Dx/Rx/DC Orders Instructions: ED AFIB Prescriptions: No Action atorvastatin 10 MG tablet 10 mg PO QHS aspirin 81 MG tablet,chewable 81 mg PO DAILY@0800 metoprolol succinate [Toprol XL] 50 MG tablet extended release 24 hr 50 mg PO QHS potassium chloride [Klor-Con M20] 20 MEQ tablet 20 meq PO DAILY cholecalciferol (vitamin D3) [Vitamin D3] 1,000 UNIT tablet 2,000 unit PO DAILY amlodipine 10 MG tablet 10 mg PO DAILY Patient Comments: TAKE ONE TABLET BY MOUTH EVERY DAY Eliquis 2.5 MG tablet 2.5 mg PO BID Qty: 60 0RF Slow-Mag 71.5 mg tablet,delayed release (DR/EC) 143 mg PO DAILY Primary Care Provider: Denny Case Referrals: Colton Miner MD [Med Staff - Active Staff] - Activity Restrictions/Additional Instructions: Thank you for trusting us with your care today! Your presentation is likely secondary to atrial fibrillation. This was controlled with your home metoprolol. Please continue taking medications at home as prescribed. Please take Tylenol (2 pills, 650 mg), ibuprofen (2 pills, 400 mg) every 6 hours as needed for pain and fever control. Please return to the emergency department if your symptoms change or worsen. Please follow with your Cardiology for further outpatient evaluation and management. Print Language: Upper Sorbian Disposition Disposition: Home, Self Care
--- NOTE | 2024-01-07 20:55 | RAD_ITS ---
INDICATION: palpitations EXAMINATION/TECHNIQUE: X-RAY - XR Chest 1 View COMPARISON: 04/30/2018 chest radiograph. Findings: Single frontal view of the chest. LUNG PARENCHYMA: No acute focal airspace disease or mass lesion. PLEURA: No pleural effusion. No pneumothorax. HEART/GREAT VESSELS: Cardiomediastinal silhouette is unremarkable. 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 Midthoracic dextroscoliosis. RAD/Chest 1 View (Portable) IMPRESSION: Chest with no acute disease. Electronically Signed: Chirag Bill MD at 22:38 EST ,
[2024-01-07 20:59] LABS: Hematocrit 39.2 % (37-47); Hemoglobin 12.9 g/dL (12.0-15.0); Mean Corp Hgb Conc 32.9 g/dL (32-36); Mean Corpuscular Hgb 29.8 pg (27.0-32.0); Mean Corpuscular Volume 90.5 fL (81-99); Mean Platelet Vol. 9.4 fl (6.2-12.0); Platelet Count 275 K/mm3 (150-450); RBC Distribution Width CV 13.7 % (11.6-14.6); RBC Distribution Width SD 45.6 fl (35.1-43.9); Red Blood Count 4.33 M/mm3 (4.2-5.4); White Blood Count 7.1 K/mm3 (4.4-11.0)
[2024-01-07 21:27] LABS: Anion Gap 8 (5-15); BUN 27 mg/dL (7-18); BUN/Creat Ratio 21.1 RATIO (10-20); Calcium,Total 9.2 mg/dL (8.5-10.1); Chloride 108 mmol/L (98-107); Creatinine, Serum 1.28 mg/dL (0.55-1.02); EST Glomerular Filtration Rate 42 mL/min (>60); Est Glom Filt Rate - Afr Amer 51 mL/min (>60); Estimated Creatinine Clearance 24.63 ml/min; Glucose 197 mg/dL (74-106); Potassium 3.8 mmol/L (3.5-5.1); Sodium Level 140 mmol/L (136-145); Troponin-I HS 10 pg/mL (3.0-54.0)
--- NOTE | 2024-01-07 21:46 | EKG12_ITS ---
Test Reason : RHYTHM CONVERSION Blood Pressure : */* mmHG Vent. Rate : 71 BPM Atrial Rate : 71 BPM P-R Int : 192 ms QRS Dur : 132 ms QT Int : 444 ms P-R-T Axes : 46 -49 102 degrees QTcB Int : 482 ms Normal sinus rhythm Left axis deviation Left bundle branch block Abnormal ECG Confirmed by Giorgio Beach ([id number]), videotape editor CLEVELAND GALLARDO ([id number]) on 01/08/2024 9:23:57 AM Referred By: SULY Confirmed By: Giorgio Beach
== END 2024-01-07 22:23 | disposition home or self-care (01) ==
PROVIDERS: Emergency Provider Emergency Medicine; PCP Family Medicine; Visit Provider Emergency Medicine
DX: R00.2 Palpitations (principal); I48.91 Unspecified atrial fibrillation; I10 Essential (primary) hypertension; I44.7 Left bundle-branch block, unspecified; E78.00 Pure hypercholesterolemia, unspecified; Z79.01 Long term (current) use of anticoagulants; Z79.899 Other long term (current) drug therapy
CPT/HCPCS: 71045; 80048; 84484; 85027; 93005; 99284; A4216

== ENCOUNTER 2024-05-27 08:40 | Emergency (ER) | payer MEDICARE, OTHER, SELFPAY ==
[2024-05-27 08:42] VITALS: BP 136/65; PULSE 72; RESP 18; TEMP 36.6; O2SAT 98
--- NOTE | 2024-05-27 08:57 | EX.ED.DYSGE1 ---
HPI History of Present Illness Chief Complaint: Nosebleed Informant: patient and family Narrative Narrative: 88-year-old female presenting to the emergency room with epistaxis. Patient has a history of atrial fibrillation and is on Eliquis. Patient states that she has had some small nosebleeds in the past but this 1 seemed worse. This started around 0700 hrs. this morning. She states it is coming out of the left nostril and she feels that she could blow a clot out of it. Patient denies any nasal trauma. No history of nasal malignancy. She has not yet taken her blood pressure medications this morning. [facility] Medical History Left bundle branch block (LBBB) Renal failure Left atrial enlargement Hypercholesteremia HTN (hypertension) Afib Home Medications ?Medication ?Instructions ?Recorded ?Last Taken ?Type atorvastatin 10 mg tablet 10 mg PO QHS cholesterol 03/31/14 Unknown History aspirin 81 mg chewable tablet 81 mg PO DAILY@0800 heart health 06/04/14 Unknown History metoprolol succinate 50 mg 50 mg PO QHS blood pressure 05/14/16 Unknown History tablet,extended release 24 hr (Toprol XL) potassium chloride 20 mEq 20 meq PO DAILY supplement 05/14/16 Unknown History tablet,extended release(part/cryst) (Klor-Con M) cholecalciferol (vitamin D3) 25 2,000 unit PO DAILY vitamin 05/07/17 Unknown History mcg (1,000 unit) tablet (Vitamin D3) amlodipine 10 mg tablet 10 mg PO DAILY blood pressure 04/30/18 Unknown History apixaban 2.5 mg tablet (Eliquis) 2.5 mg PO BID ##60 05/02/18 Unknown Rx magnesium chloride 71.5 mg 143 mg PO DAILY 01/07/24 Unknown History (magnesium chloride) tablet,delayed release (Slow-Mag) Allergy/AdvReac Type Severity Reaction Status Date / Time meperidine HCl (From Demerol) Allergy Low blood Verified 05/27/24 08:42 pressure Penicillins (PCN) Allergy Anaphylaxis Verified 05/27/24 08:42 Sulfa (Sulfonamide Allergy Hives Verified 05/27/24 08:42 Antibiotics) prednisone AdvReac PT UNSURE Verified 05/27/24 08:42 OF REACTION Social History Smoking Status: Never smoker ROS ROS ED Constitutional Constitutional ED: Denies chills or weight loss Eyes Eyes: Denies change in vision or diplopia ENT ENT ED: Reports other Details: See history of present illness ; Denies ear pain, rhinorrhea or sore throat Cardiovascular Cardiovascular: Denies chest pain, orthopnea, palpitations or racing heartbeat Respiratory/Chest Respiratory/Chest: Denies cough, dyspnea or orthopnea Gastrointestinal Gastrointestinal: Denies abdominal pain, diarrhea, nausea or vomiting Genitourinary Genitourinary ED: Denies dysuria, hematuria or urinary frequency Musculoskeletal Musculoskeletal: Denies arthralgias or myalgias Integumentary Denies abscess or rash Neurologic Neurologic: Denies headache(s) or weakness Psychiatric Psychiatric: Denies anxiety, depression, suicidal ideation or suicidal thoughts Endocrine Endocrinology: Denies polydipsia, polyphagia or polyuria Allergic/Immunologic Allergic/Immunologic ED: Denies mouth swelling, tongue swelling or urticaria EXAM Physical Exam Const Vital Signs: 05/27/24 08:42 Temperature 97.8 F Temperature Source Oral Pulse Rate 72 Respiratory Rate 18 Blood Pressure 136/65 H Blood Pressure Mean 88 Pulse Ox 98 Oxygen Delivery Method Room Air Positive well nourished and well developed General Appearance ED: well developed HEENT Reports normocephalic, head/scalp atraumatic and moist mucous membranes HEENT Narrative: Anterior nasal plexus appears normal bilaterally. Clots were expressed out of the left naris by patient blowing and the patient coughing. There is some evidence of bloody postnasal drip that appears clotted on oropharyngeal exam. No facial swelling. No ecchymosis is seen. No active bleeding is seen. Eyes PERRL and EOMs intact bilaterally Neck no lymphadenopathy, supple and no JVD Resp normal respiratory effort and clear to auscultation bilaterally Cardio regular rate, regular rhythm and no murmurs GI normal to inspection, nondistended, normoactive bowel sounds and non-tender Palpation: soft Back/Spine no CVA tenderness and normal ROM Extremity normal to inspection General Extremety ED: Negative for edema General Extremity: Negative for edema Neuro oriented x3 and CN's II-XII intact bilaterally Sensorium / Orientation: alert Motor Exam: strength 5/5 throughout Psych mental status grossly normal Mood & Affect: Negative for depressed or tearful Skin no rashes or lesions noted and no wounds MDM MDM MDM Narrative Medical decision making narrative: Differential diagnosis includes anticoagulated state, anterior epistaxis posterior epistaxis malignancy sinusitis Afrin was instilled into each nare. She was observed. No further bleeding was seen. The patient got up walked around the department with no further bleeding. She was advised that should she rebleed she should apply nasal pincers and come back to emergency. She was advised as well as her family that due to the unpredictable nature of nosebleeds I cannot predict whether or not she may bleed again. She was advised that if she does rebleed packing may be necessary. History & Record Review Discussion w/independent historian: Patient and Family Discharge Plan Triage Chief Complaint: Nosebleed ED Provider: Ramírez Mccullough Dx/Rx/DC Orders Clinical Impression: Acute posterior epistaxis, Anticoagulated Instructions: ED Epistaxis (Adult) Prescriptions: No Action atorvastatin 10 MG tablet 10 mg PO QHS aspirin 81 MG tablet,chewable 81 mg PO DAILY@0800 metoprolol succinate [Toprol XL] 50 MG tablet extended release 24 hr 50 mg PO QHS potassium chloride [Klor-Con M20] 20 MEQ tablet 20 meq PO DAILY cholecalciferol (vitamin D3) [Vitamin D3] 1,000 UNIT tablet 2,000 unit PO DAILY amlodipine 10 MG tablet 10 mg PO DAILY Patient Comments: TAKE ONE TABLET BY MOUTH EVERY DAY Eliquis 2.5 MG tablet 2.5 mg PO BID Qty: 60 0RF Slow-Mag 71.5 mg tablet,delayed release (DR/EC) 143 mg PO DAILY Primary Care Provider: Denny Case Referrals: Denny Case MD [Primary Care Provider] - Dorian Willis MD [Med Staff - Active Staff] - As Needed Print Language: Monegasque Disposition Disposition: Home, Self Care
[2024-05-27] MEDS: Oxymetazoline 0.05% 1 SPRAY SPRAY.BTL 4 SPRAY NASAL (08:59)
[2024-05-27 09:57] VITALS: BP 136/65; PULSE 72; RESP 18; TEMP 36.6; O2SAT 98
== END 2024-05-27 09:58 | disposition home or self-care (01) ==
LOC: ED 09:19
PROVIDERS: Emergency Provider Emergency Medicine; PCP Family Medicine; Visit Provider Emergency Medicine
DX: R04.0 Epistaxis (principal); I48.91 Unspecified atrial fibrillation; E78.00 Pure hypercholesterolemia, unspecified; I10 Essential (primary) hypertension; Z79.01 Long term (current) use of anticoagulants
CPT/HCPCS: 99282

== ENCOUNTER 2024-06-02 08:33 | Emergency (ER) | payer MEDICARE, OTHER, SELFPAY ==
[2024-06-02 08:35] VITALS: BP 168/78; PULSE 69; RESP 14; TEMP 36.1; O2SAT 99; BMI 23.8
[2024-06-02 10:54] VITALS: BP 154/73; PULSE 79; RESP 16; O2SAT 99
--- NOTE | 2024-06-02 11:44 | EX.ED.DYSGE1 ---
HPI History of Present Illness Chief Complaint: Nosebleed Informant: patient and family Narrative Narrative: 88-year-old female presenting to the emergency room with epistaxis. Patient does take Eliquis. She was seen last week for epistaxis. She did not have reoccurrence. She was holding her Eliquis but resumed it. She notes bleeding returned out of the left naris which was the side that she bled from last week. She has seen Dr. Willis locally for ENT. [facility] Medical History Left bundle branch block (LBBB) Renal failure Left atrial enlargement Hypercholesteremia HTN (hypertension) Afib Home Medications ?Medication ?Instructions ?Recorded ?Last Taken ?Type atorvastatin 10 mg tablet 10 mg PO QHS cholesterol 03/31/14 Unknown History aspirin 81 mg chewable tablet 81 mg PO DAILY@0800 heart health 06/04/14 Unknown History metoprolol succinate 50 mg 50 mg PO QHS blood pressure 05/14/16 Unknown History tablet,extended release 24 hr (Toprol XL) potassium chloride 20 mEq 20 meq PO DAILY supplement 05/14/16 Unknown History tablet,extended release(part/cryst) (Klor-Con M) cholecalciferol (vitamin D3) 25 2,000 unit PO DAILY vitamin 05/07/17 Unknown History mcg (1,000 unit) tablet (Vitamin D3) amlodipine 10 mg tablet 10 mg PO DAILY blood pressure 04/30/18 Unknown History apixaban 2.5 mg tablet (Eliquis) 2.5 mg PO BID ##60 05/02/18 Unknown Rx magnesium chloride 71.5 mg 143 mg PO DAILY 01/07/24 Unknown History (magnesium chloride) tablet,delayed release (Slow-Mag) Allergy/AdvReac Type Severity Reaction Status Date / Time meperidine HCl (From Demerol) Allergy Low blood Verified 06/02/24 08:34 pressure Penicillins (PCN) Allergy Anaphylaxis Verified 06/02/24 08:34 Sulfa (Sulfonamide Allergy Hives Verified 06/02/24 08:34 Antibiotics) prednisone AdvReac PT UNSURE Verified 06/02/24 08:34 OF REACTION Social History Smoking Status: Never smoker ROS ROS ED Constitutional Constitutional ED: Denies chills or weight loss Eyes Eyes: Denies change in vision or diplopia ENT ENT ED: Reports other Details: See history of present illness ; Denies ear pain, rhinorrhea or sore throat Cardiovascular Cardiovascular: Denies chest pain, orthopnea, palpitations or racing heartbeat Respiratory/Chest Respiratory/Chest: Denies cough, dyspnea or orthopnea Gastrointestinal Gastrointestinal: Denies abdominal pain, diarrhea, nausea or vomiting Genitourinary Genitourinary ED: Denies dysuria, hematuria or urinary frequency Musculoskeletal Musculoskeletal: Denies arthralgias or myalgias Integumentary Denies abscess or rash Neurologic Neurologic: Denies headache(s) or weakness Psychiatric Psychiatric: Denies anxiety, depression, suicidal ideation or suicidal thoughts Endocrine Endocrinology: Denies polydipsia, polyphagia or polyuria Allergic/Immunologic Allergic/Immunologic ED: Denies mouth swelling, tongue swelling or urticaria EXAM Physical Exam Const Vital Signs: 06/02/24 08:35 06/02/24 10:54 Temperature 96.9 F L Temperature Source Temporal Pulse Rate 69 79 Respiratory Rate 14 16 Blood Pressure 168/78 H 154/73 H Blood Pressure Mean 108 100 Pulse Ox 99 99 Oxygen Delivery Method Room Air Positive well nourished and well developed General Appearance ED: well developed; Negative for pallor HEENT Reports normocephalic, head/scalp atraumatic and moist mucous membranes HEENT Narrative: Clots were removed from the patient's nares by blowing. She continues to have some venous appearing bleeding from the left naris. There is evidence of blood in the posterior pharynx. I do not see an obvious source. Eyes PERRL and EOMs intact bilaterally General Eye ED: Negative for pale conjunctiva Neck no lymphadenopathy, supple and no JVD Resp normal respiratory effort and clear to auscultation bilaterally Cardio no murmurs Rhythm: abnormal rhythm irregularly irregular GI normal to inspection, nondistended, normoactive bowel sounds and non-tender Palpation: soft Back/Spine no CVA tenderness and normal ROM Extremity normal to inspection General Extremety ED: Negative for edema General Extremity: Negative for edema Neuro oriented x3 and CN's II-XII intact bilaterally Sensorium / Orientation: alert Motor Exam: strength 5/5 throughout Psych mental status grossly normal Mood & Affect: Negative for depressed or tearful Skin no rashes or lesions noted and no wounds General Skin Exam: Negative for pallor MDM MDM MDM Narrative Medical decision making narrative: Differential diagnosis includes but not limited to anterior epistaxis posterior epistaxis anticoagulation anemia hypertension I placed a 7.5 cm Rhino Rocket and inflated the balloon. She was observed for approximately 2 hours and has had no further bleeding. No recommend that the packing stay in for 72 hours and have her follow-up with the ENT. She wishes to hold her Eliquis which is very reasonable. She understands the risk of stroke. Patient to return if worsening or concerns History & Record Review Discussion w/independent historian: Patient and Family Discharge Plan Triage Chief Complaint: Nosebleed ED Provider: Ramírez Mccullough Dx/Rx/DC Orders Clinical Impression: Acute posterior epistaxis, Anticoagulated Instructions: ED Epistaxis (Adult) Prescriptions: No Action atorvastatin 10 MG tablet 10 mg PO QHS aspirin 81 MG tablet,chewable 81 mg PO DAILY@0800 metoprolol succinate [Toprol XL] 50 MG tablet extended release 24 hr 50 mg PO QHS potassium chloride [Klor-Con M20] 20 MEQ tablet 20 meq PO DAILY cholecalciferol (vitamin D3) [Vitamin D3] 1,000 UNIT tablet 2,000 unit PO DAILY amlodipine 10 MG tablet 10 mg PO DAILY Patient Comments: TAKE ONE TABLET BY MOUTH EVERY DAY Eliquis 2.5 MG tablet 2.5 mg PO BID Qty: 60 0RF Slow-Mag 71.5 mg tablet,delayed release (DR/EC) 143 mg PO DAILY Primary Care Provider: Denny Case Referrals: Denny Case MD [Primary Care Provider] - Dorian Willis MD [Med Staff - Active Staff] - (in 3 days for packing removal) Print Language: Lithuanian Disposition Disposition: Home, Self Care Discharge Date/Time: 06/02/24 10:55
== END 2024-06-02 10:55 | disposition home or self-care (01) ==
PROVIDERS: Emergency Provider Emergency Medicine; PCP Family Medicine; Visit Provider Emergency Medicine
DX: R04.0 Epistaxis (principal); I48.91 Unspecified atrial fibrillation; I10 Essential (primary) hypertension; E78.00 Pure hypercholesterolemia, unspecified; Z79.01 Long term (current) use of anticoagulants; Z79.82 Long term (current) use of aspirin; Z79.899 Other long term (current) drug therapy
CPT/HCPCS: 30905; 99282